=== PATIENT | female | born 1940 | race Native Hawaiian/Other Pacific Islander ===

== ENCOUNTER 2021-11-22 10:18 | Inpatient (IN) | payer MEDICARE, OTHER ==
[2021-11-22 10:28] LABS: Glucose,Whole Blood 109 mg/dL (70-110)
--- NOTE | 2021-11-22 11:04 | ED ---
General Adult HPI - General Chief complaint: Altered Mental Status Stated complaint: weakness Time Seen by Provider: 11/22/21 10:19 Source: patient, family Mode of arrival: EMS - History of Present Illness Initial comments: Dictation was produced using [employer] dictation software. please excuse any grammatical, word or spelling errors. Chief Complaint: Patient is a 81-year-old female with past mental history of dementia and agitation presents emergency department for lethargy History of Present Illness: Patient is a 81-year-old female. History of present illness obtained from daughter was at the bedside. Patient is unable to provide history present illness. Patient arrived to ER via EMS. From home. Patient was brought to the ER for several days of lethargy and difficulty to arouse. She also has a new onset left facial droop. Patient has history of dementia normally resides in [place] however staying with a daughter. Daughter states that her symptoms began over the last 2-3 days. At first she was little lethargic however now she is difficult to arouse. The ROS documented in this emergency department record has been reviewed and con firmed by me. Those systems with pertinent positive or negative responses have been documented in the HPI. All other systems are other negative and/or noncontributory. PHYSICAL EXAM: General Impression: Lethargic, pinpoint pupils HEENT: Normocephalic atraumatic, extra-ocular movements intact, pupils pinpoint, dry mucous membranes Cardiovascular: Heart regular rate and rhythm Chest: Able to complete full sentences, no retractions, no tachypnea Abdomen: abdomen soft, non-tender, non-distended, no organomegaly Musculoskeletal: Pulses present and equal in all extremities, no peripheral edema Motor: no focal deficits noted Neurological: Left-sided facial droop, moves all extremities with noxious stimuli Skin: Intact with no visualized rashes ED course: 81-year-old female with multiple comorbidities presents to the ER for lethargy and focal neurologic deficit. Onset of symptoms was within the last 48 hours. No clear last known normal coronary daughter. Patient outside the window for alteplase. Vital signs upon arrival are within acceptable limits. [id number] blood glucose is 109. Laboratory evaluation obtained CBC unremarkable. Coag panel is negative. Metabolic panel is negative. Magnesium 1.1. Rest of labs within acceptable limits. No UTI. Urine drug screen positive for benzodiazepines and TCAs. CT of the brain is unremarkable for an acute processes. Chest x-ray shows subsegmental changes likely atelectasis. CT angios of the head and neck shows diminished vessel density of the left MCA. Case was discussed with neurology who believes the patient is appropriate for admission to our facility. Patient reevaluated at bedside and found to be in similar condition to when she arrived. Patient will be admitted. There is agreeable with plan. EKG interpretation: Ventricular rate 87, sinus rhythm,. 135, appears 86, QTC 410. No W[place] prolongation, no QTC prolongation, no ST or T-wave changes noted. Overall, this EKG is unremarkable - Related Data Allergies Allergy/AdvReac Type Severity Reaction Status Date / Time NSAIDS (Non-Steroidal Allergy Anaphylaxis Verified 11/22/21 10:42 Anti-Inflamma Penicillins Allergy Anaphylaxis Verified 11/22/21 10:41 Review of Systems ROS Statement: Those systems with pertinent positive or pertinent negative responses have been documented in the HPI. ROS Other: All systems not noted in ROS Statement are negative. Past Medical History Past Medical History: Dementia, Diabetes Mellitus, Hypertension Additional Past Medical History / Comment(s): diverticulitis,cataracts, History of Any Multi-Drug Resistant Organisms: None Reported Past Surgical History: Bowel Resection, Hysterectomy Past Psychological History: No Psychological Hx Reported, Unable to Obtain Smoking Status: Never smoker Past Alcohol Use History: Rare Past Drug Use History: None Reported Course Vital Signs 11/22/21 11/22/21 11/22/21 10:23 10:32 11:06 Temperature 98.3 F Pulse Rate 84 87 88 Respiratory 20 16 16 Rate Blood Pressure 183/86 183/86 151/76 O2 Sat by Pulse 92 L 97 98 Oximetry 11/22/21 11:41 Temperature Pulse Rate 92 Respiratory 20 Rate Blood Pressure 159/60 O2 Sat by Pulse 95 Oximetry Medical Decision Making - Lab Data Result diagrams: 11/22/21 11:02 11/22/21 11:02 Lab Results 11/22/21 11/22/21 11/22/21 Range/Units 10:27 11:02 11:02 WBC 9.3 (3.8-10.6) k/uL RBC 4.02 (3.80-5.40) m/uL Hgb 11.8 (11.4-16.0) gm/dL Hct 36.9 (34.0-46.0) % MCV 91.9 (80.0-100.0) fL MCH 29.4 (25.0-35.0) pg MCHC 32.0 (31.0-37.0) g/dL RDW 14.2 (11.5-15.5) % Plt Count 234 (150-450) k/uL MPV 7.6 Neutrophils % 71 % Lymphocytes % 22 % Monocytes % 5 % Eosinophils % 1 % Basophils % 0 % Neutrophils # 6.6 (1.3-7.7) k/uL Lymphocytes # 2.1 (1.0-4.8) k/uL Monocytes # 0.4 (0-1.0) k/uL Eosinophils # 0.1 (0-0.7) k/uL Basophils # 0.0 (0-0.2) k/uL PT 10.9 (9.0-12.0) sec INR 1.0 (<1.2) APTT 19.6 L (22.0-30.0) sec Sodium (137-145) mmol/L Potassium (3.5-5.1) mmol/L Chloride (98-107) mmol/L Carbon Dioxide (22-30) mmol/L Anion Gap mmol/L BUN (7-17) mg/dL Creatinine (0.52-1.04) mg/dL Est GFR (CKD-EPI)AfAm (>60 ml/min/1.73 sqM) Est GFR (CKD-EPI)NonAf (>60 ml/min/1.73 sqM) Glucose (74-99) mg/dL POC Glucose (mg/dL) 109 (70-110) mg/dL POC Glu Coloring Checker ID Kishor Grover Plasma Lactic Acid [place] (0.7-2.0) mmol/L Calcium (8.4-10.2) mg/dL Magnesium (1.6-2.3) mg/dL Total Bilirubin (0.2-1.3) mg/dL AST (14-36) U/L ALT (4-34) U/L Alkaline Phosphatase (38-126) U/L Troponin I (0.000-0.034) ng/mL Total Protein (6.3-8.2) g/dL Albumin (3.5-5.0) g/dL Urine Color Urine Appearance (Clear) Urine pH (5.0-8.0) Ur Specific [place] (1.001-1.035) Urine Protein (Negative) Urine Glucose (UA) (Negative) Urine Ketones (Negative) Urine Blood (Negative) Urine Nitrite (Negative) Urine Bilirubin (Negative) Urine Urobilinogen (<2.0) mg/dL Ur Leukocyte Esterase (Negative) Urine Opiates Screen (NotDetected) Ur Oxycodone Screen (NotDetected) Urine Methadone Screen (NotDetected) Ur Propoxyphene Screen (NotDetected) Ur Barbiturates Screen (NotDetected) U Tricyclic Antidepress (NotDetected) Ur Phencyclidine Scrn (NotDetected) Ur Amphetamines Screen (NotDetected) U Methamphetamines Scrn (NotDetected) U Benzodiazepines Scrn (NotDetected) Urine Cocaine Screen (NotDetected) U Marijuana (THC) Screen (NotDetected) 11/22/21 11/22/21 11/22/21 Range/Units 11:02 11:02 11:02 WBC (3.8-10.6) k/uL RBC (3.80-5.40) m/uL Hgb (11.4-16.0) gm/dL Hct (34.0-46.0) % MCV (80.0-100.0) fL MCH (25.0-35.0) pg MCHC (31.0-37.0) g/dL RDW (11.5-15.5) % Plt Count (150-450) k/uL MPV Neutrophils % % Lymphocytes % % Monocytes % % Eosinophils % % Basophils % % Neutrophils # (1.3-7.7) k/uL Lymphocytes # (1.0-4.8) k/uL Monocytes # (0-1.0) k/uL Eosinophils # (0-0.7) k/uL Basophils # (0-0.2) k/uL PT (9.0-12.0) sec INR (<1.2) APTT (22.0-30.0) sec Sodium 139 (137-145) mmol/L Potassium 3.6 (3.5-5.1) mmol/L Chloride 106 (98-107) mmol/L Carbon Dioxide 24 (22-30) mmol/L Anion Gap 9 mmol/L BUN 11 (7-17) mg/dL Creatinine 0.64 (0.52-1.04) mg/dL Est GFR (CKD-EPI)AfAm >90 (>60 ml/min/1.73 sqM) Est GFR (CKD-EPI)NonAf 83 (>60 ml/min/1.73 sqM) Glucose 107 H (74-99) mg/dL POC Glucose (mg/dL) (70-110) mg/dL POC Glu Coloring Checker ID Plasma Lactic Acid [place] 1.1 (0.7-2.0) mmol/L Calcium 9.5 (8.4-10.2) mg/dL Magnesium 1.1 L (1.6-2.3) mg/dL Total Bilirubin 0.7 (0.2-1.3) mg/dL AST 19 (14-36) U/L ALT 10 (4-34) U/L Alkaline Phosphatase 50 (38-126) U/L Troponin I (0.000-0.034) ng/mL Total Protein 6.3 (6.3-8.2) g/dL Albumin 3.5 (3.5-5.0) g/dL Urine Color Yellow Urine Appearance Clear (Clear) Urine pH 5.0 (5.0-8.0) Ur Specific [place] 1.013 (1.001-1.035) Urine Protein Negative (Negative) Urine Glucose (UA) Negative (Negative) Urine Ketones Negative (Negative) Urine Blood Negative (Negative) Urine Nitrite Negative (Negative) Urine Bilirubin Negative (Negative) Urine Urobilinogen <2.0 (<2.0) mg/dL Ur Leukocyte Esterase Negative (Negative) Urine Opiates Screen Not Detected (NotDetected) Ur Oxycodone Screen Not Detected (NotDetected) Urine Methadone Screen Not Detected (NotDetected) Ur Propoxyphene Screen Not Detected (NotDetected) Ur Barbiturates Screen Not Detected (NotDetected) U Tricyclic Antidepress Detected H (NotDetected) Ur Phencyclidine Scrn Not Detected (NotDetected) Ur Amphetamines Screen Not Detected (NotDetected) U Methamphetamines Scrn Not Detected (NotDetected) U Benzodiazepines Scrn Detected H (NotDetected) Urine Cocaine Screen Not Detected (NotDetected) U Marijuana (THC) Screen Not Detected (NotDetected) 11/22/21 Range/Units 11:02 WBC (3.8-10.6) k/uL RBC (3.80-5.40) m/uL Hgb (11.4-16.0) gm/dL Hct (34.0-46.0) % MCV (80.0-100.0) fL MCH (25.0-35.0) pg MCHC (31.0-37.0) g/dL RDW (11.5-15.5) % Plt Count (150-450) k/uL MPV Neutrophils % % Lymphocytes % % Monocytes % % Eosinophils % % Basophils % % Neutrophils # (1.3-7.7) k/uL Lymphocytes # (1.0-4.8) k/uL Monocytes # (0-1.0) k/uL Eosinophils # (0-0.7) k/uL Basophils # (0-0.2) k/uL PT (9.0-12.0) sec INR (<1.2) APTT (22.0-30.0) sec Sodium (137-145) mmol/L Potassium (3.5-5.1) mmol/L Chloride (98-107) mmol/L Carbon Dioxide (22-30) mmol/L Anion Gap mmol/L BUN (7-17) mg/dL Creatinine (0.52-1.04) mg/dL Est GFR (CKD-EPI)AfAm (>60 ml/min/1.73 sqM) Est GFR (CKD-EPI)NonAf (>60 ml/min/1.73 sqM) Glucose (74-99) mg/dL POC Glucose (mg/dL) (70-110) mg/dL POC Glu Coloring Checker ID Plasma Lactic Acid [place] (0.7-2.0) mmol/L Calcium (8.4-10.2) mg/dL Magnesium (1.6-2.3) mg/dL Total Bilirubin (0.2-1.3) mg/dL AST (14-36) U/L ALT (4-34) U/L Alkaline Phosphatase (38-126) U/L Troponin I <0.012 (0.000-0.034) ng/mL Total Protein (6.3-8.2) g/dL Albumin (3.5-5.0) g/dL Urine Color Urine Appearance (Clear) Urine pH (5.0-8.0) Ur Specific [place] (1.001-1.035) Urine Protein (Negative) Urine Glucose (UA) (Negative) Urine Ketones (Negative) Urine Blood (Negative) Urine Nitrite (Negative) Urine Bilirubin (Negative) Urine Urobilinogen (<2.0) mg/dL Ur Leukocyte Esterase (Negative) Urine Opiates Screen (NotDetected) Ur Oxycodone Screen (NotDetected) Urine Methadone Screen (NotDetected) Ur Propoxyphene Screen (NotDetected) Ur Barbiturates Screen (NotDetected) U Tricyclic Antidepress (NotDetected) Ur Phencyclidine Scrn (NotDetected) Ur Amphetamines Screen (NotDetected) U Methamphetamines Scrn (NotDetected) U Benzodiazepines Scrn (NotDetected) Urine Cocaine Screen (NotDetected) U Marijuana (THC) Screen (NotDetected) Disposition Clinical Impression: Lethargy Disposition: ADMITTED IP TO THIS [facility] Condition: Fair Referrals: Nonstaff,Physician [Primary Care Provider] - 1-2 days Decision Time: 12:55
[2021-11-22 11:17] LABS: Basophils % (A) 0 %; Eosinophils # (A) 0.1 k/uL (0-0.7); Eosinophils % (A) 1 %; HCT 36.9 % (34.0-46.0); HGB 11.8 gm/dL (11.4-16.0); Lymphocytes # (A) 2.1 k/uL (1.0-4.8); Lymphocytes % (A) 22 %; MCH 29.4 pg (25.0-35.0); MCV 91.9 fL (80.0-100.0); Mean Platelet Volume 7.6; Monocytes # (A) 0.4 k/uL (0-1.0); Monocytes % (A) 5 %; Neutrophils # (A) 6.6 k/uL (1.3-7.7); Neutrophils % (A) 71 %; Platelet Count 234 k/uL (150-450); RBC 4.02 m/uL (3.80-5.40); RDW 14.2 % (11.5-15.5); WBC 9.3 k/uL (3.8-10.6)
[2021-11-22 11:19] LABS: Appearance,Urine Clear (Clear); Bilirubin,Urine Negative (Negative); Blood,Urine Negative (Negative); Color,Urine Yellow; Glucose,Urine (UA) Negative (Negative); Ketones,Urine Negative (Negative); Leukocyte Esterase,Urine Negative (Negative); Nitrite,Urine Negative (Negative); Protein,Urine Negative (Negative); Specific Gravity,Urine 1.013 (1.001-1.035); Urobilinogen,Urine <2.0 mg/dL (<2.0)
[2021-11-22 11:34] LABS: Prothrombin Time 10.9 sec (9.0-12.0)
--- NOTE | 2021-11-22 11:35 | XR ---
EXAMINATION TYPE: XR chest 1V portable DATE OF EXAM: 11/22/2021 COMPARISON: NONE HISTORY: Pain post fall TECHNIQUE: Single frontal view of the chest is obtained. FINDINGS: There is no focal air space opacity, pleural effusion, or pneumothorax seen. The cardiac silhouette size is within normal limits. The osseous structures are intact. Soft tissue calcificati ons left axilla. Atherosclerotic change aorta. Postsurgical change of the gastric region. Subsegmenta l changes at the lung bases. IMPRESSION: 1. Bilateral subsegmental changes at the lung bases likely in the bases reduced inspiration atelectas is or bronchiectasis.
[2021-11-22 11:37] LABS: Partial Thromboplastin Time 19.6 sec (22.0-30.0)
[2021-11-22 11:38] LABS: ALT 10 U/L (4-34); AST 19 U/L (14-36); African American GFR (CKD) >90 (>60 ml/min/1.73 sqM); Albumin 3.5 g/dL (3.5-5.0); Alkaline Phosphatase 50 U/L (38-126); Anion Gap 9 mmol/L; Blood Urea Nitrogen 11 mg/dL (7-17); Calcium 9.5 mg/dL (8.4-10.2); Carbon Dioxide 24 mmol/L (22-30); Chloride 106 mmol/L (98-107); Glucose 107 mg/dL (74-99); Magnesium 1.1 mg/dL (1.6-2.3); Non-African American GFR(CKD) 83 (>60 ml/min/1.73 sqM); Potassium 3.6 mmol/L (3.5-5.1); Sodium 139 mmol/L (137-145); Total Bilirubin 0.7 mg/dL (0.2-1.3); Total Protein 6.3 g/dL (6.3-8.2)
[2021-11-22 11:41] LABS: Cocaine Screen,Urine Not Detected (NotDetected); Opiate Screen,Urine Not Detected (NotDetected); Phencyclidine Screen,Urine Not Detected (NotDetected); Urn Cannabinoid Scrn Not Detected (NotDetected)
[2021-11-22 11:42] LABS: Amphetamine Screen,Urine Not Detected (NotDetected); Barbiturate Screen,Urine Not Detected (NotDetected); Benzodiazepines Screen,Urine Detected (NotDetected); Methadone Screen, Urine Not Detected (NotDetected); Oxycodone Screen, Urine Not Detected (NotDetected); Tricyclic Antidepressant,Urine Detected (NotDetected)
--- NOTE | 2021-11-22 12:01 | CT ---
EXAMINATION TYPE: CT angio head neck DATE OF EXAM: 11/22/2021 COMPARISON: None HISTORY: Fall. Facial droop CT DLP: 363.8 mGycm CONTRAST: Performed with IV Contrast, patient injected with 65 ML mL of Isovue 370. Combination Contrast CTA cervical carotids and [place] CTA cervical carotids with 3-D recons truction Contrast CTA of the cervical carotids was performed 3-D reconstruction imaging obtained at a separate workstation. Right carotid system: Mild plaque is seen of the right common carotid artery. There is mild plaque a lso noted at the carotid bulb and proximal ICA. No significant diameter reduction. ECA is patent. Right vertebral artery appears unremarkable. Left carotid system: Mild plaque is seen of the left common carotid artery. There is mild plaque als o noted at the carotid bulb and proximal ICA. No significant diameter reduction. ECA is patent. Lef t vertebral artery appears unremarkable. IMPRESSION: 1. No significant diameter reduction to account for the patient's symptoms. CTA [place] with 3-D reconstruction Contrast CTA of the [place] was performed 3-D reconstruction imaging obtained at a separate workstation. Vertebrobasilar system as well as intracranial portions of the internal carotid arteries and their ma urmila tributaries are patent. Diminished vessel density left MCA peripheral vessels compared to the rig ht. Correlate clinically. I do not see evidence for sizable aneurysm or vascular malformation. Plea se note MRI provides greater sensitivity and specificity. Visualized brain appears grossly unremarka ble. IMPRESSION: 1. Diminished vessel density left MCA peripheral vessels compared to the right. Correlate clinically. NASCET criteria was used in interpretation of this exam?
--- NOTE | 2021-11-22 12:04 | CT ---
EXAMINATION TYPE: CT brain cspine wo con DATE OF EXAM: 11/22/2021 COMPARISON: None HISTORY: Fall facial droop CT DLP: 1297 mGycm Automated exposure control for dose reduction was used. TECHNIQUE: CT scan of the head and cervical spine are performed without contrast. FINDINGS: There is no acute intracranial hemorrhage, mass effect, or midline shift identified. Mode rate generalized degenerative change with low attenuation in the white matter which is nonspecific bu t most typical of remote white matter ischemia. The globes are intact and the visualized sinuses are clear. Calcification in the basal ganglia noted. Low attenuation in the basal ganglia bilaterally no nspecific. Cervical spine is visualized in its entirety from C1 through upper thoracic levels and demonstrates s atisfactory alignment without evidence of acute fracture or dislocation. Prevertebral soft tissue ap pears within normal limits. Assessment spinal canal limited due to resolution and artifact. Hypertrop hic and degenerative changes throughout the cervical spine most marked at C5-C6 with a 3 mm retrolist hesis. Canal stenosis not excluded. Multilevel foraminal encroachment suspected with cervical spondyl osis and uncovertebral joint hypertrophy. I question a sagittal disc protrusion or herniation C3-C4. Follow-up MRI recommended. IMPRESSION: 1. There is no acute fracture or dislocation evident in the cervical spine. Multilevel degenerative c hange and facet arthropathy with suspected canal stenosis C5-C6 and bilateral foraminal encroachment. Question sagittal disc protrusion or herniation C3-C4. MRI recommended 2. No acute intracranial hemorrhage, mass effect, or midline shift is seen. Degenerative and nonspeci fic white matter change. If concern for acute ischemia correlate with MRI.
[2021-11-22] MEDS ORDERED: NALOXONE 0.4 MG/ML 1 ML VIAL IV PRN (12:47)
[2021-11-22] MEDS: SODIUM CHLORIDE 0.9% 1,000 ML IV SCH (13:43)
[2021-11-22] MEDS: MAGNESIUM SULFATE-D5W PMX 1 GM in DEXTROSE/WATER 1 100ML.BAG IVPB SCH ×2 (13:43→15:24)
[2021-11-22] MEDS ORDERED: CLOPIDOGREL 75 MG TAB PO SCH (15:30)
--- NOTE | 2021-11-22 15:43 | P.CNNES ---
History of Present Illness Consult date: 11/22/21 Requesting physician: Deon Weller Reason for Consult: altered mental status History of Present Illness: This is an 81-year-old woman with history of dementia, diabetes mellitus, hypertension who presented to the emergency department because of lethargy and difficulty to arouse for several days. The history is obtained from the ED physician. Unable to obtain history from the patient because of language barrier. The patient daughter was at bedside when she presented to the hospital and she notified that ED physician that the patient the was lethargic and difficult to arouse for several days and had new onset left facial droop. Patient resides in [place] however staying with her daughter. It seems that her symptoms began about 2-3 days ago. Patient is not on any antiplatelets or anticoagulation or statin use per the EMR. It seems that the patient is on Seroquel a total of 70 mg daily at bedtime. Patient is also on the amantadine for dementia. Some other workup during this ED visit consisted of: Patient initial vitals is a blood pressure of 183/86, heart rate of the 84, respiratory of 20, pulse ox of 92% in the initial temperature is 98.3 F orally. CBC differential is unremarkable Chemistry panel seems unremarkable except for the magnesium which is 1.1. TSH is 0.585. Urinalysis negative urinary tract infection. Urine drug screen is positive for tricyclic and benzo however the rest is nondetected. CT of the head is reported as no acute intracranial hemorrhage, mass effect or midline shift is seen. Degenerative nonspecific white matter changes. Of concern for acute ischemic orally with MRI. Personally reviewed the CT of the head and I agree report. I also feel the patient has generalized atrophy was is appropriate for age. CT of cervical spine was reported as there is no acute fracture or dislocation evident in the cervical spine. Multilevel degenerative changes and facet arthropathy with suspected canal stenosis C5-C6 and bilateral foraminal encroachment. Possible sagittal disc protrusion or herniation C3-C4. MRI recommended. Review of Systems Review of system is limited but that her pertinent positive and negative as per HPI Past Medical History Past Medical History: Dementia, Diabetes Mellitus, GERD/Reflux, Hypertension Additional Past Medical History / Comment(s): IDDM type II, neuropathy bilateral hand/feet, diverticular disease, past gastric ulcer with surgical repair, benign colon polyps, arthritis R arm/wrist. History of Any Multi-Drug Resistant Organisms: None Reported Past Surgical History: Hysterectomy Additional Past Surgical History / Comment(s): Laparotomy for stomach ulcer repair, colonoscopies, bilateral cataract removals/lens implants. Past Anesthesia/Blood Transfusion Reactions: No Reported Reaction Additional Past Anesthesia/Blood Transfusion Reaction / Comment(s): Pt has received blood in past without reaction. Past Psychological History: No Psychological Hx Reported Additional Psychological History / Comment(s): Pt resides in [place] with her son, Roger, who is her caregiver. She is her staying with her morgan and son in law for catrina over a week. Pt has dementia. She no longer is able to speak Malay d/t demenia but still understands spoken Malay. She now only speaks [place]ian. She ambulates with a wheeled walker. She is continent of urine and stool. She normally can feed herself. Family manages her medications. She can swallow pills but family call her pills her vitamins or she will get suspicious and not take them. Family wash and dress patient. Smoking Status: Never smoker Past Alcohol Use History: Rare Past Drug Use History: None Reported - Past Family History Father Family Medical History: No Reported History Additional Family Medical History / Comment(s): Father lived to be 81 yrs old. Mother Family Medical History: No Reported History Additional Family Medical History / Comment(s): Pt ls mother is 102 years old. Medications and Allergies Home Medications Medication Instructions Recorded Confirmed Type Insulin Glargine,Hum.rec.anlog 7 units SQ HS 11/22/21 11/22/21 History [Lantus Solostar Pen] Losartan Potassium [Cozaar] 100 mg PO DAILY 11/22/21 11/22/21 History Memantine HCl [Memantine HCl ER] 21 mg PO HS 11/22/21 11/22/21 History Metoprolol Tartrate [Lopressor] 25 mg PO BID 11/22/21 11/22/21 History Potassium Gluconate [Potassium 99 mg PO DAILY 11/22/21 11/22/21 History Gluconate ER] QUEtiapine FUMARATE [SEROquel] 25 mg PO HS 11/22/21 11/22/21 History QUEtiapine [SEROquel] 50 mg PO HS 11/22/21 11/22/21 History metFORMIN HCL [Glucophage] 1,000 mg PO BID 11/22/21 11/22/21 History sitaGLIPtin [Januvia] 100 mg PO HS 11/22/21 11/22/21 History Allergies Allergy/AdvReac Type Severity Reaction Status Date / Time NSAIDS (Non-Steroidal Allergy Anaphylaxis Verified 11/22/21 13:51 Anti-Inflamma Penicillins Allergy Anaphylaxis Verified 11/22/21 13:51 Physical Examination - Vital Signs Vital Signs: Vital Signs Temp Pulse Resp BP Pulse Ox 11/22/21 12:54 97 20 156/85 99 11/22/21 11:41 92 20 159/60 95 11/22/21 11:06 88 16 151/76 98 11/22/21 10:32 87 16 183/86 97 11/22/21 10:23 98.3 F 84 20 183/86 92 L Intake and Output 11/22/21 11/22/21 11/22/21 06:59 14:59 22:59 Other: Weight 53.7 kg GENERAL: The patient is lying in bed and is not in acute distress. CHEST: The heart rate is regular rate rhythm. No murmurs to auscultation. LUNG: Clear to auscultation bilaterally no wheezing noted throughout. Not labored breathing. ABDOMEN/GI: Bowel sounds present in all 4 quadrants. No tenderness to palpation throughout. NEUROLOGICAL: Limited because of language barrier. Higher mental function: The patient is drowsy but is awakeable to voice. She stated her name. Unable to tell me time or place. Patient is following simple commands by mimicking. She correctly stated watch. Unable to assess language in detailed. Cranial nerves: The pupils are round, equal and reactive to light. Has mild to moderate left facial droop. Rest is unable to assess. Motor: The strength is able to lift all extremities above gravity and no appreciable drift but unble to assess individual muscles because of cooperation. Normal tone and bulk. Cerebellum: Unable to assess. Sensation: Unable to assess. Reflexes (right/left): 1+ throughout. Plantars are mute bilaterally. Results - Laboratory Findings CBC and BMP: 11/22/21 11:02 11/22/21 11:02 Abnormal Lab Findings: Abnormal Labs 11/22/21 11/22/21 11/22/21 11:02 11:02 11:02 APTT 19.6 L Glucose 107 H Magnesium 1.1 L U Tricyclic Antidepress Detected H U Benzodiazepines Scrn Detected H Assessment and Plan Assessment: Left Facial droop with legargy and possible last normal was about 2-3 days ago. She was probable for subacute stroke. Dementia Diabetes Plan: I start the patient on Plavix and not aspirin because of ALLERGY to NSAIDs as well as Lipitor for secondary stroke prophylaxis Ordered MRI of the brain, 2-D echo, vitamin B12, folate I ordered a routine EEG. I'll not start the patient on antiepileptic drug unless there is epileptiform discharges or seizure on the EEG PT and OT are consulted Every 4 hours neuro checks On Cardiac monitoring We'll defer the rest of the medical management to primary team For DVT prophylaxis start the patient on 5000 units every 12 hours Thank you for the consultation. Jesús Woo M.D. Neuro-Hospitalist Time with Patient: Less than 30
[2021-11-22 20:23] LABS: Glucose,Whole Blood 139 mg/dL (70-110)
[2021-11-22] MEDS: INSULIN DETEMIR (LEVEMIR) 100 UNIT/ML SYR SQ SCH (20:38)
[2021-11-22] MEDS ORDERED: QUEtiapine 50 MG TAB PO SCH (21:00)
[2021-11-22] MEDS: HEPARIN SODIUM,PORCINE/PF 5,000 UNIT/0.5 ML SYRINGE SQ SCH (21:20)
[2021-11-22] MEDS: LINAGLIPTIN 5 MG TABLET PO SCH (21:24)
[2021-11-22] MEDS: QUEtiapine 25 MG TAB PO SCH (21:24)
[2021-11-22] MEDS: CLOPIDOGREL 75 MG TAB PO SCH (21:24)
[2021-11-22] MEDS: ATORVASTATIN 20 MG TAB PO SCH (21:24)
[2021-11-22] MEDS: METOPROLOL TARTRATE 25 MG TAB PO SCH (21:24)
[2021-11-22] MEDS ORDERED: HALOPERIDOL LACTATE 5 MG/ML 1 ML VIAL IM ONE (22:50)
--- NOTE | 2021-11-23 02:02 | EEG ---
ELECTROENCEPHALOGRAM REPORT CLINICAL HISTORY: This is an 81-year-old woman with altered mental status. The video EEG is obtained to evaluate for seizure epileptiform activity. RELEVANT MEDICATION: The patient is not on any antiepileptic drugs. EEG TYPE: A routine 21 channel EEG is performed with video using the 10/20 electrode placement system. DESCRIPTION: Wakefulness and drowsiness are obtained. During awake state, the background consists of low to moderate voltage of 6.5 to 7 hertz. During unstimulated state, the background consists of predominantly diffuse nonrhythmic delta activity. There is no physiological stage 2 sleep architecture. There is no focal slowing. INTERICTAL AND ICTAL: None. ACTIVATION PROCEDURE: Photic stimulation and hyperventilation is not performed. CLINICAL INTERPRETATION: This is an abnormal routine EEG. The background consists of moderate encephalopathy of unknown etiology. Otherwise, there is no focal slowing, epileptiform discharge, or seizure on the EEG. Clinical correlation is recommended JERARDO / OLEG: [id number] / MTDD
[2021-11-23] MEDS: SODIUM CHLORIDE 0.9% 1,000 ML IV SCH ×2 (06:21→14:48)
[2021-11-23 07:02] LABS: Glucose,Whole Blood 144 mg/dL (70-110)
--- NOTE | 2021-11-23 08:13 | XR ---
EXAMINATION TYPE: XR forearm RT DATE OF EXAM: 11/23/2021 8:07 AM INDICATION: Patient age:Female; 81 years old; Reason for study: fall, pain; COMPARISON: None TECHNIQUE: The right forearm was examined in AP and lateral projections. FINDINGS: No acute osseous pathology, soft tissue swelling or joint dislocations are seen. Chondroca lcinosis of the TFCC. IMPRESSION: No evidence of acute fracture.
--- NOTE | 2021-11-23 08:13 | XR ---
EXAMINATION TYPE: XR humerus RT, XR shoulder complete RT DATE OF EXAM: 11/23/2021 8:07 AM INDICATION: Patient age:Female; 81 years old; Reason for study: fall, pain; PHH. COMPARISON: None TECHNIQUE: The right humerus was examined in AP, internally rotated and axillary projections. TECHNIQUE: The right shoulder was examined in AP, internally rotated and scapular Y projections. . FINDINGS: Mild calcification at the insertion of the rotator cuff. No evidence of acute osseous patho logy, joint dislocation, or soft tissue swelling. The remaining portions of the visualized chest are unremarkable. IMPRESSION: 1. No acute osseous pathology. 2. Suspected underlying rotator cuff tendinopathy possibly calcific tendinopathy. Consider MRI of th e shoulder.
--- NOTE | 2021-11-23 08:33 | P.HPIM ---
History of Present Illness H&P Date: 11/22/21 Chief Complaint: Altered mental status/weakness 81-year-old female. History of present illness obtained from daughter was at the bedside. Patient is unable to provide history present illness. Patient arrived to ER via EMS. From home. Patient was brought to the ER for several days of lethargy and difficulty to arouse. She also has a new onset left facial droop. Patient has history of dementia normally resides in [place] however staying with a daughter. Daughter states that her symptoms began over the last 2-3 days. At first she was little lethargic however now she is difficult to arouse. Chemistry panel seems unremarkable except for the magnesium which is 1.1. TSH is 0.585. Urinalysis negative urinary tract infection. Urine drug screen is positive for tricyclic and benzo however the rest is nondetected. CT of the head is reported as no acute intracranial hemorrhage, mass effect or midline shift is seen. Degenerative nonspecific white matter changes. Of concern for acute ischemic orally with MRI. Personally reviewed the CT of the head and I agree report. I also feel the patient has generalized atrophy was is appropriate for age. CT of cervical spine was reported as there is no acute fracture or dislocation evident in the cervical spine. Multilevel degenerative changes and facet arthropathy with suspected canal stenosis C5-C6 and bilateral foraminal encroachment. Possible sagittal disc protrusion or herniation C3-C4. MRI recommended. Review of Systems ROS unobtainable: due to mental status Past Medical History Past Medical History: Dementia, Diabetes Mellitus, GERD/Reflux, Hypertension Additional Past Medical History / Comment(s): IDDM type II, neuropathy bilateral hand/feet, diverticular disease, past gastric ulcer with surgical repair, benign colon polyps, arthritis R arm/wrist. History of Any Multi-Drug Resistant Organisms: None Reported Past Surgical History: Hysterectomy Additional Past Surgical History / Comment(s): Laparotomy for stomach ulcer repair, colonoscopies, bilateral cataract removals/lens implants. Past Anesthesia/Blood Transfusion Reactions: No Reported Reaction Additional Past Anesthesia/Blood Transfusion Reaction / Comment(s): Pt has received blood in past without reaction. Past Psychological History: No Psychological Hx Reported Additional Psychological History / Comment(s): Pt resides in [place] with her son, Roger, who is her caregiver. She is her staying with her morgan and son in law for [employer] over a week. Pt has dementia. 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 She now only speaks Senegalese. She ambulates with a wheeled walker. She is continent of urine and stool. She normally can feed herself. Family manages her medications. She can swallow pills but family call her pills her vitamins or she will get suspicious and not take them. Family wash and dress patient. Smoking Status: Never smoker Past Alcohol Use History: Rare Past Drug Use History: None Reported - Past Family History Father Family Medical History: No Reported History Additional Family Medical History / Comment(s): Father lived to be 81 yrs old. Mother Family Medical History: No Reported History Additional Family Medical History / Comment(s): Pt ls mother is 102 years old. Medications and Allergies Home Medications Medication Instructions Recorded Confirmed Type Insulin Glargine,Hum.rec.anlog 7 units SQ 11/22/21 11/22/21 History [Lantus Solostar Pen] Losartan Potassium [Cozaar] 100 mg PO DAILY 11/22/21 11/22/21 History Memantine HCl [Memantine HCl ER] 21 mg PO HS 11/22/21 11/22/21 History Metoprolol Tartrate [Lopressor] 25 mg PO BID 11/22/21 11/22/21 History Potassium Gluconate [Potassium 99 mg PO DAILY 11/22/21 11/22/21 History Gluconate ER] QUEtiapine FUMARATE [SEROquel] 25 mg PO HS 11/22/21 11/22/21 History QUEtiapine [SEROquel] 50 mg PO HS 11/22/21 11/22/21 History metFORMIN HCL [Glucophage] 1,000 mg PO BID 11/22/21 11/22/21 History sitaGLIPtin [Januvia] 100 mg PO HS 11/22/21 11/22/21 History Allergies Allergy/AdvReac Type Severity Reaction Status Date / Time NSAIDS (Non-Steroidal Allergy Anaphylaxis Verified 11/22/21 13:51 Anti-Inflamma Penicillins Allergy Anaphylaxis Verified 11/22/21 13:51 Physical Exam Vitals: Vital Signs Temp Pulse Resp BP Pulse Ox 11/22/21 17:15 98.6 F 88 20 155/90 97 11/22/21 15:25 98 F 87 16 154/99 99 11/22/21 12:54 97 20 156/85 99 11/22/21 11:41 92 20 159/60 95 11/22/21 11:06 88 16 151/76 98 11/22/21 10:32 87 16 183/86 97 11/22/21 10:23 98.3 F 84 20 183/86 92 L Intake and Output 11/22/21 11/22/21 11/22/21 06:59 14:59 22:59 Other: Weight 53.7 kg General Impression: Lethargic, pinpoint pupils HEENT: Normocephalic atraumatic, extra-ocular movements intact, pupils pinpoint, dry mucous membranes Cardiovascular: Heart regular rate and rhythm Chest: Able to complete full sentences, no retractions, no tachypnea Abdomen: abdomen soft, non-tender, non-distended, no organomegaly Musculoskeletal: Pulses present and equal in all extremities, no peripheral edema Motor: no focal deficits noted Neurological: Left-sided facial droop, moves all extremities with noxious stimuli Skin: Intact with no visualized rashes Results CBC & Chem 7: 11/22/21 11:02 11/22/21 11:02 Labs: Abnormal Lab Results - Last 24 Hours (Table) 11/22/21 11/22/21 11/22/21 Range/Units 11:02 11:02 11:02 APTT 19.6 L (22.0-30.0) sec Glucose 107 H (74-99) mg/dL Magnesium 1.1 L (1.6-2.3) mg/dL U Tricyclic Antidepress Detected H (NotDetected) U Benzodiazepines Scrn Detected H (NotDetected) Thrombosis Risk Factor Assmnt - Choose All That Apply Any of the Below Risk Factors Present?: Yes Each Factor Represents 1 point: Obesity (BMI >25) Other Risk Factors: Yes Each Risk Factor Represents 3 Points: Age 75 years or older Other congenital or acquired thrombophilia - If yes, enter type in comment: No Thrombosis Risk Factor Assessment Total Risk Factor Score: 4 Thrombosis Risk Factor Assessment Level: Moderate Risk Assessment and Plan Assessment: 1. Altered mental status/left facial droop; possible acute versus subacute CVA - Patient has been evaluated by neurology and has been placed on Plavix due to ALLERGY to NSAIDs; Lipitor decided for secondary stroke prophylaxis; patient is cleared for DVT prophylaxis with subcu heparin 5000 units every 12 hours - MRI of the brain, 2-D echo, EEG and vitamin B12 and folic acid levels are ordered - Patient will be placed on telemetry; neurochecks every 4 hours - PT/OT consulted 2. Diabetes mellitus; controlled with insulin; we will resume home dose of Levemir 7 units subcu daily at bedtime; Tradjenta 5 mg by mouth daily at b edtime; we'll hold metformin; monitor Accu-Cheks every before meals and at bedtime with insulin sliding scale 3. Hypertension; metoprolol 25 mg twice a day 4. Dementia with behavior disturbance; we will continue with home dose of Namenda 7.5 mg twice a day along with home dose of Seroquel DVT prophylaxis; SCDs/subcu heparin
[2021-11-23] MEDS: MEMANTINE 5 MG TAB PO SCH ×2 (08:36→21:35)
[2021-11-23] MEDS: METOPROLOL TARTRATE 25 MG TAB PO SCH ×2 (08:36→21:35)
[2021-11-23] MEDS: HEPARIN SODIUM,PORCINE/PF 5,000 UNIT/0.5 ML SYRINGE SQ SCH ×2 (08:36→21:43)
[2021-11-23] MEDS: LOSARTAN 50 MG TAB PO SCH (08:36)
[2021-11-23] MEDS ORDERED: NON FORMULARY DRUG (Potassium Gluconate [Potassium Gluconate Er] 99 MG Tablet) PO SCH (09:00)
[2021-11-23 09:49] LABS: Basophils % (A) 1 %; Eosinophils # (A) 0.1 k/uL (0-0.7); Eosinophils % (A) 1 %; HGB 12.1 gm/dL (11.4-16.0); Lymphocytes # (A) 1.2 k/uL (1.0-4.8); Lymphocytes % (A) 18 %; MCH 29.7 pg (25.0-35.0); MCHC 32.8 g/dL (31.0-37.0); MCV 90.5 fL (80.0-100.0); Mean Platelet Volume 7.1; Monocytes # (A) 0.3 k/uL (0-1.0); Monocytes % (A) 4 %; Neutrophils # (A) 5.3 k/uL (1.3-7.7); Neutrophils % (A) 76 %; Platelet Count 225 k/uL (150-450); RBC 4.08 m/uL (3.80-5.40); RDW 14.3 % (11.5-15.5); WBC 6.9 k/uL (3.8-10.6)
[2021-11-23 09:57] LABS: African American GFR (CKD) >90 (>60 ml/min/1.73 sqM); Anion Gap 10 mmol/L; Blood Urea Nitrogen 6 mg/dL (7-17); Carbon Dioxide 25 mmol/L (22-30); Chloride 103 mmol/L (98-107); Glucose 127 mg/dL (74-99); Magnesium 1.3 mg/dL (1.6-2.3); Non-African American GFR(CKD) 88 (>60 ml/min/1.73 sqM); Potassium 3.4 mmol/L (3.5-5.1); Sodium 138 mmol/L (137-145)
[2021-11-23] MEDS ORDERED: Potassium Replacement Protocol 1 EACH MISC MISCELLANE PRN (10:02)
[2021-11-23] MEDS ORDERED: Magnesium Replacement Protocol 1 EACH MISC MISCELLANE PRN (10:02)
[2021-11-23] MEDS: MAGNESIUM SULFATE-D5W PMX 1 GM in DEXTROSE/WATER 1 100ML.BAG IVPB SCH ×3 (10:14→14:45)
[2021-11-23] MEDS: CYANOCOBALAMIN 1,000 MCG/ML 1 ML VIAL IM SCH (10:14)
[2021-11-23 11:37] LABS: Glucose,Whole Blood 186 mg/dL (70-110)
--- NOTE | 2021-11-23 11:49 | P.PN ---
Subjective Progress Note Date: 11/23/21 Per the nurse, patient seems about the same but hard to assess because of language barrier. Objective - Vital Signs Vital signs: Vital Signs Temp 98.2 F 11/23/21 08:00 Pulse 95 11/23/21 08:00 Resp 16 11/23/21 08:00 BP 129/65 11/23/21 08:00 Pulse Ox 96 11/23/21 08:00 FiO2 Intake & Output 11/22/21 11/23/21 11/23/21 18:59 06:59 18:59 Output Total 400 Balance -400 Weight 53.7 kg Output: Urine 400 Other: Voiding Method Diaper Diaper Incontinent Incontinent External Catheter External Catheter # Voids 1 - Exam GENERAL: The patient is lying in bed and is not in acute distress. NEUROLOGICAL: Limited because of language barrier. Higher mental function: The patient is slightly drowsy but is awakeable to voice. She stated her name. Patient is following simple commands by mimicking. Unable to assess language in detailed. Cranial nerves: The pupils are round, equal and reactive to light. Visual field appears normal throughout to confrontation. EOM intact and no nystagmus. I felt she has mild right nasolabial flattening. No dysarthria. Rest is unable to assess. Motor: The strength is able to lift all extremities above gravity and no appreciable drift but unble to assess individual muscles because of cooperation. Normal tone and bulk. Cerebellum: Unable to assess. Sensation: Unable to assess. Reflexes (right/left): 1+ throughout. Plantars are mute bilaterally. SOME OF THE WORK-UP DURING THIS HOSPITAL VISIT CONSISTED OF: TSH is 0.585. Vitamin B12 is 221 in the normal supposed to be between 200-944 Serum folate is 13.70 Urinalysis negative urinary tract infection. Urine drug screen is positive for tricyclic and benzo however the rest is nondetected. CT of the head is reported as no acute intracranial hemorrhage, mass effect or midline shift is seen. Degenerative nonspecific white matter changes. Of concern for acute ischemic orally with MRI. Personally reviewed the CT of the head and I agree report. I also feel the patient has generalized atrophy was is appropriate for age. CT of cervical spine was reported as there is no acute fracture or dislocation evident in the cervical spine. Multilevel degenerative changes and facet arthropathy with suspected canal stenosis C5-C6 and bilateral foraminal encroachment. Possible sagittal disc protrusion or herniation C3-C4. MRI recommended. CT and EEG is abnormal. The background the consisted of moderate encephalopathy of unknown etiology. Otherwise there is no focal slowing, epileptiform discharges or seizure on the EEG. - Labs CBC & Chem 7: 11/23/21 09:23 11/23/21 09:23 Labs: Abnormal Lab Results - Last 24 Hours (Table) 11/22/21 11/22/21 11/23/21 Range/Units 11:02 20:21 06:39 Potassium (3.5-5.1) mmol/L BUN (7-17) mg/dL Glucose (74-99) mg/dL POC Glucose (mg/dL) 139 H 144 H (70-110) mg/dL Magnesium (1.6-2.3) mg/dL U Tricyclic Antidepress Detected H (NotDetected) U Benzodiazepines Scrn Detected H (NotDetected) 11/23/21 11/23/21 Range/Units 09:23 11:35 Potassium 3.4 L (3.5-5.1) mmol/L BUN 6 L (7-17) mg/dL Glucose 127 H (74-99) mg/dL POC Glucose (mg/dL) 186 H (70-110) mg/dL Magnesium 1.3 L (1.6-2.3) mg/dL U Tricyclic Antidepress (NotDetected) U Benzodiazepines Scrn (NotDetected) Assessment and Plan Assessment: This is an 81-year-old woman who presented because of lethargy and initially possible left facial weakness going on for 2-3 days Right facial weakness and seems mild (reported in ED because left facial weakness). She was probable for subacute stroke. possible last normal was about 2-3 days ago prior to hospital. Encephalopathy of unknown etiology. Unknown if patient is at baseline. Patient has underlying dementia Low normal vitamin B12 (221) Dementia Diabetes Plan: Continue Plavix 75mg daily (not aspirin because of ALLERGY to NSAIDs) as well as Lipitor 20mg daily for secondary stroke prophylaxis Pending MRI of the brain, 2-D echo, lipid panel Because of low normal vitamin B12 I started the patient on vitamin B12 1000mcg IM for 3 days then after that PO daily. PT and OT are consulted Every 4 hours neuro checks On Cardiac monitoring We'll defer the rest of the medical management to primary team For DVT prophylaxis: On subq heparin 5000 units every 12 hours Plan was discussed with the patient's nurse. We'll try to get more information from the family. Jesús Woo M.D. Neuro-Hospitalist Time with Patient: Less than 30
--- NOTE | 2021-11-23 11:57 | P.CNOR ---
History of Present Illness - [facility] Consult date: 11/23/21 Requesting physician: Jesús Woo Consult reason: other (canal stenosis per cervical CT reported but I feel not significant) History of present illness: Patient is an 81-year-old female with a history of dementia, diabetes, hypertension who presented the emergency department and [facility] yesterday with lethargy. Patient was brought in by daughter. Patient normally resides in [place] but has been visiting her daughter here in [place]. Patient's daughter says over the past 2-3 days her mother has been becoming more lethargic and difficult to arouse. Patient's daughter then decided to bring patient in the hospital. Per the ED note, the patient did have new onset of left facial droop. Patient was seen at bedside this morning lying in the semirecumbent position. Orthopedics has been counseled for findings on cervical spine CT. Patient does not complain of any neck pain. Patient does point to her right hip when asked if she has pain. Patient does not speak [place] Zealander. History was difficult to obtain. Patient denies any previous orthopedic surgical history. CT of brain did not show any acute intracranial hemorrhage. There is some degenerative changes. Patient denies chest pain, fever, shortness breath, nausea, vomiting, change in vision, loss of bowel/bladder control. Past Medical History Past Medical History: Dementia, Diabetes Mellitus, GERD/Reflux, Hypertension Additional Past Medical History / Comment(s): IDDM type II, neuropathy bilateral hand/feet, diverticular disease, past gastric ulcer with surgical repair, benign colon polyps, arthritis R arm/wrist. History of Any Multi-Drug Resistant Organisms: None Reported Past Surgical History: Hysterectomy Additional Past Surgical History / Comment(s): Laparotomy for stomach ulcer repair, colonoscopies, bilateral cataract removals/lens implants. Past Anesthesia/Blood Transfusion Reactions: No Reported Reaction Additional Past Anesthesia/Blood Transfusion Reaction / Comm: Pt has received blood in past without reaction. Past Psychological History: No Psychological Hx Reported Additional Psychological History / Comment(s): Pt resides in [place] with her son, Roger, who is her caregiver. She is her staying with her morgan and son in law for alittle over a week. Pt has dementia. She no longer is able to speak [place]alander d/t demenia but still understands spoken [place]ander. She now only speaks Estonian. She ambulates with a wheeled walker. She is continent of urine and stool. She normally can feed herself. Family manages her medications. She can swallow pills but family call her pills her vitamins or she will get suspicious and not take them. Family wash and dress patient. Smoking Status: Never smoker Past Alcohol Use History: Rare Past Drug Use History: None Reported - Past Family History Father Family Medical History: No Reported History Additional Family Medical History / Comment(s): Father lived to be 81 yrs old. Mother Family Medical History: No Reported History Additional Family Medical History / Comment(s): Pt ls mother is 102 years old. Medications and Allergies Home Medications Medication Instructions Recorded Confirmed Type Insulin Glargine,Hum.rec.anlog 7 units SQ HS 11/22/21 11/22/21 History [Lantus Solostar Pen] Losartan Potassium [Cozaar] 100 mg PO DAILY 11/22/21 11/22/21 History Memantine HCl [Memantine HCl ER] 21 mg PO HS 11/22/21 11/22/21 History Metoprolol Tartrate [Lopressor] 25 mg PO BID 11/22/21 11/22/21 History Potassium Gluconate [Potassium 99 mg PO DAILY 11/22/21 11/22/21 History Gluconate ER] QUEtiapine FUMARATE [SEROquel] 25 mg PO HS 11/22/21 11/22/21 History QUEtiapine [SEROquel] 50 mg PO HS 11/22/21 11/22/21 History metFORMIN HCL [Glucophage] 1,000 mg PO BID 11/22/21 11/22/21 History sitaGLIPtin [Januvia] 100 mg PO HS 11/22/21 11/22/21 History Allergies Allergy/AdvReac Type Severity Reaction Status Date / Time NSAIDS (Non-Steroidal Allergy Anaphylaxis Verified 11/22/21 13:51 Anti-Inflamma Penicillins Allergy Anaphylaxis Verified 11/22/21 13:51 Physical Examination Negative for any open wounds/ulcers/erythema/ecchymosis. Negative for any open fractures. Sensation is equal, symmetric, bilaterally intact throughout exam. Patient is able to flex and extend both knees. Patient does have pain during range of motion of the right hip on flexion extension. Patient does have full range of motion of bilateral upper extremities. Neurovascular status is intact bilaterally. Radial pulses and dorsalis pedis pulses present bilaterally. Cap refill under 3 seconds in digits of upper extremities. 3+/5 in resisted right hip flexion/extension. 4/5 in all other major motor exam in bilateral upper and lower extremities. Patient does have some pain during rotation of right hip and during log roll maneuver onto right hip. Negative Homans bilaterally. Negative Daniel's bilaterally. Negative Babinski. Results - Labs Labs: Abnormal Lab Results - Last 24 Hours (Table) 11/22/21 11/22/21 11/22/21 Range/Units 11:02 11: 11:02 APTT 19.6 L (22.0-30.0) sec Potassium (3.5-5.1) mmol/L BUN (7-17) mg/dL Glucose 107 H (74-99) mg/dL POC Glucose (mg/dL) (70-110) mg/dL Magnesium 1.1 L (1.6-2.3) mg/dL U Tricyclic Antidepress Detected H (NotDetected) U Benzodiazepines Scrn Detected H (NotDetected) 11/22/21 11/23/21 11/23/21 Range/Units 20:21 06:39 09:23 APTT (22.0-30.0) sec Potassium 3.4 L (3.5-5.1) mmol/L BUN 6 L (7-17) mg/dL Glucose 127 H (74-99) mg/dL POC Glucose (mg/dL) 139 H 144 H (70-110) mg/dL Magnesium 1.3 L (1.6-2.3) mg/dL U Tricyclic Antidepress (NotDetected) U Benzodiazepines Scrn (NotDetected) H & H 11/22/21 11/23/21 Range/Units 11:02 09:23 Hgb 11.8 12.1 (11.4-16.0) gm/dL Hct 36.9 37.0 (34.0-46.0) % Coagulation 11/22/21 Range/Units 11: INR 1.0 (<1.2) Result Diagrams: 11/23/21 09:23 11/23/21 09:23 Assessment and Plan Assessment: 1. Cervical stenosis C5 to C6 Plan: 1. Cervical stenosis C5 to C6; right lower extremity pain - patient was seen at bedside this morning. CT of cervical spine does demonstrates some cervical canal stenosis at C5-C6. CT negative for any acute fractures or dislocations. There is evident multilevel degenerative disc disease on physical exam. Patient does not present with any significant weakness to upper extremities on exam. Patient does not complain or present with any tenderness to palpation during cervical spine exam. At this time we are not recommending any emergent/urgent orthopedic surgical intervention. X-ray right hip is to be obtained. We'll continue to follow patient while in hospital. 2. Appreciate medical management; appreciate neuro management 3. Pain management - Tylenol 4. DVT prophylaxis - Plavix; heparin 5. PT/OT - WBAT w/walker and assistance 6. Appreicate consult Time with Patient: Less than 30
--- NOTE | 2021-11-23 13:04 | XR ---
EXAMINATION TYPE: XR Hip Complete RT DATE OF EXAM: 11/23/2021 12:55 PM INDICATION: Patient age:Female; 81 years old; Reason for study: pain, fall; COMPARISON: None. TECHNIQUE: The right hip was examined in the frontal and lateral projections and a AP pelvis. FINDINGS: No evidence for acute process, joint dislocation or significant soft tissue swelling. Mild osteophyte formation of the acetabulum. IMPRESSION: No acute process.
[2021-11-23] MEDS: POTASSIUM BICARBONATE/CIT AC 20 MEQ TABLET.EFF NG-TUBE SCH ×2 (13:17→14:47)
--- NOTE | 2021-11-23 13:24 | MR ---
EXAMINATION TYPE: MR brain wo con DATE OF EXAM: 11/23/2021 12:52 PM COMPARISON: CT brain 11/22/2021. CLINICAL INDICATION:Female, 81 years old with history of left facial droop. stroke; TECHNIQUE: Multi planar, multi sequence imaging was performed through the brain including: T1, T2, In version recovery, Diffusion weighted imaging, and gradient echo imaging. No gadolinium was given. FINDINGS: The flores-white junctions, ventricular system, and cisterns appear unremarkable. Scattered foci of hi gh T2 signal intensity are seen within the periventricular white matter. Midline structures show no a bnormality. Diffusion-weighted imaging shows no evidence of restricted diffusion. The bone marrow signal is within normal limits. The paranasal sinuses demonstrate mild mucosal thicke stephanie. Bilateral aphakia. IMPRESSION: 1. No evidence of intracranial mass or acute/subacute infarct. 2. Nonspecific white matter changes, likely secondary to small vessel ischemic disease.
--- NOTE | 2021-11-23 13:50 | P.CN ---
Psychiatric Consult - . Consult date: 11/23/21 Consult:: 11/23/21 13:41 This is a psychiatric evaluation on Donna Moreno who is 81-year-old female with a recent diagnosis of subacute CVA and chronic dementia Patient has been hospitalized for altered mental status changes/left facial droop with the possibility of acute versus subacute CVA Would defer the medical details to the neurologist and the insurance account specialist A psychiatric consultation was requested regarding her Seroquel usage? The nursing reported that the patient was on Haldol as per the daughter and that this was changed to Seroquel in the last few days According to the chart the patient also noted to be more sedated The patient is unable to participate in any fruitful conversation Responses are gibberish and mostly in Senegalese Responses were unrelated to the questions asked Her formal and operational judgment and insight remains markedly impaired On other collateral information is available at this time Past Medical History Past Medical History: Dementia, Diabetes Mellitus, GERD/Reflux, Hypertension Additional Past Medical History / Comment(s): IDDM type II, neuropathy bilateral hand/feet, diverticular disease, past gastric ulcer with surgical repair, benign colon polyps, arthritis R arm/wrist. History of Any Multi-Drug Resistant Organisms: None Reported Past Surgical History: Hysterectomy Additional Past Surgical History / Comment(s): Laparotomy for stomach ulcer repair, colonoscopies, bilateral cataract removals/lens implants. Past Anesthesia/Blood Transfusion Reactions: No Reported Reaction Additional Past Anesthesia/Blood Transfusion Reaction / Comment(s): Pt has received blood in past without reaction. Past Psychological History: No Psychological Hx Reported Additional Psychological History / Comment(s): Pt resides in [place] with her son, Roger, who is her caregiver. She is her staying with her morgan and son in law for [facility] over a week. Pt has dementia. She no longer is able to speak Tunisian d/t demenia but still understands spoken Tunisian. She now only speaks Senegalese. She ambulates with a wheeled walker. She is continent of urine and stool. She normally can feed herself. Family manages her medications. She can swallow pills but family call her pills her vitamins or she will get suspicious and not take them. Family wash and dress patient. Smoking Status: Never smoker Past Alcohol Use History: Rare Past Drug Use History: None Reported Assessment and Plan Assessment: 1. Altered mental status/left facial droop; possible acute versus subacute CVA - Patient has been evaluated by neurology 2. Diabetes mellitus; controlled with insulin; 3. Hypertension; metoprolol 25 mg twice a day 4. Dementia with behavior disturbance; patient has been continued with home dose of Namenda 7.5 mg twice a day along with home dose of Seroquel DVT prophylaxis; SCDs/subcu heparin 5 it is unclear as to what type of intervention has been requested regarding Seroquel use I can make few suggestions as far as proper psychotropic drug usage in view of the patient's history of CVA and dementia 1 the patient will be quite sensitive to first-generation antipsychotics like haloperidol or Prolixin and would avoid it 2 cervical can be quite sedating and if the patient is found to be too lethargic that the dosage may be reduced The dosage may be anywhere between 12.5 mg 200 mg at nighttime depending on the tolerance Should also be monitored for exacerbation of EPS tremors hypotension and QTc prolongation 3 in the patient continues to show sedation would recommend dropping the Seroquel to 25-50 mg at bedtime 4 other alternators for agitation can also be gabapentin 100 mg up to 3 times a day Thank you her trip, referral please refer to contact me for the questions Ismael Vidal M.D. 11/23/2021
[2021-11-23 16:27] VITALS: BMI 32.0
[2021-11-23 16:28] LABS: Glucose,Whole Blood 217 mg/dL (70-110)
[2021-11-23 16:38] LABS: Chol/HDL Ratio 4.17 Ratio; LDL Cholesterol,Calculated 67.8 mg/dL (0.0-131.0)
[2021-11-23] MEDS: INSULIN ASPART (NovoLOG) 100 UNIT/ML VIAL SQ SCH ×2 (17:19→21:43)
--- NOTE | 2021-11-23 19:18 | P.PN ---
Subjective Progress Note Date: 11/23/21 81-year-old female. History of present illness obtained from daughter was at the bedside. Patient is unable to provide history present illness. Patient arrived to ER via EMS. From home. Patient was brought to the ER for several days of lethargy and difficulty to arouse. She also has a new onset left facial droop. Patient has history of dementia normally resides in [place] however staying with a daughter. Daughter states that her symptoms began over the last 2-3 days. At first she was little lethargic however now she is difficult to arouse. Chemistry panel seems unremarkable except for the magnesium which is 1.1. TSH is 0.585. Urinalysis negative urinary tract infection. Urine drug screen is positive for tricyclic and benzo however the rest is nondetected. CT of the head is reported as no acute intracranial hemorrhage, mass effect or midline shift is seen. Degenerative nonspecific white matter changes. Of concern for acute ischemic orally with MRI. Personally reviewed the CT of the head and I agree report. I also feel the patient has generalized atrophy was is appropriate for age. CT of cervical spine was reported as there is no acute fracture or dislocation evident in the cervical spine. Multilevel degenerative changes and facet arthropathy with suspected canal stenosis C5-C6 and bilateral foraminal encroachment. Possible sagittal disc protrusion or herniation C3-C4. MRI recommended Objective - Vital Signs Vital signs: Vital Signs Temp 98.2 F 11/23/21 08:00 Pulse 95 11/23/21 08:00 Resp 16 11/23/21 08:00 BP 129/65 11/23/21 08:00 Pulse Ox 96 11/23/21 08:00 FiO2 Intake & Output 11/22/21 11/23/21 11/23/21 18:59 06:59 18:59 Output Total 400 Balance -400 Weight 53.7 kg Output: Urine 400 Other: Voiding Method Diaper Diaper Incontinent Incontinent External Catheter External Catheter # Voids 1 - Exam General Impression: Lethargic, pinpoint pupils HEENT: Normocephalic atraumatic, extra-ocular movements intact, pupils pinpoint, dry mucous membranes Cardiovascular: Heart regular rate and rhythm Chest: Able to complete full sentences, no retractions, no tachypnea Abdomen: abdomen soft, non-tender, non-distended, no organomegaly Musculoskeletal: Pulses present and equal in all extremities, no peripheral edema Motor: no focal deficits noted Neurological: Left-sided facial droop, moves all extremities with noxious stimuli Skin: Intact with no visualized rashes - Labs CBC & Chem 7: 11/23/21 09:23 11/23/21 09:23 Labs: Abnormal Lab Results - Last 24 Hours (Table) 11/22/21 11/23/21 11/23/21 Range/Units 20:21 06:39 09:23 Potassium 3.4 L (3.5-5.1) mmol/L BUN 6 L (7-17) mg/dL Glucose 127 H (74-99) mg/dL POC Glucose (mg/dL) 139 H 144 H (70-110) mg/dL Magnesium 1.3 L (1.6-2.3) mg/dL 11/23/21 Range/Units 11:35 Potassium (3.5-5.1) mmol/L BUN (7-17) mg/dL Glucose (74-99) mg/dL POC Glucose (mg/dL) 186 H (70-110) mg/dL Magnesium (1.6-2.3) mg/dL Assessment and Plan Assessment: 1. Altered mental status/left facial droop; possible acute versus subacute CVA - Patient has been evaluated by neurology and has been placed on Plavix due to ALLERGY to NSAIDs; Lipitor decided for secondary stroke prophylaxis; patient is cleared for DVT prophylaxis with subcu heparin 5000 units every 12 hours - MRI of the brain, 2-D echo, EEG and vitamin B12 and folic acid levels are ordered - Patient will be placed on telemetry; neurochecks every 4 hours - PT/OT consulted 2. Diabetes mellitus; controlled with insulin; we will resume home dose of Levemir 7 units subcu daily at bedtime; Tradjenta 5 mg by mouth daily at bedtime; we'll hold metformin; monitor Accu-Cheks every before meals and at bedtime with insulin sliding scale 3. Hypertension; metoprolol 25 mg twice a day 4. Dementia with behavior disturbance; we will continue with home dose of Namenda 7.5 mg twice a day along with home dose of Seroquel DVT prophylaxis; SCDs/subcu heparin
[2021-11-23 19:51] LABS: Glucose,Whole Blood 175 mg/dL (70-110)
[2021-11-23] MEDS: ATORVASTATIN 20 MG TAB PO SCH (21:35)
[2021-11-23] MEDS: CLOPIDOGREL 75 MG TAB PO SCH (21:35)
[2021-11-23] MEDS: LINAGLIPTIN 5 MG TABLET PO SCH (21:35)
[2021-11-23] MEDS: INSULIN DETEMIR (LEVEMIR) 100 UNIT/ML SYR SQ SCH (21:47)
[2021-11-24] MEDS: SODIUM CHLORIDE 0.9% 1,000 ML IV SCH ×2 (02:00→17:20)
[2021-11-24] MEDS: CIPROFLOXACIN 0.3% OPHTH SOLN 5 ML BTL BOTH EYES SCH ×8 (03:08→23:29)
[2021-11-24] MEDS: QUEtiapine 25 MG TAB PO SCH ×2 (03:08→20:03)
[2021-11-24 06:09] LABS: Glucose,Whole Blood 107 mg/dL (70-110)
[2021-11-24] MEDS: INSULIN ASPART (NovoLOG) 100 UNIT/ML VIAL SQ SCH ×4 (06:09→20:02)
[2021-11-24 08:31] LABS: Basophils % (A) 0 %; Eosinophils # (A) 0.1 k/uL (0-0.7); Eosinophils % (A) 1 %; Lymphocytes # (A) 1.8 k/uL (1.0-4.8); Lymphocytes % (A) 29 %; MCH 29.4 pg (25.0-35.0); MCHC 32.4 g/dL (31.0-37.0); MCV 90.8 fL (80.0-100.0); Mean Platelet Volume 7.3; Monocytes # (A) 0.3 k/uL (0-1.0); Monocytes % (A) 5 %; Neutrophils # (A) 4.1 k/uL (1.3-7.7); Neutrophils % (A) 64 %; Platelet Count 204 k/uL (150-450); RBC 3.74 m/uL (3.80-5.40); RDW 14.1 % (11.5-15.5); WBC 6.4 k/uL (3.8-10.6)
[2021-11-24 08:42] LABS: African American GFR (CKD) >90 (>60 ml/min/1.73 sqM); Anion Gap 6 mmol/L; Blood Urea Nitrogen 4 mg/dL (7-17); Calcium 8.7 mg/dL (8.4-10.2); Carbon Dioxide 27 mmol/L (22-30); Chloride 105 mmol/L (98-107); Glucose 85 mg/dL (74-99); Magnesium 1.6 mg/dL (1.6-2.3); Non-African American GFR(CKD) 89 (>60 ml/min/1.73 sqM); Potassium 3.2 mmol/L (3.5-5.1); Sodium 138 mmol/L (137-145)
[2021-11-24] MEDS: MEMANTINE 5 MG TAB PO SCH ×2 (08:56→20:02)
[2021-11-24] MEDS: HEPARIN SODIUM,PORCINE/PF 5,000 UNIT/0.5 ML SYRINGE SQ SCH ×2 (08:56→20:03)
[2021-11-24] MEDS: CYANOCOBALAMIN 1,000 MCG/ML 1 ML VIAL IM SCH (08:57)
[2021-11-24] MEDS: LOSARTAN 50 MG TAB PO SCH (08:57)
[2021-11-24] MEDS: METOPROLOL TARTRATE 25 MG TAB PO SCH ×2 (08:57→20:03)
[2021-11-24] MEDS: POTASSIUM CHLORIDE 10 MEQ in WATER FOR INJECTION 1 100ML.BAG IVPB SCH ×3 (11:01→17:27)
--- NOTE | 2021-11-24 11:20 | P.PN ---
Subjective Progress Note Date: 11/24/21 The patient is seen at bedside and per nurse looks better. No new neurological deficits that is reported. I spoke with the patient's daughter (Francheska) and she stated patient is visiting her from [place] for the past 1.5 week. They noticed she was more sleepy this past and unawakeable Thursday and that was resulted to come to hospital. She has severe dementia and was weaned off Haldol and her neurologist was increasing Seroquel from 50mg to 75mg. she denied that the patient has any seizures. She denies any seizure-like activity at home while the patient was visiting her. She feels the patient is back to baseline currently. Objective - Vital Signs Vital signs: Vital Signs Temp 98.3 F 11/24/21 08:00 Pulse 77 11/24/21 08:00 Resp 16 11/24/21 08:00 BP 145/78 11/24/21 08:00 Pulse Ox 99 11/24/21 08:00 FiO2 Intake & Output 11/23/21 11/24/21 11/24/21 18:59 06:59 18:59 Output Total 150 250 Balance -150 -250 Weight 53.7 kg Output: Urine 150 250 Other: Voiding Method Diaper Diaper Diaper Incontinent Incontinent Incontinent External Catheter External Catheter External Catheter # Voids 1 - Exam GENERAL: The patient is lying in bed and is not in acute distress. NEUROLOGICAL: Limited because of language barrier. Higher mental function: The patient is awake, alert, oriented to self. Marika ent is following simple commands by mimicking. Unable to assess language in detailed. Cranial nerves: The pupils are round, equal and reactive to light. Visual field appears normal throughout to confrontation. EOM intact and no nystagmus. I felt she has mild right nasolabial flattening (unsure if this is old). No dysarthria. Rest is unable to assess. Motor: The strength is able to lift all extremities above gravity and no appreciable drift but unable to assess individual muscles because of cooperation. Has pain over the right shouder/arm region. Normal tone and bulk. Cerebellum: Unable to assess. Sensation: Unable to assess. Reflexes (right/left): 1+ throughout. Plantars are mute bilaterally. SOME OF THE WORK-UP DURING THIS HOSPITAL VISIT CONSISTED OF: Lipid panel is triglyceride 140, cholesterol 126, LDL 67 HDL is 30 TSH is 0.585. Vitamin B12 is 221 in the normal supposed to be between 200-944 Serum folate is 13.70 Urinalysis negative urinary tract infection. Urine drug screen is positive for tricyclic and benzo however the rest is nondetected. CT of the head is reported as no acute intracranial hemorrhage, mass effect or midline shift is seen. Degenerative nonspecific white matter changes. Of concern for acute ischemic orally with MRI. Personally reviewed the CT of the head and I agree report. I also feel the patient has generalized atrophy was is appropriate for age. CT of cervical spine was reported as there is no acute fracture or dislocation evident in the cervical spine. Multilevel degenerative changes and facet arthropathy with suspected canal stenosis C5-C6 and bilateral foraminal encroachment. Possible sagittal disc protrusion or herniation C3-C4. MRI recommended. CT and EEG is abnormal. The background the consisted of moderate encephalopathy of unknown etiology. Otherwise there is no focal slowing, epileptiform discharges or seizure on the EEG. MR the brain is reported as no evidence of intracranial mass or acute/subacute infarct. Nonspecific white matter changes, likely secondary due to small vessel ischemic disease. I personally reviewed the MRI and I agree with the report. - Labs CBC & Chem 7: 11/24/21 07:48 11/24/21 07:48 Labs: Abnormal Lab Results - Last 24 Hours (Table) 11/23/21 11/23/21 11/23/21 Range/Units 09:23 11:35 16:26 RBC (3.80-5.40) m/uL Hgb (11.4-16.0) gm/dL Potassium (3.5-5.1) mmol/L BUN (7-17) mg/dL POC Glucose (mg/dL) 186 H 217 H (70-110) mg/dL HDL Cholesterol 30.20 L (40.00-60.00) mg/dL 11/23/21 11/24/21 11/24/21 Range/Units 19:50 07:48 07:48 RBC 3.74 L (3.80-5.40) m/uL Hgb 11.0 L (11.4-16.0) gm/dL Potassium 3.2 L (3.5-5.1) mmol/L BUN 4 L (7-17) mg/dL POC Glucose (mg/dL) 175 H (70-110) mg/dL HDL Cholesterol (40.00-60.00) mg/dL Assessment and Plan Assessment: This is an 81-year-old woman who presented because of lethargy and initially possible left facial weakness going on for 2-3 days and has moved with the daughter from [place] for past week. She was on Haldol and Trazodone while in [place]. Right facial weakness and seems minimal (reported in ED because left facial weakness) and her symptoms could be old and not new. MRI Brain is negative for stroke (acute or subacute)---per daughter currently face is baseline Encephalopathy of unknown etiology. Patient has underlying severe dementia. Possibly due to medication use (antipsychotic: Haldol was discontinued but was on elevated seroquel and Trazodone while at [place])---per daughter back to baseline Severe Dementia Possible right rotator cuff Low normal vitamin B12 (221) Diabetes Hypertension Plan: Continue Plavix 75mg daily (not aspirin because of ALLERGY to NSAIDs) as well as Lipitor 20mg daily for secondary stroke prophylaxis. Will speak with patient's family about her ?facial droop and if no new recommend discontuing Plavix and Lipitor from neurological perspective. Because of low normal vitamin B12 I started the patient on vitamin B12 1000mcg IM for an additional 2 days then after that PO daily. PT and OT are consulted Every 4 hours neuro checks On Cardiac monitoring Psychiatry team is on board. Patient had an x-ray of the right humerus and is reported as suspect underlying rotator cuff tendon opacity possibly a calcific at the neuropathic. Consider MRI of the shoulder. Patient also has cervical canal stenosis and I consulted orthopedic team. She also has possible rotator cuff over the right We'll defer the rest of the medical management to primary team For DVT prophylaxis: On subq heparin 5000 units every 12 hours Plan was also discussed with the patient's daughter (Francheska) via phone and her nurse. No further neurological workup. We'll sign off. Please reconsult if needed. Dr. Major will start neurology service tomorrow AM if needed. Jesús Woo M.D. Neuro-Hospitalist Time with Patient: Less than 30
[2021-11-24 11:43] LABS: Glucose,Whole Blood 121 mg/dL (70-110)
[2021-11-24 16:33] LABS: Glucose,Whole Blood 122 mg/dL (70-110)
--- NOTE | 2021-11-24 16:59 | P.PN ---
Subjective Progress Note Date: 11/24/21 Principal diagnosis: Right-sided facial weakness/encephalopathy; likely related to medication use; Seroquel Severe dementia Low-normal vitamin B12 81-year-old female. History of present illness obtained from daughter was at the bedside. Patient is unable to provide history present illness. Patient arrived to ER via EMS. From home. Patient was brought to the ER for several days of lethargy and difficulty to arouse. She also has a new onset left facial droop. Patient has history of dementia normally resides in [place] however staying with a daughter. Daughter states that her symptoms began over the last 2-3 days. At first she was little lethargic however now she is difficult to arouse. Chemistry panel seems unremarkable except for the magnesium which is 1.1. TSH is 0.585. Urinalysis negative urinary tract infection. Urine drug screen is positive for tricyclic and benzo however the rest is nondetected. CT of the head is reported as no acute intracranial hemorrhage, mass effect or midline shift is seen. Degenerative nonspecific white matter changes. Of concern for acute ischemic orally with MRI. Personally reviewed the CT of the head and I agree report. I also feel the patient has generalized atrophy was is appropriate for age. CT of cervical spine was reported as there is no acute fracture or dislocation evident in the cervical spine. Multilevel degenerative changes and facet arthropathy with suspected canal stenosis C5-C6 and bilateral foraminal encroachment. Possible sagittal disc protrusion or herniation C3-C4. MRI recommended 11/24/2021 Patient is seen and evaluated with daughter at bedside; patient is more awake and alert and is sitting up in bed Signs are reviewed and remained stable; lab review reveals a low sodium of 3.2 which is supplemented MRI of the brain is completed and is negative for any acute or subacute stroke; patient's presentation is deemed likely due to medication use including Haldol and higher doses of Seroquel which have been discontinued Vitamin B12 levels are low normal; patient has been placed on vitamin B-12 supplement, thousand MCG IM daily for 3 days followed by by mouth Patient condition discussed with daughter at bedside and she is requesting PT evaluation for possible placement in skilled rehab Objective - Vital Signs Vital signs: Vital Signs Temp 98.3 F 11/24/21 08:00 Pulse 77 11/24/21 08:00 Resp 16 11/24/21 08:00 BP 145/78 11/24/21 08:00 Pulse Ox 99 11/24/21 08:00 FiO2 Intake & Output 11/23/21 11/24/21 11/24/21 18:59 06:59 18:59 Output Total 150 250 Balance -150 -250 Weight 53.7 kg Output: Urine 150 250 Other: Voiding Method Diaper Diaper Diaper Incontinent Incontinent Incontinent External Catheter External Catheter External Catheter # Voids 1 - Exam General Impression: Lethargic, pinpoint pupils HEENT: Normocephalic atraumatic, extra-ocular movements intact, pupils pinpoint, dry mucous membranes Cardiovascular: Heart regular rate and rhythm Chest: Able to complete full sentences, no retractions, no tachypnea Abdomen: abdomen soft, non-tender, non-distended, no organomegaly Musculoskeletal: Pulses present and equal in all extremities, no peripheral edema Motor: no focal deficits noted Neurological: Left-sided facial droop, moves all extremities with noxious stimuli Skin: Intact with no visualized rashes - Labs CBC & Chem 7: 11/24/21 07:48 11/24/21 07:48 Labs: Abnormal Lab Results - Last 24 Hours (Table) 11/23/21 11/23/21 11/23/21 Range/Units 09:23 11:35 16:26 RBC (3.80-5.40) m/uL Hgb (11.4-16.0) gm/dL Potassium (3.5-5.1) mmol/L BUN (7-17) mg/dL POC Glucose (mg/dL) 186 H 217 H (70-110) mg/dL HDL Cholesterol 30.20 L (40.00-60.00) mg/dL 11/23/21 11/24/21 11/24/21 Range/Units 19:50 07:48 07:48 RBC 3.74 L (3.80-5.40) m/uL Hgb 11.0 L (11.4-16.0) gm/dL Potassium 3.2 L (3.5-5.1) mmol/L BUN 4 L (7-17) mg/dL POC Glucose (mg/dL) 175 H (70-110) mg/dL HDL Cholesterol (40.00-60.00) mg/dL Assessment and Plan Assessment: 1. Altered mental status/left facial droop; possible acute versus subacute CVA - Patient has been evaluated by neurology and has been placed on Plavix due to ALLERGY to NSAIDs; Lipitor decided for secondary stroke prophylaxis; patient is cleared for DVT prophylaxis with subcu heparin 5000 units every 12 hours - MRI of the brain, 2-D echo, EEG and vitamin B12 and folic acid levels are ordered - Patient will be placed on telemetry; neurochecks every 4 hours - PT/OT consulted 2. Diabetes mellitus; controlled with insulin; we will resume home dose of Levemir 7 units subcu daily at bedtime; Tradjenta 5 mg by mouth daily at bedtime; we'll hold metformin; monitor Accu-Cheks every before meals and at bedtime with insulin sliding scale 3. Hypertension; metoprolol 25 mg twice a day 4. Dementia with behavior disturbance; we will continue with home dose of Namenda 7.5 mg twice a day along with home dose of Seroquel DVT prophylaxis; SCDs/subcu heparin
[2021-11-24 20:02] LABS: Glucose,Whole Blood 123 mg/dL (70-110)
[2021-11-24] MEDS: CLOPIDOGREL 75 MG TAB PO SCH (20:02)
[2021-11-24] MEDS: LINAGLIPTIN 5 MG TABLET PO SCH (20:02)
[2021-11-24] MEDS: ATORVASTATIN 20 MG TAB PO SCH (20:02)
[2021-11-24] MEDS: INSULIN DETEMIR (LEVEMIR) 100 UNIT/ML SYR SQ SCH (20:50)
[2021-11-25] MEDS: SODIUM CHLORIDE 0.9% 1,000 ML IV SCH (03:15)
[2021-11-25] MEDS: CIPROFLOXACIN 0.3% OPHTH SOLN 5 ML BTL BOTH EYES SCH ×5 (03:16→21:43)
[2021-11-25 06:23] LABS: Glucose,Whole Blood 46 mg/dL (70-110)
[2021-11-25] MEDS ORDERED: DEXTROSE 50% SYRINGE 50 ML IVP STA (06:24)
[2021-11-25 06:25] LABS: Glucose,Whole Blood 51 mg/dL (70-110)
[2021-11-25] MEDS: INSULIN ASPART (NovoLOG) 100 UNIT/ML VIAL SQ SCH ×4 (06:32→21:43)
[2021-11-25 06:44] LABS: Glucose,Whole Blood 167 mg/dL (70-110)
[2021-11-25] MEDS: CYANOCOBALAMIN 1,000 MCG/ML 1 ML VIAL IM SCH (07:58)
[2021-11-25] MEDS: METOPROLOL TARTRATE 25 MG TAB PO SCH ×2 (07:59→18:12)
[2021-11-25] MEDS: LOSARTAN 50 MG TAB PO SCH (07:59)
[2021-11-25] MEDS: MEMANTINE 5 MG TAB PO SCH ×2 (07:59→21:44)
[2021-11-25] MEDS: HEPARIN SODIUM,PORCINE/PF 5,000 UNIT/0.5 ML SYRINGE SQ SCH ×2 (07:59→21:44)
[2021-11-25 08:12] LABS: Basophils % (A) 0 %; Eosinophils % (A) 0 %; HCT 35.5 % (34.0-46.0); HGB 11.3 gm/dL (11.4-16.0); Lymphocytes # (A) 1.1 k/uL (1.0-4.8); Lymphocytes % (A) 14 %; MCH 29.4 pg (25.0-35.0); MCHC 31.7 g/dL (31.0-37.0); MCV 92.6 fL (80.0-100.0); Mean Platelet Volume 7.3; Monocytes # (A) 0.4 k/uL (0-1.0); Monocytes % (A) 5 %; Neutrophils # (A) 6.3 k/uL (1.3-7.7); Neutrophils % (A) 79 %; Platelet Count 235 k/uL (150-450); RBC 3.83 m/uL (3.80-5.40)
[2021-11-25 08:41] LABS: ALT 10 U/L (4-34); AST 16 U/L (14-36); African American GFR (CKD) >90 (>60 ml/min/1.73 sqM); Alkaline Phosphatase 50 U/L (38-126); Anion Gap 9 mmol/L; Bilirubin,Unconjugated 1.1 mg/dL (0.0-1.1); Blood Urea Nitrogen 4 mg/dL (7-17); Carbon Dioxide 24 mmol/L (22-30); Chloride 107 mmol/L (98-107); Glucose 132 mg/dL (74-99); Magnesium 1.3 mg/dL (1.6-2.3); Non-African American GFR(CKD) >90 (>60 ml/min/1.73 sqM); Potassium 3.1 mmol/L (3.5-5.1); Sodium 140 mmol/L (137-145); Total Bilirubin 1.1 mg/dL (0.2-1.3); Total Protein 5.6 g/dL (6.3-8.2)
[2021-11-25 11:20] LABS: Glucose,Whole Blood 165 mg/dL (70-110)
--- NOTE | 2021-11-25 11:59 | P.PN ---
Subjective Progress Note Date: 11/25/21 Principal diagnosis: -Cervical stenosis C5 to C6 -right hip pain Patient was seen at bedside this morning lying in semirecumbent position. Patient says she is not having any hip pain today. Patient says she is not having any neck pain either. Patient denies chest pain, fever, shortness of breath, nausea, vomiting, change in vision, loss/bladder control. Objective - Vital Signs Vital signs: Vital Signs Temp 97.9 F 11/25/21 08:07 Pulse 81 11/25/21 08:07 Resp 16 11/25/21 08:07 BP 151/86 11/25/21 08:07 Pulse Ox 95 11/25/21 08:07 FiO2 Intake & Output 11/24/21 11/25/21 11/25/21 18:59 06:59 18:59 Intake Total 360 Output Total 500 350 650 Balance -140 -350 -650 Intake: Oral 360 Output: Urine 500 350 650 Other: Voiding Method Diaper Diaper Diaper Incontinent Incontinent Incontinent External Catheter External Catheter External Catheter - Exam Negative for any open wounds/ulcers/erythema/ecchymosis. Negative for any open fractures. Sensation is equal, symmetric, bilaterally intact throughout exam. Patient is able to flex and extend both knees. Patient does have pain during range of motion of the right hip on flexion extension. Patient does have full range of motion of bilateral upper extremities. Neurovascular status is intact bilaterally. Radial pulses and dorsalis pedis pulses present bilaterally. Cap refill under 3 seconds in digits of upper extremities. 3+/5 in resisted right hip flexion/extension. 4/5 in all other major motor groups in bilateral upper and lower extremities. Negative Homans bilaterally. Negative Daniel's bilaterally. Negative Babinski. - Labs CBC & Chem 7: 11/25/21 07:34 11/25/21 07:34 Labs: Abnormal Lab Results - Last 24 Hours (Table) 11/24/21 11/24/21 11/24/21 Range/Units 11:41 16:32 20:01 Hgb (11.4-16.0) gm/dL Potassium (3.5-5.1) mmol/L BUN (7-17) mg/dL Creatinine (0.52-1.04) mg/dL Glucose (74-99) mg/dL POC Glucose (mg/dL) 121 H 122 H 123 H (70-110) mg/dL Magnesium (1.6-2.3) mg/dL Total Protein (6.3-8.2) g/dL Albumin (3.5-5.0) g/dL 11/25/21 11/25/21 11/25/21 Range/Units 06:21 06:23 06:43 Hgb (11.4-16.0) gm/dL Potassium (3.5-5.1) mmol/L BUN (7-17) mg/dL Creatinine (0.52-1.04) mg/dL Glucose (74-99) mg/dL POC Glucose (mg/dL) 46 L 51 L 167 H (70-110) mg/dL Magnesium (1.6-2.3) mg/dL Total Protein (6.3-8.2) g/dL Albumin (3.5-5.0) g/dL 11/25/21 11/25/21 Range/Units 07:34 07:34 Hgb 11.3 L (11.4-16.0) gm/dL Potassium 3.1 L (3.5-5.1) mmol/L BUN 4 L (7-17) mg/dL Creatinine 0.48 L (0.52-1.04) mg/dL Glucose 132 H (74-99) mg/dL POC Glucose (mg/dL) (70-110) mg/dL Magnesium 1.3 L (1.6-2.3) mg/dL Total Protein 5.6 L (6.3-8.2) g/dL Albumin 3.0 L (3.5-5.0) g/dL Assessment and Plan Assessment: 1. Cervical stenosis C5 to C6 Plan: 1. Cervical stenosis C5 to C6; right lower extremity pain - patient was seen at bedside this morning. CT of cervical spine does demonstrates some cervical ca nal stenosis at C5-C6. CT negative for any acute fractures or dislocations. There is evident multilevel degenerative disc disease on physical exam. Patient does not present with any significant weakness to upper extremities on exam. Patient does not complain or present with any tenderness to palpation during cervical spine exam. At this time we are not recommending any emergent/urgent orthopedic surgical intervention. X-ray right hip negative for dislocation/fractures. Patient is stable from an orthopedic standpoint for discharge. At this time orthopedics is signing off. Please do not hesitate to contact us for any further questions. Patient may follow-up in office with Dr. Levin. 2. Appreciate medical management; appreciate neuro management 3. Pain management - Tylenol 4. DVT prophylaxis - Plavix; heparin 5. PT/OT - WBAT w/walker and assistance 6. Appreicate consult Time with Patient: Less than 30
[2021-11-25] MEDS: MAGNESIUM SULFATE-D5W PMX 1 GM in DEXTROSE/WATER 1 100ML.BAG IVPB SCH ×3 (12:08→14:46)
[2021-11-25] MEDS ORDERED: POTASSIUM CHLORIDE ER 20 MEQ TAB.ER PO ONE (13:00)
[2021-11-25] MEDS ORDERED: POTASSIUM CHLORIDE ER 20 MEQ TAB.ER PO SCH (13:00)
[2021-11-25] MEDS: ACETAMINOPHEN TAB 325 MG TAB PO PRN (13:21)
[2021-11-25] MEDS ORDERED: QUEtiapine 25 MG TAB PO STA (14:08)
[2021-11-25 16:34] LABS: Glucose,Whole Blood 232 mg/dL (70-110)
--- NOTE | 2021-11-25 19:50 | P.PN ---
Subjective 81-year-old female. History of present illness obtained from daughter was at the bedside. Patient is unable to provide history present illness. Patient arrived to ER via EMS. From home. Patient was brought to the ER for several days of lethargy and difficulty to arouse. She also has a new onset left facial droop. Patient has history of dementia normally resides in [place] however staying with a daughter. Daughter states that her symptoms began over the last 2-3 days. At first she was little lethargic however now she is difficult to arouse. Chemistry panel seems unremarkable except for the magnesium which is 1.1. TSH is 0.585. Urinalysis negative urinary tract infection. Urine drug screen is positive for tricyclic and benzo however the rest is nondetected. CT of the head is reported as no acute intracranial hemorrhage, mass effect or midline shift is seen. Degenerative nonspecific white matter changes. Of concern for acute ischemic orally with MRI. Personally reviewed the CT of the head and I agree report. I also feel the patient has generalized atrophy was is appropriate for age. CT of cervical spine was reported as there is no acute fracture or dislocation evident in the cervical spine. Multilevel degenerative changes and facet arthropathy with suspected canal stenosis C5-C6 and bilateral foraminal encroachment. Possible sagittal disc protrusion or herniation C3-C4. MRI recommended 11/24/2021 Patient is seen and evaluated with daughter at bedside; patient is more awake and alert and is sitting up in bed Signs are reviewed and remained stable; lab review reveals a low sodium of 3.2 which is supplemented MRI of the brain is completed and is negative for any acute or subacute stroke; patient's presentation is deemed likely due to medication use including Haldol and higher doses of Seroquel which have been discontinued Vitamin B12 levels are low normal; patient has been placed on vitamin B-12 supplement, thousand MCG IM daily for 3 days followed by by mouth Patient condition discussed with daughter at bedside and she is requesting PT evaluation for possible placement in skilled rehab Resume the care of the patient 11/25/2021 Patient was admitted with altered mental status suspected metabolic/toxic encephalopathy secondary to medication effect with history of advanced dementia, been evaluated by neurology and orthopedic service. As per documents patient is back to baseline. Today patient is awake and calm, in the morning she follow my commands she was not agitated. She tolerates diet. She did not complain from significant pain or right shoulder pain. Patient became agitated at times in the evening, she is already on Seroquel 25 mg, she received another dose of Seroquel 25 mg, as per psychiatrist patient can take Seroquel 25-50 mg. Discontinue IV fluids Bladder scan last night 50-75 mm Objective - Vital Signs Vital signs: Vital Signs Temp 97.9 F 11/25/21 08:07 Pulse 81 11/25/21 08:07 Resp 16 11/25/21 08:07 BP 151/86 11/25/21 08:07 Pulse Ox 95 11/25/21 08:07 FiO2 Intake & Output 11/24/21 11/25/21 11/25/21 18:59 06:59 18:59 Intake Total 360 118 Output Total 500 350 650 Balance -140 -350 -532 Intake: Oral 360 118 Output: Urine 500 350 650 Other: Voiding Method Diaper Diaper Diaper Incontinent Incontinent Incontinent External Catheter External Catheter External Catheter - Exam -GENERAL: The patient is awake, confused, follows commands, got agitation at times HEENT: Pupils are round and equally reacting to light. EOMI. No scleral icterus. No conjunctival pallor. Normocephalic, atraumatic. No pharyngeal erythema. No thyromegaly. CARDIOVASCULAR: S1 and S2 present. No murmurs, rubs, or gallops. PULMONARY: Chest is clear to auscultation, no wheezing or crackles. ABDOMEN: Soft, nontender, nondistended, normoactive bowel sounds. No palpable organomegaly. MUSCULOSKELETAL: No joint swelling or deformity. EXTREMITIES: No cyanosis, clubbing, or pedal edema. NEUROLOGICAL: Gross neurological examination did not reveal any focal deficits. SKIN: No rashes. no petechiae. - Labs CBC & Chem 7: 11/25/21 07:34 11/25/21 07:34 Labs: Abnormal Lab Results - Last 24 Hours (Table) 11/24/21 11/24/21 11/24/21 Range/Units 11:41 16:32 20:01 Hgb (11.4-16.0) gm/dL Potassium (3.5-5.1) mmol/L BUN (7-17) mg/dL Creatinine (0.52-1.04) mg/dL Glucose (74-99) mg/dL POC Glucose (mg/dL) 121 H 122 H 123 H (70-110) mg/dL Hemoglobin A1c (0.0-6.0) % Magnesium (1.6-2.3) mg/dL Total Protein (6.3-8.2) g/dL Albumin (3.5-5.0) g/dL 11/25/21 11/25/21 11/25/21 Range/Units 06:21 06:23 06:43 Hgb (11.4-16.0) gm/dL Potassium (3.5-5.1) mmol/L BUN (7-17) mg/dL Creatinine (0.52-1.04) mg/dL Glucose (74-99) mg/dL POC Glucose (mg/dL) 46 L 51 L 167 H (70-110) mg/dL Hemoglobin A1c (0.0-6.0) % Magnesium (1.6-2.3) mg/dL Total Protein (6.3-8.2) g/dL Albumin (3.5-5.0) g/dL 11/25/21 11/25/21 11/25/21 Range/Units 07:34 07:34 07:34 Hgb 11.3 L (11.4-16.0) gm/dL Potassium 3.1 L (3.5-5.1) mmol/L BUN 4 L (7-17) mg/dL Creatinine 0.48 L (0.52-1.04) mg/dL Glucose 132 H (74-99) mg/dL POC Glucose (mg/dL) (70-110) mg/dL Hemoglobin A1c 6.1 H (0.0-6.0) % Magnesium 1.3 L (1.6-2.3) mg/dL Total Protein 5.6 L (6.3-8.2) g/dL Albumin 3.0 L (3.5-5.0) g/dL 11/25/21 Range/Units 11:17 Hgb (11.4-16.0) gm/dL Potassium (3.5-5.1) mmol/L BUN (7-17) mg/dL Creatinine (0.52-1.04) mg/dL Glucose (74-99) mg/dL POC Glucose (mg/dL) 165 H (70-110) mg/dL Hemoglobin A1c (0.0-6.0) % Magnesium (1.6-2.3) mg/dL Total Protein (6.3-8.2) g/dL Albumin (3.5-5.0) g/dL Assessment and Plan Assessment: Altered mental status with metabolic/toxic encephalopathy secondary to medication effect Alzheimer dementia with behavioral problems. Diabetes mellitus Low vitamin B12 C5-C6 spinal stenosis with right upper extremity/shoulder pain and no weakness Generalized weakness Plan: this is a pleasant 81 years old female with metabolic encephalopathy secondary to medication Try to limit narcotics. Continue with Seroquel 25 mg at bedtime as well as 25 mg daily as needed. Continue with Plavix Continue with vitamin B12 replacement Monitor glucose Neurology service on the case Orthopedic and psych service is already signed off Labs and medication were reviewed.. Continue same treatment. Continue with symptomatic treatment. Resume home medication. Monitor lytes and vitals. DVT and GI prophylaxis. Further recommendations as per clinical course of the patient DVT prophylaxis: Subcutaneous heparin GI Prophylaxis: Pepcid PT/OT: Pending Prognosis is guarded
[2021-11-25 20:04] LABS: Glucose,Whole Blood 220 mg/dL (70-110)
[2021-11-25] MEDS: QUEtiapine 25 MG TAB PO SCH (21:44)
[2021-11-25] MEDS: CLOPIDOGREL 75 MG TAB PO SCH (21:44)
[2021-11-25] MEDS: ATORVASTATIN 20 MG TAB PO SCH (21:44)
[2021-11-25] MEDS: LINAGLIPTIN 5 MG TABLET PO SCH (21:44)
[2021-11-25] MEDS: FAMOTIDINE 20 MG/2 ML VIAL IV SCH (21:44)
[2021-11-25] MEDS: INSULIN DETEMIR (LEVEMIR) 100 UNIT/ML SYR SQ SCH (21:45)
[2021-11-26] MEDS: CIPROFLOXACIN 0.3% OPHTH SOLN 5 ML BTL BOTH EYES SCH ×6 (00:41→20:11)
[2021-11-26 02:13] LABS: Glucose,Whole Blood 89 mg/dL (70-110)
[2021-11-26 06:06] LABS: Glucose,Whole Blood 91 mg/dL (70-110)
[2021-11-26] MEDS: INSULIN ASPART (NovoLOG) 100 UNIT/ML VIAL SQ SCH ×4 (06:19→21:44)
--- NOTE | 2021-11-26 06:40 | P.PN ---
Progress Note - Text Progress Note Date: 11/26/21 Patient seen and examined, I reviewed the note, discussed the case with the PA first hand and agree with the assessment and plan of GILA Saldana. Please see my notes below for any additional recommendations. I personally reviewed the images at this time I do not recommend any urgent spinal surgery. Continue with conservative management. If desired the patient will follow up in office with us outpatient.
[2021-11-26] MEDS: HEPARIN SODIUM,PORCINE/PF 5,000 UNIT/0.5 ML SYRINGE SQ SCH ×2 (09:39→21:42)
[2021-11-26] MEDS: CYANOCOBALAMIN 500 MCG TAB PO SCH (09:39)
[2021-11-26] MEDS: LOSARTAN 50 MG TAB PO SCH (09:40)
[2021-11-26] MEDS: MEMANTINE 5 MG TAB PO SCH ×2 (09:40→21:44)
[2021-11-26] MEDS: FAMOTIDINE 20 MG/2 ML VIAL IV SCH ×2 (09:41→21:42)
[2021-11-26] MEDS: METOPROLOL TARTRATE 25 MG TAB PO SCH ×2 (09:41→21:43)
[2021-11-26 11:49] LABS: Glucose,Whole Blood 82 mg/dL (70-110)
[2021-11-26 14:21] LABS: Appearance,Urine Turbid (Clear); Bacteria,Urine Moderate /hpf; Bilirubin,Urine Negative (Negative); Blood,Urine Large (Negative); Color,Urine Light Red; Glucose,Urine (UA) Negative (Negative); Ketones,Urine Negative (Negative); Leukocyte Esterase,Urine Large (Negative); Mucus,Urine Rare /hpf; Nitrite,Urine Positive (Negative); PH, Urine 6.5 (5.0-8.0); Protein,Urine 2+ (Negative); RBC,Urine >182 /hpf (0-5); Specific Gravity,Urine 1.016 (1.001-1.035); Urobilinogen,Urine <2.0 mg/dL (<2.0); WBC,Urine >182 /hpf (0-5)
[2021-11-26] MEDS: ACETAMINOPHEN TAB 325 MG TAB PO PRN (14:30)
[2021-11-26 15:04] LABS: Magnesium 1.5 mg/dL (1.6-2.3); Potassium 3.6 mmol/L (3.5-5.1)
[2021-11-26] MEDS ORDERED: Magnesium Replacement Protocol 1 EACH MISC MISCELLANE PRN (15:08)
[2021-11-26] MEDS ORDERED: Potassium Replacement Protocol 1 EACH MISC MISCELLANE PRN (15:09)
[2021-11-26] MEDS: MAGNESIUM SULFATE-D5W PMX 1 GM in DEXTROSE/WATER 1 100ML.BAG IVPB SCH ×2 (15:17→16:41)
[2021-11-26] MEDS ORDERED: POTASSIUM BICARBONATE/CIT AC 20 MEQ TABLET.EFF NG-TUBE SCH (16:00)
[2021-11-26 16:29] LABS: Glucose,Whole Blood 168 mg/dL (70-110)
[2021-11-26 17:27] LABS: Appearance,Urine Turbid (Clear); Bilirubin,Urine Negative (Negative); Blood,Urine Large (Negative); Color,Urine Red; Glucose,Urine (UA) Negative (Negative); Ketones,Urine Negative (Negative); Leukocyte Esterase,Urine Large (Negative); Mucus,Urine Occasional /hpf; Nitrite,Urine Positive (Negative); Protein,Urine 2+ (Negative); RBC,Urine >182 /hpf (0-5); Specific Gravity,Urine 1.019 (1.001-1.035); WBC,Urine >182 /hpf (0-5)
--- NOTE | 2021-11-26 19:35 | P.PN ---
Subjective 81-year-old female. History of present illness obtained from daughter was at the bedside. Patient is unable to provide history present illness. Patient arrived to ER via EMS. From home. Patient was brought to the ER for several days of lethargy and difficulty to arouse. She also has a new onset left facial droop. Patient has history of dementia normally resides in [place] however staying with a daughter. Daughter states that her symptoms began over the last 2-3 days. At first she was little lethargic however now she is difficult to arouse. Chemistry panel seems unremarkable except for the magnesium which is 1.1. TSH is 0.585. Urinalysis negative urinary tract infection. Urine drug screen is positive for tricyclic and benzo however the rest is nondetected. CT of the head is reported as no acute intracranial hemorrhage, mass effect or midline shift is seen. Degenerative nonspecific white matter changes. Of concern for acute ischemic orally with MRI. Personally reviewed the CT of the head and I agree report. I also feel the patient has generalized atrophy was is appropriate for age. CT of cervical spine was reported as there is no acute fracture or dislocation evident in the cervical spine. Multilevel degenerative changes and facet arthropathy with suspected canal stenosis C5-C6 and bilateral foraminal encroachment. Possible sagittal disc protrusion or herniation C3-C4. MRI recommended 11/24/2021 Patient is seen and evaluated with daughter at bedside; patient is more awake and alert and is sitting up in bed Signs are reviewed and remained stable; lab review reveals a low sodium of 3.2 which is supplemented MRI of the brain is completed and is negative for any acute or subacute stroke; patient's presentation is deemed likely due to medication use including Haldol and higher doses of Seroquel which have been discontinued Vitamin B12 levels are low normal; patient has been placed on vitamin B-12 supplement, thousand MCG IM daily for 3 days followed by by mouth Patient condition discussed with daughter at bedside and she is requesting PT evaluation for possible placement in skilled rehab Resume the care of the patient 11/25/2021 Patient was admitted with altered mental status suspected metabolic/toxic encephalopathy secondary to medication effect with history of advanced dementia, been evaluated by neurology and orthopedic service. As per documents patient is back to baseline. Today patient is awake and calm, in the morning she follow my commands she was not agitated. She tolerates diet. She did not complain from significant pain or right shoulder pain. Patient became agitated at times in the evening, she is already on Seroquel 25 mg, she received another dose of Seroquel 25 mg, as per psychiatrist patient can take Seroquel 25-50 mg. Discontinue IV fluids Bladder scan last night 50-75 mm 11/26/2021 Patient today remains confused, awake but does not follow command as appropriately as expected. She looks confused also, she is not eating much. Her urine looks dark, 2 samples of urine analysis are sent and they look infection of the urinary bladder. Patient has multiple ALLERGIES including penicillin, also she is on Seroquel which affected her QT interval, this limited the chances of antibiotic. Patient was started on aztreonam with infectious disease consult Start D5 half-normal saline at 50. Heart Levemir and continue with the nicotine for now with close monitoring of her glucose Check renal ultrasound Objective - Vital Signs Vital signs: Vital Signs Temp 98.1 F 11/26/21 16:00 Pulse 95 11/26/21 16:00 Resp 18 11/26/21 16:00 BP 129/81 11/26/21 16:00 Pulse Ox 95 11/26/21 16:00 FiO2 Intake & Output 11/26/21 11/26/21 11/27/21 06:59 18:59 06:59 Intake Total 10 480 Output Total 250 Balance -240 480 Weight 53.7 kg Intake: IV 10 Invasive Line 3 10 Oral 480 Output: Urine 250 Other: Voiding Method Diaper Diaper Incontinent Incontinent External Catheter External Catheter # Voids 3 3 # Bowel Movements 0 - Exam -GENERAL: The patient is awake, confused, follows commands, got agitation at times HEENT: Pupils are round and equally reacting to light. EOMI. No scleral icterus. No conjunctival pallor. Normocephalic, atraumatic. No pharyngeal erythema. No thyromegaly. CARDIOVASCULAR: S1 and S2 present. No murmurs, rubs, or gallops. PULMONARY: Chest is clear to auscultation, no wheezing or crackles. ABDOMEN: Soft, nontender, nondistended, normoactive bowel sounds. No palpable organomegaly. MUSCULOSKELETAL: No joint swelling or deformity. EXTREMITIES: No cyanosis, clubbing, or pedal edema. NEUROLOGICAL: Gross neurological examination did not reveal any focal deficits. SKIN: No rashes. no petechiae. - Labs CBC & Chem 7: 11/25/21 07:34 11/26/21 14:28 Labs: Abnormal Lab Results - Last 24 Hours (Table) 11/25/21 11/26/21 11/26/21 Range/Units 20:02 13:41 14:28 POC Glucose (mg/dL) 220 H (70-110) mg/dL Magnesium 1.5 L (1.6-2.3) mg/dL Urine Appearance Turbid H (Clear) Urine Protein 2+ H (Negative) Urine Blood Large H (Negative) Urine Nitrite Positive H (Negative) Ur Leukocyte Esterase Large H (Negative) Urine RBC >182 H (0-5) /hpf Urine WBC >182 H (0-5) /hpf Urine WBC Clumps Many H (None) /hpf Urine Bacteria Moderate H (None) /hpf Urine Mucus Rare H (None) /hpf 11/26/21 11/26/21 Range/Units 16:27 17:04 POC Glucose (mg/dL) 168 H (70-110) mg/dL Magnesium (1.6-2.3) mg/dL Urine Appearance Turbid H (Clear) Urine Protein 2+ H (Negative) Urine Blood Large H (Negative) Urine Nitrite Positive H (Negative) Ur Leukocyte Esterase Large H (Negative) Urine RBC >182 H (0-5) /hpf Urine WBC >182 H (0-5) /hpf Urine WBC Clumps Many H (None) /hpf Urine Bacteria (None) /hpf Urine Mucus Occasional H (None) /hpf Assessment and Plan Assessment: Acute urinary tract infection Altered mental status with metabolic/toxic encephalopathy secondary to medication effect Alzheimer dementia with behavioral problems. Diabetes mellitus Low vitamin B12 C5-C6 spinal stenosis with right upper extremity/shoulder pain and no weakness Generalized weakness Plan: this is a pleasant 81 years old female with metabolic encephalopathy secondary to medication Start aztreonam and consult ID team Try to limit narcotics. Continue with Seroquel 25 mg at bedtime as well as 25 mg daily as needed. Continue with Plavix Continue with vitamin B12 replacement Monitor glucose Neurology service on the case Orthopedic and psych service is already signed off Labs and medication were reviewed.. Continue same treatment. Continue with symptomatic treatment. Resume home medication. Monitor lytes and vitals. DVT and GI prophylaxis. Further recommendations as per clinical course of the patient DVT prophylaxis: Subcutaneous heparin GI Prophylaxis: Pepcid PT/OT: Pending Prognosis is guarded
[2021-11-26] MEDS: DEXTROSE 5%-0.45% NACL 1,000 ML IV SCH (20:11)
[2021-11-26 20:48] LABS: Glucose,Whole Blood 163 mg/dL (70-110)
--- NOTE | 2021-11-26 21:37 | US ---
EXAMINATION TYPE: US renals and bladder DATE OF EXAM: 11/26/2021 COMPARISON: NONE CLINICAL HISTORY: uti. Limited due to patient being uncooperative and not letting me scan left side. EXAM MEASUREMENTS: Right Kidney: 9.8 x 4.0 x 5.4 cm Left Kidney: Not vis Right Kidney: Mild hydro seen Left Kidney: Not vis Bladder: WNL Bilateral Jets seen: Yes Left ovarian cyst measuring 3.1 x 3.0 x 1.9 cm IMPRESSION: 1. Mild right hydronephrosis. 2. Nonvisualization left kidney.
[2021-11-26] MEDS: CLOPIDOGREL 75 MG TAB PO SCH (21:43)
[2021-11-26] MEDS: QUEtiapine 25 MG TAB PO SCH (21:43)
[2021-11-26] MEDS: LINAGLIPTIN 5 MG TABLET PO SCH (21:44)
[2021-11-26] MEDS: ATORVASTATIN 20 MG TAB PO SCH (21:44)
[2021-11-26] MEDS: AZTREONAM 1 GM in SODIUM CHLORIDE 0.9% 50 ML IVPB SCH (21:45)
[2021-11-27] MEDS: CIPROFLOXACIN 0.3% OPHTH SOLN 5 ML BTL BOTH EYES SCH ×6 (00:25→21:41)
[2021-11-27] MEDS: AZTREONAM 1 GM in SODIUM CHLORIDE 0.9% 50 ML IVPB SCH ×3 (04:08→21:41)
[2021-11-27 06:18] LABS: Glucose,Whole Blood 122 mg/dL (70-110)
[2021-11-27] MEDS: INSULIN ASPART (NovoLOG) 100 UNIT/ML VIAL SQ SCH ×4 (08:03→21:41)
[2021-11-27 09:34] LABS: Basophils % (A) 1 %; Eosinophils # (A) 0.1 k/uL (0-0.7); Eosinophils % (A) 2 %; HCT 36.4 % (34.0-46.0); HGB 11.3 gm/dL (11.4-16.0); Lymphocytes # (A) 1.5 k/uL (1.0-4.8); Lymphocytes % (A) 20 %; MCH 28.9 pg (25.0-35.0); MCHC 31.1 g/dL (31.0-37.0); MCV 92.9 fL (80.0-100.0); Mean Platelet Volume 7.4; Monocytes # (A) 0.3 k/uL (0-1.0); Monocytes % (A) 4 %; Neutrophils # (A) 5.1 k/uL (1.3-7.7); Neutrophils % (A) 72 %; Platelet Count 280 k/uL (150-450); RBC 3.91 m/uL (3.80-5.40); RDW 13.9 % (11.5-15.5); WBC 7.2 k/uL (3.8-10.6)
[2021-11-27 09:52] LABS: ALT 18 U/L (4-34); AST 21 U/L (14-36); African American GFR (CKD) >90 (>60 ml/min/1.73 sqM); Alkaline Phosphatase 74 U/L (38-126); Anion Gap 10 mmol/L; Bilirubin,Unconjugated 0.8 mg/dL (0.0-1.1); Blood Urea Nitrogen 8 mg/dL (7-17); Calcium 8.8 mg/dL (8.4-10.2); Carbon Dioxide 25 mmol/L (22-30); Chloride 104 mmol/L (98-107); Glucose 191 mg/dL (74-99); Magnesium 1.6 mg/dL (1.6-2.3); Non-African American GFR(CKD) 85 (>60 ml/min/1.73 sqM); Potassium 3.6 mmol/L (3.5-5.1); Sodium 139 mmol/L (137-145); Total Bilirubin 0.8 mg/dL (0.2-1.3); Total Protein 5.6 g/dL (6.3-8.2)
[2021-11-27] MEDS: MEMANTINE 5 MG TAB PO SCH ×2 (10:04→21:40)
[2021-11-27] MEDS: CYANOCOBALAMIN 500 MCG TAB PO SCH (10:04)
[2021-11-27] MEDS: METOPROLOL TARTRATE 25 MG TAB PO SCH ×2 (10:05→21:43)
[2021-11-27] MEDS: FAMOTIDINE 20 MG/2 ML VIAL IV SCH ×2 (10:05→21:42)
[2021-11-27] MEDS: LOSARTAN 50 MG TAB PO SCH (10:05)
[2021-11-27] MEDS: HEPARIN SODIUM,PORCINE/PF 5,000 UNIT/0.5 ML SYRINGE SQ SCH ×2 (10:05→21:42)
[2021-11-27 11:32] LABS: Glucose,Whole Blood 189 mg/dL (70-110)
[2021-11-27 16:47] LABS: Glucose,Whole Blood 204 mg/dL (70-110)
[2021-11-27] MEDS: DEXTROSE 5%-0.45% NACL 1,000 ML IV SCH (17:29)
--- NOTE | 2021-11-27 19:29 | P.PN ---
Subjective 81-year-old female. History of present illness obtained from daughter was at the bedside. Patient is unable to provide history present illness. Patient arrived to ER via EMS. From home. Patient was brought to the ER for several days of lethargy and difficulty to arouse. She also has a new onset left facial droop. Patient has history of dementia normally resides in [place] however staying with a daughter. Daughter states that her symptoms began over the last 2-3 days. At first she was little lethargic however now she is difficult to arouse. Chemistry panel seems unremarkable except for the magnesium which is 1.1. TSH is 0.585. Urinalysis negative urinary tract infection. Urine drug screen is positive for tricyclic and benzo however the rest is nondetected. CT of the head is reported as no acute intracranial hemorrhage, mass effect or midline shift is seen. Degenerative nonspecific white matter changes. Of concern for acute ischemic orally with MRI. Personally reviewed the CT of the head and I agree report. I also feel the patient has generalized atrophy was is appropriate for age. CT of cervical spine was reported as there is no acute fracture or dislocation evident in the cervical spine. Multilevel degenerative changes and facet arthropathy with suspected canal stenosis C5-C6 and bilateral foraminal encroachment. Possible sagittal disc protrusion or herniation C3-C4. MRI recommended 11/24/2021 Patient is seen and evaluated with daughter at bedside; patient is more awake and alert and is sitting up in bed Signs are reviewed and remained stable; lab review reveals a low sodium of 3.2 which is supplemented MRI of the brain is completed and is negative for any acute or subacute stroke; patient's presentation is deemed likely due to medication use including Haldol and higher doses of Seroquel which have been discontinued Vitamin B12 levels are low normal; patient has been placed on vitamin B-12 supplement, thousand MCG IM daily for 3 days followed by by mouth Patient condition discussed with daughter at bedside and she is requesting PT evaluation for possible placement in skilled rehab Resume the care of the patient 11/25/2021 Patient was admitted with altered mental status suspected metabolic/toxic encephalopathy secondary to medication effect with history of advanced dementia, been evaluated by neurology and orthopedic service. As per documents patient is back to baseline. Today patient is awake and calm, in the morning she follow my commands she was not agitated. She tolerates diet. She did not complain from significant pain or right shoulder pain. Patient became agitated at times in the evening, she is already on Seroquel 25 mg, she received another dose of Seroquel 25 mg, as per psychiatrist patient can take Seroquel 25-50 mg. Discontinue IV fluids Bladder scan last night 50-75 mm 11/26/2021 Patient today remains confused, awake but does not follow command as appropriately as expected. She looks confused also, she is not eating much. Her urine looks dark, 2 samples of urine analysis are sent and they look infection of the urinary bladder. Patient has multiple ALLERGIES including penicillin, also she is on Seroquel which affected her QT interval, this limited the chances of antibiotic. Patient was started on aztreonam with infectious disease consult Start D5 half-normal saline at 50. Heart Levemir and continue with the nicotine for now with close monitoring of her glucose Check renal ultrasound 11/27/2021 Patient mentation improved and looks like patient is back to baseline, patient space and a Sinhala but when she is reminded to talk Moldovan she can answer questions appropriately most of the time. Also she follows commands. She still has some mild basal confusion or cognitive problem most likely related to her dementia. She has memory problem as well. But significantly improved after we stopped her Lantus, most likely patient had metabolic encephalopathy secondary to hypoglycemia Glucose was a drop in the 60s on 11/25, and the 90s and 80s yesterday but thus improved now, the minimal glucose reading is 122. Does not look patient has UTI, she doesn't have significant urinary symptoms, no fever or leukocytosis. proCalcitonin is negative. She skipped on his aztreonam and urine culture is negative. Renal ultrasound showing mild right hydronephrosis and nonvisualization of the left kidney. Patient had checked bladder scan and she has more than 300 and straight cath, and then rechecked again it was 500 but after void it went down to 75 mL, it looks like she has intermittent retention and because of her memory problem there is delay in emptying her bladder. Therefore we will start Flomax tonight. Also patient might benefit from urology evaluation as an outpatient Objective - Vital Signs Vital signs: Vital Signs Temp 97.4 F L 11/27/21 08:00 Pulse 89 11/27/21 08:00 Resp 18 11/27/21 08:00 BP 144/82 11/27/21 08:00 Pulse Ox 99 11/27/21 08:00 FiO2 Intake & Output 11/26/21 11/27/21 11/27/21 18:59 06:59 18:59 Intake Total 480 Output Total 250 Balance 480 -250 Weight 53.7 kg Intake: Oral 480 Output: Urine 250 Other: Voiding Method Diaper Diaper Diaper Incontinent Incontinent Incontinent External Catheter External Catheter External Catheter # Voids 3 1 - Exam -GENERAL: The patient is awake, confused, follows commands, got agitation at times HEENT: Pupils are round and equally reacting to light. EOMI. No scleral icterus. No conjunctival pallor. Normocephalic, atraumatic. No pharyngeal erythema. No thyromegaly. CARDIOVASCULAR: S1 and S2 present. No murmurs, rubs, or gallops. PULMONARY: Chest is clear to auscultation, no wheezing or crackles. ABDOMEN: Soft, nontender, nondistended, normoactive bowel sounds. No palpable organomegaly. MUSCULOSKELETAL: No joint swelling or deformity. EXTREMITIES: No cyanosis, clubbing, or pedal edema. NEUROLOGICAL: Gross neurological examination did not reveal any focal deficits. SKIN: No rashes. no petechiae. - Labs CBC & Chem 7: 11/27/21 08:50 11/27/21 08:50 Labs: Abnormal Lab Results - Last 24 Hours (Table) 11/26/21 11/26/21 11/26/21 Range/Units 14:28 16:27 17:04 Hgb (11.4-16.0) gm/dL Glucose (74-99) mg/dL POC Glucose (mg/dL) 168 H (70-110) mg/dL Magnesium 1.5 L (1.6-2.3) mg/dL Total Protein (6.3-8.2) g/dL Albumin (3.5-5.0) g/dL Urine Appearance Turbid H (Clear) Urine Protein 2+ H (Negative) Urine Blood Large H (Negative) Urine Nitrite Positive H (Negative) Ur Leukocyte Esterase Large H (Negative) Urine RBC >182 H (0-5) /hpf Urine WBC >182 H (0-5) /hpf Urine WBC Clumps Many H (None) /hpf Urine Mucus Occasional H (None) /hpf 11/26/21 11/27/21 11/27/21 Range/Units 20:46 06:16 08:50 Hgb (11.4-16.0) gm/dL Glucose 191 H (74-99) mg/dL POC Glucose (mg/dL) 163 H 122 H (70-110) mg/dL Magnesium (1.6-2.3) mg/dL Total Protein 5.6 L (6.3-8.2) g/dL Albumin 3.0 L (3.5-5.0) g/dL Urine Appearance (Clear) Urine Protein (Negative) Urine Blood (Negative) Urine Nitrite (Negative) Ur Leukocyte Esterase (Negative) Urine RBC (0-5) /hpf Urine WBC (0-5) /hpf Urine WBC Clumps (None) /hpf Urine Mucus (None) /hpf 11/27/21 11/27/21 Range/Units 08:50 11:30 Hgb 11.3 L (11.4-16.0) gm/dL Glucose (74-99) mg/dL POC Glucose (mg/dL) 189 H (70-110) mg/dL Magnesium (1.6-2.3) mg/dL Total Protein (6.3-8.2) g/dL Albumin (3.5-5.0) g/dL Urine Appearance (Clear) Urine Protein (Negative) Urine Blood (Negative) Urine Nitrite (Negative) Ur Leukocyte Esterase (Negative) Urine RBC (0-5) /hpf Urine WBC (0-5) /hpf Urine WBC Clumps (None) /hpf Urine Mucus (None) /hpf Microbiology - Last 24 Hours (Table) 11/26/21 17:04 Urine Culture - Preliminary Urine,Voided Assessment and Plan Assessment: Metabolic and toxic encephalopathy, multifactorial for example due to medication effect, low vitamin B12, hyperglycemia, improved Hypoglycemia, improved related to her diabetes mellitus Mild urinary retention with right hydronephrosis, with normal kidney function. Possible Acute urinary tract infection, felt less likely. Pending urine culture Altered mental status with metabolic/toxic encephalopathy secondary to medication effect Alzheimer dementia with behavioral problems. Diabetes mellitus with hyperglycemia Low vitamin B12 C5-C6 spinal stenosis with right upper extremity/shoulder pain and no weakness Generalized weakness Plan: this is a pleasant 81 years old female with metabolic encephalopathy secondary to medication Start aztreonam and consult ID team . Follow-up urine culture Start Flomax and refer patient to urology as an outpatient Continue with linagliptin and diabetic diet. Continue with insulin sliding scale. Hemoglobin A1c is 611% Try to limit narcotics. Continue with Seroquel 25 mg at bedtime as well as 25 mg daily as needed. Continue with Plavix Continue with vitamin B12 replacement Monitor glucose Neurology service on the case Orthopedic and psych service is already signed off Labs and medication were reviewed.. Continue same treatment. Continue with symptomatic treatment. Resume home medication. Monitor lytes and vitals. DVT and GI prophylaxis. Further recommendations as per clinical course of the patient DVT prophylaxis: Subcutaneous heparin GI Prophylaxis: Pepcid PT/OT: Patient may benefit from DARCY Long-term prognosis still guarded Possible discharge in 24-48 hour
[2021-11-27 20:27] LABS: Glucose,Whole Blood 175 mg/dL (70-110)
[2021-11-27] MEDS: CLOPIDOGREL 75 MG TAB PO SCH (21:40)
[2021-11-27] MEDS: QUEtiapine 25 MG TAB PO SCH (21:40)
[2021-11-27] MEDS: ATORVASTATIN 20 MG TAB PO SCH (21:40)
[2021-11-27] MEDS: TAMSULOSIN 0.4 MG CAP.ER.24H PO SCH ×2 (21:43→22:02)
--- NOTE | 2021-11-27 22:03 | P.CONS ---
History of Present Illness - Reason for Consult Consult date: 11/27/21 UTI Requesting physician: Robert E Sheet - Chief Complaint Weakness few days - History of Present Illness Patient is a 81-year-old female of [place] descent presenting to the hospital 5 days ago on 11/22/2021 for evaluation of lethargy according to the daughter who provided most of the history to the ER physician patient was noticed to be lethargic for several days and difficult to arouse and apparently was noted to have new onset left-sided facial droop with the symptom the patient has been evaluated on arrival to the ER patient did have a CT of the head and cervical spine that was negative for any bleed or acute stroke subsequently patient did have an MRI of the brain completed no evidence of intracranial mass nonspecific white matter changes patient has been afebrile throughout her hospital stay patient did have a normal white count low enzymes has been normal kidney function was normal patient did have a positive UA with a large leukocyte esterase moderate bacteria patient did have a normal urine admission apparently she did have a catheter urine culture has been obtained patient did have a penicillin allergy start a clear type of reaction she has and is very hard to get information because of language barrier patient was started on aztreonam and infectious disease was consulted for further management of antibiotic therapy most information has been obtained from review the chart talking nursing staff as the patient has not evaluated good historian Review of Systems Positive point has been mentioned in the HPI rest of the systems are negative Past Medical History Past Medical History: Dementia, Diabetes Mellitus, GERD/Reflux, Hypertension Additional Past Medical History / Comment(s): IDDM type II, neuropathy bilateral hand/feet, diverticular disease, past gastric ulcer with surgical repair, benign colon polyps, arthritis R arm/wrist. History of Any Multi-Drug Resistant Organisms: None Reported Past Surgical History: Hysterectomy Additional Past Surgical History / Comment(s): Laparotomy for stomach ulcer repair, colonoscopies, bilateral cataract removals/lens implants. Past Anesthesia/Blood Transfusion Reactions: No Reported Reaction Additional Past Anesthesia/Blood Transfusion Reaction / Comm: Pt has received blood in past without reaction. Past Psychological History: No Psychological Hx Reported Additional Psychological History / Comment(s): Pt resides in [place] with her son, Roger, who is her caregiver. She is her staying with her morgan and son i n law for [employer] over a week. Pt has dementia. 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 She now only speaks Korean. She ambulates with a wheeled walker. She is continent of urine and stool. She normally can feed herself. Family manages her medications. She can swallow pills but family call her pills her vitamins or she will get suspicious and not take them. Family wash and dress patient. Smoking Status: Never smoker Past Alcohol Use History: Rare Past Drug Use History: None Reported - Past Family History Father Family Medical History: No Reported History Additional Family Medical History / Comment(s): Father lived to be 81 yrs old. Mother Family Medical History: No Reported History Additional Family Medical History / Comment(s): Pt ls mother is 102 years old. Medications and Allergies Home Medications Medication Instructions Recorded Confirmed Type Insulin Glargine,Hum.rec.anlog 7 units SQ HS 11/22/21 11/22/21 History [Lantus Solostar Pen] Losartan Potassium [Cozaar] 100 mg PO DAILY 11/22/21 11/22/21 History Memantine HCl [Memantine HCl ER] 21 mg PO HS 11/22/21 11/22/21 History Metoprolol Tartrate [Lopressor] 25 mg PO BID 11/22/21 11/22/21 History Potassium Gluconate [Potassium 99 mg PO DAILY 11/22/21 11/22/21 History Gluconate ER] sitaGLIPtin [Januvia] 100 mg PO HS 11/22/21 11/22/21 History Acetaminophen Tab [Tylenol] 650 mg PO Q6HR PRN tab 11/26/21 Rx Atorvastatin [Lipitor] 20 mg PO HS tab 11/26/21 Rx Ciprofloxacin Ophth Soln [Ciloxan 2 drops BOTH EYES Q4HR ml 11/26/21 Rx 0.3% Ophth Soln] Clopidogrel [Plavix] 75 mg PO HS tab 11/26/21 Rx Cyanocobalamin [Vitamin B-12] 1,000 mcg PO DAILY tab 11/26/21 Rx QUEtiapine FUMARATE [SEROquel] 25 mg PO DAILY PRN #10 tablet 11/26/21 Rx QUEtiapine FUMARATE [SEROquel] 25 mg PO HS #30 tab 11/26/21 Rx Allergies Allergy/AdvReac Type Severity Reaction Status Date / Time codeine Allergy Itching Verified 11/25/21 17:24 NSAIDS (Non-Steroidal Allergy Anaphylaxis Verified 11/25/21 17:24 Anti-Inflamma Penicillins Allergy Anaphylaxis Verified 11/22/21 13:51 Physical Exam Vitals: Vital Signs Temp Pulse Resp BP BP Pulse Ox 11/27/21 04:36 76 16 142/75 94 L 11/27/21 00:09 98.0 F 73 16 148/78 97 11/26/21 20:40 99.0 F 94 16 158/89 97 11/26/21 16:00 98.1 F 95 18 129/81 95 11/26/21 11:35 98.8 F 85 18 129/82 99 Intake and Output 11/26/21 11/27/21 11/27/21 22:59 06:59 14:59 Intake Total 360 Balance 360 Intake: Oral 360 Other: Voiding Method Diaper Diaper Incontinent Incontinent External Catheter External Catheter # Voids 1 1 GENERAL DESCRIPTION: Elderly female lying in bed, no distress. No tachypnea or accessory muscle of respiration use. HEENT: Shows Pallor , no scleral icterus. Oral mucous membrane is dry. No pharyngeal erythema or thrush NECK: Trachea central, no thyromegaly. LUNGS: Unlabored breathing. Decreased present at the base. No wheeze or crackle. HEART: S1, S2, regular rate and rhythm. No loud murmur ABDOMEN: Soft, no tenderness , guarding or rigidity, no organomegaly EXTREMITIES: No edema of feet. SKIN: No rash, no masses palpable. NEUROLOGICAL: The patient is awake, alert, oriented x3, mood and affect normal. Results CBC & Chem 7: 11/29/21 10:41 11/29/21 10:41 Labs: Abnormal Lab Results - Last 24 Hours (Table) 11/26/21 11/26/21 11/26/21 Range/Units 13:41 14:28 16:27 POC Glucose (mg/dL) 168 H (70-110) mg/dL Magnesium 1.5 L (1.6-2.3) mg/dL Urine Appearance Turbid H (Clear) Urine Protein 2+ H (Negative) Urine Blood Large H (Negative) Urine Nitrite Positive H (Negative) Ur Leukocyte Esterase Large H (Negative) Urine RBC >182 H (0-5) /hpf Urine WBC >182 H (0-5) /hpf Urine WBC Clumps Many H (None) /hpf Urine Bacteria Moderate H (None) /hpf Urine Mucus Rare H (None) /hpf 11/26/21 11/26/21 11/27/21 Range/Units 17:04 20:46 06:16 POC Glucose (mg/dL) 163 H 122 H (70-110) mg/dL Magnesium (1.6-2.3) mg/dL Urine Appearance Turbid H (Clear) Urine Protein 2+ H (Negative) Urine Blood Large H (Negative) Urine Nitrite Positive H (Negative) Ur Leukocyte Esterase Large H (Negative) Urine RBC >182 H (0-5) /hpf Urine WBC >182 H (0-5) /hpf Urine WBC Clumps Many H (None) /hpf Urine Bacteria (None) /hpf Urine Mucus Occasional H (None) /hpf Microbiology - Last 24 Hours (Table) 11/26/21 17:04 Urine Culture - Preliminary Urine,Voided Assessment and Plan (1) Urinary tract infection Current Visit: Yes Status: Acute Code(s): N39.0 - URINARY TRACT INFECTION, SITE NOT SPECIFIED SNOMED Code(s): 89788199 Plan: 1patient with significantly positive UA in this patient initial presentation to the hospital with mental status changes and initial concern for CVA however the patient did have work-up including CT and MRI that has been negative patient did have a normal UA on admission and subsequently was significantly positive UA with concern for possible catheter associated UTI. 2penicillin allergy that would limit the number of antibiotics safe to use. 3continue Azactam to 1 g every 8 hours evaluated for the urine culture to finalize. We will follow on clinical condition and cultures to further adjust medication if needed Thank you for this consultation will follow this patient along with you Time with Patient: Greater than 30
[2021-11-28] MEDS: CIPROFLOXACIN 0.3% OPHTH SOLN 5 ML BTL BOTH EYES SCH ×6 (01:13→21:27)
[2021-11-28] MEDS: POTASSIUM CHLORIDE 10 MEQ in WATER FOR INJECTION 1 100ML.BAG IVPB SCH ×2 (01:18→01:19)
[2021-11-28] MEDS: POTASSIUM BICARBONATE/CIT AC 20 MEQ TABLET.EFF NG-TUBE SCH (01:18)
[2021-11-28] MEDS: AZTREONAM 1 GM in SODIUM CHLORIDE 0.9% 50 ML IVPB SCH ×3 (04:13→21:20)
[2021-11-28 06:06] LABS: Glucose,Whole Blood 124 mg/dL (70-110)
[2021-11-28] MEDS: INSULIN ASPART (NovoLOG) 100 UNIT/ML VIAL SQ SCH ×4 (06:09→21:32)
[2021-11-28] MEDS: MEMANTINE 5 MG TAB PO SCH ×2 (10:03→21:36)
[2021-11-28] MEDS: LOSARTAN 50 MG TAB PO SCH (10:03)
[2021-11-28] MEDS: HEPARIN SODIUM,PORCINE/PF 5,000 UNIT/0.5 ML SYRINGE SQ SCH ×2 (10:03→21:34)
[2021-11-28] MEDS: CYANOCOBALAMIN 500 MCG TAB PO SCH (10:03)
[2021-11-28] MEDS: METOPROLOL TARTRATE 25 MG TAB PO SCH ×2 (10:03→21:20)
[2021-11-28] MEDS: FAMOTIDINE 20 MG/2 ML VIAL IV SCH ×2 (10:04→21:36)
--- NOTE | 2021-11-28 11:37 | P.PN ---
Subjective 81-year-old female. History of present illness obtained from daughter was at the bedside. Patient is unable to provide history present illness. Patient arrived to ER via EMS. From home. Patient was brought to the ER for several days of lethargy and difficulty to arouse. She also has a new onset left facial droop. Patient has history of dementia normally resides in [place] however staying with a daughter. Daughter states that her symptoms began over the last 2-3 days. At first she was little lethargic however now she is difficult to arouse. Chemistry panel seems unremarkable except for the magnesium which is 1.1. TSH is 0.585. Urinalysis negative urinary tract infection. Urine drug screen is positive for tricyclic and benzo however the rest is nondetected. CT of the head is reported as no acute intracranial hemorrhage, mass effect or midline shift is seen. Degenerative nonspecific white matter changes. Of concern for acute ischemic orally with MRI. Personally reviewed the CT of the head and I agree report. I also feel the patient has generalized atrophy was is appropriate for age. CT of cervical spine was reported as there is no acute fracture or dislocation evident in the cervical spine. Multilevel degenerative changes and facet arthropathy with suspected canal stenosis C5-C6 and bilateral foraminal encroachment. Possible sagittal disc protrusion or herniation C3-C4. MRI recommended 11/24/2021 Patient is seen and evaluated with daughter at bedside; patient is more awake and alert and is sitting up in bed Signs are reviewed and remained stable; lab review reveals a low sodium of 3.2 which is supplemented MRI of the brain is completed and is negative for any acute or subacute stroke; patient's presentation is deemed likely due to medication use including Haldol and higher doses of Seroquel which have been discontinued Vitamin B12 levels are low normal; patient has been placed on vitamin B-12 supplement, thousand MCG IM daily for 3 days followed by by mouth Patient condition discussed with daughter at bedside and she is requesting PT evaluation for possible placement in skilled rehab Resume the care of the patient 11/25/2021 Patient was admitted with altered mental status suspected metabolic/toxic encephalopathy secondary to medication effect with history of advanced dementia, been evaluated by neurology and orthopedic service. As per documents patient is back to baseline. Today patient is awake and calm, in the morning she follow my commands she was not agitated. She tolerates diet. She did not complain from significant pain or right shoulder pain. Patient became agitated at times in the evening, she is already on Seroquel 25 mg, she received another dose of Seroquel 25 mg, as per psychiatrist patient can take Seroquel 25-50 mg. Discontinue IV fluids Bladder scan last night 50-75 mm 11/26/2021 Patient today remains confused, awake but does not follow command as appropriately as expected. She looks confused also, she is not eating much. Her urine looks dark, 2 samples of urine analysis are sent and they look infection of the urinary bladder. Patient has multiple ALLERGIES including penicillin, also she is on Seroquel which affected her QT interval, this limited the chances of antibiotic. Patient was started on aztreonam with infectious disease consult Start D5 half-normal saline at 50. Heart Levemir and continue with the nicotine for now with close monitoring of her glucose Check renal ultrasound 11/27/2021 Patient mentation improved and looks like patient is back to baseline, patient space and a Macedonian but when she is reminded to talk [place]ican she can answer questions appropriately most of the time. Also she follows commands. She still has some mild basal confusion or cognitive problem most likely related to her dementia. She has memory problem as well. But significantly improved after we stopped her Lantus, most likely patient had metabolic encephalopathy secondary to hypoglycemia Glucose was a drop in the 60s on 11/25, and the 90s and 80s yesterday but thus improved now, the minimal glucose reading is 122. Does not look patient has UTI, she doesn't have significant urinary symptoms, no fever or leukocytosis. proCalcitonin is negative. She skipped on his aztreonam and urine culture is negative. Renal ultrasound showing mild right hydronephrosis and nonvisualization of the left kidney. Patient had checked bladder scan and she has more than 300 and straight cath, and then rechecked again it was 500 but after void it went down to 75 mL, it looks like she has intermittent retention and because of her memory problem there is delay in emptying her bladder. Therefore we will start Flomax tonight. Also patient might benefit from urology evaluation as an outpatient 11/28/2021 patient mentation improving slowly and gradually, as per staff patient may be at her basic mentation, we going to check with the family. Other than that she is doing well able to tolerate diet 50-75%. Ultrasound is today showing evidence of mild right hydronephrosis and looks like patient have some degree of retention so we will keep urine catheter in upon discharge. She remains on aztreonam and urine culture final results are still pending. Possible discharge in 24-48 hours if she keeps improvement. Patient will need some ECF for rehab upon discharge recommended for her No IV fluids today. Objective - Vital Signs Vital signs: Vital Signs Temp 98.3 F 11/28/21 08:00 Pulse 90 11/28/21 08:00 Resp 16 11/28/21 08:00 BP 164/94 11/28/21 08:00 Pulse Ox 97 11/28/21 08:00 FiO2 Intake & Output 11/27/21 11/28/21 11/28/21 18:59 06:59 18:59 Output Total 250 1425 Balance -250 -1425 Output: Urine 250 1375 Straight 550 Post Void Residual 50 Other: Voiding Method Diaper External Catheter Incontinent External Catheter - Exam -GENERAL: The patient is awake, confused, follows commands, got agitation at times HEENT: Pupils are round and equally reacting to light. EOMI. No scleral icterus. No conjunctival pallor. Normocephalic, atraumatic. No pharyngeal erythema. No thyromegaly. CARDIOVASCULAR: S1 and S2 present. No murmurs, rubs, or gallops. PULMONARY: Chest is clear to auscultation, no wheezing or crackles. ABDOMEN: Soft, nontender, nondistended, normoactive bowel sounds. No palpable organomegaly. MUSCULOSKELETAL: No joint swelling or deformity. EXTREMITIES: No cyanosis, clubbing, or pedal edema. NEUROLOGICAL: Gross neurological examination did not reveal any focal deficits. SKIN: No rashes. no petechiae. - Labs CBC & Chem 7: 11/27/21 08:50 11/27/21 08:50 Labs: Abnormal Lab Results - Last 24 Hours (Table) 11/27/21 11/27/21 11/28/21 Range/Units 16:45 20:26 06:05 POC Glucose (mg/dL) 204 H 175 H 124 H (70-110) mg/dL Assessment and Plan Assessment: Metabolic and toxic encephalopathy, multifactorial for example due to medication effect, low vitamin B12, hyperglycemia, improved Hypoglycemia, improved related to her diabetes mellitus Mild urinary retention with right hydronephrosis, with normal kidney function. Possible Acute urinary tract infection, felt less likely. Pending urine culture Altered mental status with metabolic/toxic encephalopathy secondary to medication effect Alzheimer dementia with behavioral problems. Diabetes mellitus with hyperglycemia Low vitamin B12 C5-C6 spinal stenosis with right upper extremity/shoulder pain and no weakness Generalized weakness Plan: this is a pleasant 81 years old female with metabolic encephalopathy secondary to medication Start aztreonam and consult ID team . Follow-up urine culture Start Flomax and refer patient to urology as an outpatient Continue with linagliptin and diabetic diet. Continue with insulin sliding scale. Hemoglobin A1c is 611% Try to limit narcotics. Continue with Seroquel 25 mg at bedtime as well as 25 mg daily as needed. Continue with Plavix Continue with vitamin B12 replacement Monitor glucose Neurology service on the case Orthopedic and psych service is already signed off Labs and medication were reviewed.. Continue same treatment. Continue with symptomatic treatment. Resume home medication. Monitor lytes and vitals. DVT and GI prophylaxis. Further recommendations as per clinical course of the patient DVT prophylaxis: Subcutaneous heparin GI Prophylaxis: Pepcid PT/OT: Patient may benefit from DARCY Long-term prognosis still guarded Possible discharge in 24-48 hour
[2021-11-28 11:54] LABS: Glucose,Whole Blood 150 mg/dL (70-110)
[2021-11-28] MEDS: ACETAMINOPHEN TAB 325 MG TAB PO PRN (15:01)
[2021-11-28 16:56] LABS: Glucose,Whole Blood 193 mg/dL (70-110)
[2021-11-28] MEDS: TAMSULOSIN 0.4 MG CAP.ER.24H PO SCH (17:37)
[2021-11-28 20:27] LABS: Glucose,Whole Blood 170 mg/dL (70-110)
[2021-11-28] MEDS: CLOPIDOGREL 75 MG TAB PO SCH (21:20)
[2021-11-28] MEDS: QUEtiapine 25 MG TAB PO SCH (21:20)
[2021-11-28] MEDS: ATORVASTATIN 20 MG TAB PO SCH (21:35)
[2021-11-29] MEDS: CIPROFLOXACIN 0.3% OPHTH SOLN 5 ML BTL BOTH EYES SCH ×7 (00:04→23:43)
[2021-11-29] MEDS: AZTREONAM 1 GM in SODIUM CHLORIDE 0.9% 50 ML IVPB SCH ×3 (03:55→22:18)
[2021-11-29 06:07] LABS: Glucose,Whole Blood 124 mg/dL (70-110)
[2021-11-29] MEDS: INSULIN ASPART (NovoLOG) 100 UNIT/ML VIAL SQ SCH ×5 (06:16→22:20)
--- NOTE | 2021-11-29 10:02 | P.PN ---
Subjective 81-year-old female. History of present illness obtained from daughter was at the bedside. Patient is unable to provide history present illness. Patient arrived to ER via EMS. From home. Patient was brought to the ER for several days of lethargy and difficulty to arouse. She also has a new onset left facial droop. Patient has history of dementia normally resides in [place] however staying with a daughter. Daughter states that her symptoms began over the last 2-3 days. At first she was little lethargic however now she is difficult to arouse. Chemistry panel seems unremarkable except for the magnesium which is 1.1. TSH is 0.585. Urinalysis negative urinary tract infection. Urine drug screen is positive for tricyclic and benzo however the rest is nondetected. CT of the head is reported as no acute intracranial hemorrhage, mass effect or midline shift is seen. Degenerative nonspecific white matter changes. Of concern for acute ischemic orally with MRI. Personally reviewed the CT of the head and I agree report. I also feel the patient has generalized atrophy was is appropriate for age. CT of cervical spine was reported as there is no acute fracture or dislocation evident in the cervical spine. Multilevel degenerative changes and facet arthropathy with suspected canal stenosis C5-C6 and bilateral foraminal encroachment. Possible sagittal disc protrusion or herniation C3-C4. MRI recommended 11/24/2021 Patient is seen and evaluated with daughter at bedside; patient is more awake and alert and is sitting up in bed Signs are reviewed and remained stable; lab review reveals a low sodium of 3.2 which is supplemented MRI of the brain is completed and is negative for any acute or subacute stroke; patient's presentation is deemed likely due to medication use including Haldol and higher doses of Seroquel which have been discontinued Vitamin B12 levels are low normal; patient has been placed on vitamin B-12 supplement, thousand MCG IM daily for 3 days followed by by mouth Patient condition discussed with daughter at bedside and she is requesting PT evaluation for possible placement in skilled rehab Resume the care of the patient 11/25/2021 Patient was admitted with altered mental status suspected metabolic/toxic encephalopathy secondary to medication effect with history of advanced dementia, been evaluated by neurology and orthopedic service. As per documents patient is back to baseline. Today patient is awake and calm, in the morning she follow my commands she was not agitated. She tolerates diet. She did not complain from significant pain or right shoulder pain. Patient became agitated at times in the evening, she is already on Seroquel 25 mg, she received another dose of Seroquel 25 mg, as per psychiatrist patient can take Seroquel 25-50 mg. Discontinue IV fluids Bladder scan last night 50-75 mm 11/26/2021 Patient today remains confused, awake but does not follow command as appropriately as expected. She looks confused also, she is not eating much. Her urine looks dark, 2 samples of urine analysis are sent and they look infection of the urinary bladder. Patient has multiple ALLERGIES including penicillin, also she is on Seroquel which affected her QT interval, this limited the chances of antibiotic. Patient was started on aztreonam with infectious disease consult Start D5 half-normal saline at 50. Heart Levemir and continue with the nicotine for now with close monitoring of her glucose Check renal ultrasound 11/27/2021 Patient mentation improved and looks like patient is back to baseline, patient space and a Upper Sorbian but when she is reminded to talk [place] she can answer questions appropriately most of the time. Also she follows commands. She still has some mild basal confusion or cognitive problem most likely related to her dementia. She has memory problem as well. But significantly improved after we stopped her Lantus, most likely patient had metabolic encephalopathy secondary to hypoglycemia Glucose was a drop in the 60s on 11/25, and the 90s and 80s yesterday but thus improved now, the minimal glucose reading is 122. Does not look patient has UTI, she doesn't have significant urinary symptoms, no fever or leukocytosis. proCalcitonin is negative. She skipped on his aztreonam and urine culture is negative. Renal ultrasound showing mild right hydronephrosis and nonvisualization of the left kidney. Patient had checked bladder scan and she has more than 300 and straight cath, and then rechecked again it was 500 but after void it went down to 75 mL, it looks like she has intermittent retention and because of her memory problem there is delay in emptying her bladder. Therefore we will start Flomax tonight. Also patient might benefit from urology evaluation as an outpatient 11/28/2021 patient mentation improving slowly and gradually, as per staff patient may be at her basic mentation, we going to check with the family. Other than that she is doing well able to tolerate diet 50-75%. Ultrasound is today showing evidence of mild right hydronephrosis and looks like patient have some degree of retention so we will keep urine catheter in upon discharge. She remains on aztreonam and urine culture final results are still pending. Possible discharge in 24-48 hours if she keeps improvement. Patient will need some ECF for rehab upon discharge recommended for her No IV fluids today. 11/29/2021 Patient remains confused and drowsy, she is interactive and go back to sleep easily. She is still on aztreonam for suspected UTI, urine culture is pending. We will lower her Seroquel further 25 down to 12.5 mg. Vitals and labs are stable. Sugar is controlled on lingaliptin. Levemir 70 units held. See discharge instructions Patient still has a Moore catheter for evidence of regurgitation and mild right hydronephrosis. Patient was referred upon discharge the neurologist Dr. Ortiz and she agrees. Currently patient is off IV fluids Objective - Vital Signs Vital signs: Vital Signs Temp 98.9 F 11/29/21 08:11 Pulse 93 11/29/21 08:11 Resp 16 11/29/21 08:11 BP 143/82 11/29/21 08:11 Pulse Ox 95 11/29/21 08:11 FiO2 Intake & Output 11/28/21 11/29/21 11/29/21 18:59 06:59 18:59 Intake Total 150 240 Output Total 350 725 Balance -350 -575 240 Intake: Oral 150 240 Output: Urine 350 725 Other: Voiding Method Indwelling Catheter Indwelling Catheter Indwelling Catheter - Exam -GENERAL: The patient is awake, confused, follows commands, got agitation at times HEENT: Pupils are round and equally reacting to light. EOMI. No scleral icterus. No conjunctival pallor. Normocephalic, atraumatic. No pharyngeal erythema. No thyromegaly. CARDIOVASCULAR: S1 and S2 present. No murmurs, rubs, or gallops. PULMONARY: Chest is clear to auscultation, no wheezing or crackles. ABDOMEN: Soft, nontender, nondistended, normoactive bowel sounds. No palpable organomegaly. MUSCULOSKELETAL: No joint swelling or deformity. EXTREMITIES: No cyanosis, clubbing, or pedal edema. NEUROLOGICAL: Gross neurological examination did not reveal any focal deficits. SKIN: No rashes. no petechiae. - Labs CBC & Chem 7: 11/27/21 08:50 11/27/21 08:50 Labs: Abnormal Lab Results - Last 24 Hours (Table) 11/28/21 11/28/21 11/28/21 Range/Units 11:52 16:54 20:25 POC Glucose (mg/dL) 150 H 193 H 170 H (70-110) mg/dL 11/29/21 Range/Units 06:05 POC Glucose (mg/dL) 124 H (70-110) mg/dL Assessment and Plan Assessment: Metabolic and toxic encephalopathy, multifactorial for example due to medication effect, low vitamin B12, hyperglycemia, improved Hypoglycemia, improved related to her diabetes mellitus Mild urinary retention with right hydronephrosis, with normal kidney function. Possible Acute urinary tract infection, felt less likely. Pending urine culture Altered mental status with metabolic/toxic encephalopathy secondary to medication effect Alzheimer dementia with behavioral problems. Diabetes mellitus with hyperglycemia Low vitamin B12 C5-C6 spinal stenosis with right upper extremity/shoulder pain and no weakness Generalized weakness Plan: this is a pleasant 81 years old female with metabolic encephalopathy secondary to medication Start aztreonam and consult ID team . Follow-up urine culture Start Flomax and refer patient to urology as an outpatient. Keep Moore catheter upon discharge Continue with linagliptin and diabetic diet. Continue with insulin sliding scale. Hemoglobin A1c is 6.1% Try to limit narcotics. Continue with Seroquel 25 mg at bedtime but thought the dose to 12.5 mg. Continue with another Seroquel 25 mg daily as needed. Continue with Plavix Continue with vitamin B12 replacement Monitor glucose Neurology service signed off the case Orthopedic and psych service is already signed off Labs and medication were reviewed.. Continue same treatment. Continue with symptomatic treatment. Resume home medication. Monitor lytes and vitals. DVT and GI prophylaxis. Further recommendations as per clinical course of the patient DVT prophylaxis: Subcutaneous heparin GI Prophylaxis: Pepcid PT/OT: Patient may benefit from DARCY Long-term prognosis still guarded
[2021-11-29] MEDS: MEMANTINE 5 MG TAB PO SCH ×2 (10:43→23:10)
[2021-11-29] MEDS: METOPROLOL TARTRATE 25 MG TAB PO SCH ×2 (10:43→22:19)
[2021-11-29] MEDS: CYANOCOBALAMIN 500 MCG TAB PO SCH (10:44)
[2021-11-29] MEDS: FAMOTIDINE 20 MG/2 ML VIAL IV SCH ×2 (10:45→22:20)
[2021-11-29] MEDS: LOSARTAN 50 MG TAB PO SCH (10:47)
[2021-11-29] MEDS: HEPARIN SODIUM,PORCINE/PF 5,000 UNIT/0.5 ML SYRINGE SQ SCH ×2 (10:47→22:18)
[2021-11-29 10:55] LABS: Basophils % (A) 1 %; Eosinophils # (A) 0.1 k/uL (0-0.7); Eosinophils % (A) 1 %; HCT 31.6 % (34.0-46.0); HGB 10.5 gm/dL (11.4-16.0); Lymphocytes # (A) 1.6 k/uL (1.0-4.8); Lymphocytes % (A) 30 %; MCH 30.5 pg (25.0-35.0); MCHC 33.2 g/dL (31.0-37.0); MCV 91.8 fL (80.0-100.0); Monocytes # (A) 0.3 k/uL (0-1.0); Monocytes % (A) 6 %; Neutrophils # (A) 3.3 k/uL (1.3-7.7); Neutrophils % (A) 61 %; Platelet Count 314 k/uL (150-450); RBC 3.44 m/uL (3.80-5.40); RDW 14.1 % (11.5-15.5); WBC 5.4 k/uL (3.8-10.6)
[2021-11-29 11:23] LABS: African American GFR (CKD) >90 (>60 ml/min/1.73 sqM); Anion Gap 7 mmol/L; Blood Urea Nitrogen 12 mg/dL (7-17); Calcium 8.9 mg/dL (8.4-10.2); Carbon Dioxide 29 mmol/L (22-30); Chloride 102 mmol/L (98-107); Glucose 126 mg/dL (74-99); Magnesium 1.3 mg/dL (1.6-2.3); Non-African American GFR(CKD) 82 (>60 ml/min/1.73 sqM); Potassium 3.4 mmol/L (3.5-5.1); Sodium 138 mmol/L (137-145)
[2021-11-29 12:04] LABS: Glucose,Whole Blood 127 mg/dL (70-110)
[2021-11-29] MEDS ORDERED: SENNOSIDES 8.6 MG TAB PO PRN (14:58)
[2021-11-29] MEDS ORDERED: bisacodyL 10 MG SUPP RECTAL PRN (14:59)
--- NOTE | 2021-11-29 15:44 | P.PN ---
Subjective Progress Note Date: 11/28/21 Principal diagnosis: Urinary tract infection Patient is a 81-year-old female presenting to the hospital with weakness and lethargy with initial workup for possible CVA and she did have a negative UA on admission subsequently positive UA concerning for a cath associated UTI in this patient with a penicillin ALLERGY. On today's evaluation that is 11/28/2021, the patient denies having any fever or any chills, the patient is currently breathing comfortable on room air, the ewelina ent denies any chest pain or shortness of breath or cough no abdominal pain no diarrhea Objective - Vital Signs Vital signs: Vital Signs Temp 98.3 F 11/28/21 08:00 Pulse 78 11/28/21 12:00 Resp 16 11/28/21 12:00 BP 146/82 11/28/21 12:00 Pulse Ox 97 11/28/21 12:00 FiO2 Intake & Output 11/27/21 11/28/21 11/28/21 18:59 06:59 18:59 Output Total 250 1425 Balance -250 -1425 Output: Urine 250 1375 Straight 550 Post Void Residual 50 Other: Voiding Method Diaper External Catheter Indwelling Catheter Incontinent External Catheter - Exam GENERAL DESCRIPTION: An elderly female lying in bed in no distress RESPIRATORY SYSTEM: Unlabored breathing , decreased breath sounds at bases HEART: S1 S2 regular rate and rhythm , ABDOMEN: Soft , no tenderness EXTREMITIES: No edema feet - Labs CBC & Chem 7: 11/29/21 10:41 11/29/21 10:41 Labs: Abnormal Lab Results - Last 24 Hours (Table) 11/27/21 11/27/21 11/28/21 Range/Units 16:45 20:26 06:05 POC Glucose (mg/dL) 204 H 175 H 124 H (70-110) mg/dL 11/28/21 Range/Units 11:52 POC Glucose (mg/dL) 150 H (70-110) mg/dL Assessment and Plan (1) Urinary tract infection Current Visit: Yes Status: Acute Code(s): N39.0 - URINARY TRACT INFECTION, SITE NOT SPECIFIED SNOMED Code(s): 13299795 Plan: 1patient with significantly positive UA in this patient initial presentation to the hospital with mental status changes and initial concern for CVA however the patient did have work-up including CT and MRI that has been negative patient did have a normal UA on admission and subsequently was significantly positive UA with concern for possible catheter associated UTI. 2penicillin allergy that would limit the number of antibiotics safe to use. 3patient to continue Azactam to 1 g every 8 hours while waiting for the urine culture to finalize. Time with Patient: Less than 30
--- NOTE | 2021-11-29 15:45 | P.PN ---
Subjective Progress Note Date: 11/29/21 Principal diagnosis: Urinary tract infection Patient is a 81-year-old female presenting to the hospital with weakness and lethargy with initial workup for possible CVA and she did have a negative UA on admission subsequently positive UA concerning for a cath associated UTI in this patient with a penicillin ALLERGY. On today's evaluation that is 11/29/2021, the patient remains to be afebrile, the patient is breathing comfortable on room air, the patient denies any chest pain or shortness of breath or cough, the patient denies abdominal pain no diarrhea Objective - Vital Signs Vital signs: Vital Signs Temp 98.2 F 11/29/21 12:23 Pulse 76 11/29/21 12:23 Resp 16 11/29/21 12:23 BP 161/99 11/29/21 12:23 Pulse Ox 93 L 11/29/21 12:23 FiO2 Intake & Output 11/28/21 11/29/21 11/29/21 18:59 06:59 18:59 Intake Total 150 240 Output Total 350 725 Balance -350 -575 240 Intake: Oral 150 240 Output: Urine 350 725 Other: Voiding Method Indwelling Catheter Indwelling Catheter Indwelling Catheter - Exam GENERAL DESCRIPTION: An elderly female lying in bed in no distress RESPIRATORY SYSTEM: Unlabored breathing , decreased breath sounds at bases HEART: S1 S2 regular rate and rhythm , ABDOMEN: Soft , no tenderness EXTREMITIES: No edema feet - Labs CBC & Chem 7: 11/29/21 10:41 11/29/21 10:41 Labs: Abnormal Lab Results - Last 24 Hours (Table) 11/28/21 11/28/21 11/29/21 Range/Units 16:54 20:25 06:05 RBC (3.80-5.40) m/uL Hgb (11.4-16.0) gm/dL Hct (34.0-46.0) % Potassium (3.5-5.1) mmol/L Glucose (74-99) mg/dL POC Glucose (mg/dL) 193 H 170 H 124 H (70-110) mg/dL Magnesium (1.6-2.3) mg/dL 11/29/21 11/29/21 11/29/21 Range/Units 10:41 10:41 11:57 RBC 3.44 L (3.80-5.40) m/uL Hgb 10.5 L (11.4-16.0) gm/dL Hct 31.6 L (34.0-46.0) % Potassium 3.4 L (3.5-5.1) mmol/L Glucose 126 H (74-99) mg/dL POC Glucose (mg/dL) 127 H (70-110) mg/dL Magnesium 1.3 L (1.6-2.3) mg/dL Assessment and Plan (1) Urinary tract infection Current Visit: Yes Status: Acute Code(s): N39.0 - URINARY TRACT INFECTION, SITE NOT SPECIFIED SNOMED Code(s): 35038693 Plan: 1patient with significantly positive UA in this patient initial presentation to the hospital with mental status changes and initial concern for CVA however the patient did have work-up including CT and MRI that has been negative patient did have a normal UA on admission and subsequently was significantly positive UA with concern for possible catheter associated UTI. 2penicillin allergy that would limit the number of antibiotics safe to use. 3patient seemed to have shown Improvement and will continue Azactam to 1 g every 8 hours while waiting for the urine culture to finalize. Time with Patient: Less than 30
[2021-11-29 16:57] LABS: Glucose,Whole Blood 166 mg/dL (70-110)
[2021-11-29] MEDS: TAMSULOSIN 0.4 MG CAP.ER.24H PO SCH ×2 (18:39→18:44)
[2021-11-29 19:47] LABS: Glucose,Whole Blood 143 mg/dL (70-110)
[2021-11-29] MEDS: CLOPIDOGREL 75 MG TAB PO SCH (22:19)
[2021-11-29] MEDS: ATORVASTATIN 20 MG TAB PO SCH (23:10)
[2021-11-29] MEDS: QUEtiapine 25 MG TAB PO SCH (23:10)
[2021-11-30] MEDS: CIPROFLOXACIN 0.3% OPHTH SOLN 5 ML BTL BOTH EYES SCH ×6 (04:20→20:02)
[2021-11-30] MEDS: AZTREONAM 1 GM in SODIUM CHLORIDE 0.9% 50 ML IVPB SCH ×2 (04:21→13:10)
[2021-11-30 07:30] LABS: Glucose,Whole Blood 106 mg/dL (70-110)
[2021-11-30] MEDS: INSULIN ASPART (NovoLOG) 100 UNIT/ML VIAL SQ SCH ×4 (07:30→20:01)
[2021-11-30] MEDS: METOPROLOL TARTRATE 25 MG TAB PO SCH ×2 (10:22→20:01)
[2021-11-30] MEDS: LOSARTAN 50 MG TAB PO SCH (10:22)
[2021-11-30] MEDS: CYANOCOBALAMIN 500 MCG TAB PO SCH (10:22)
[2021-11-30] MEDS: MEMANTINE 5 MG TAB PO SCH ×2 (10:23→20:00)
[2021-11-30] MEDS: FAMOTIDINE 20 MG/2 ML VIAL IV SCH ×2 (10:23→20:02)
[2021-11-30] MEDS: HEPARIN SODIUM,PORCINE/PF 5,000 UNIT/0.5 ML SYRINGE SQ SCH ×2 (10:24→20:01)
[2021-11-30 11:48] LABS: Glucose,Whole Blood 118 mg/dL (70-110)
[2021-11-30 11:55] LABS: African American GFR (CKD) >90 (>60 ml/min/1.73 sqM); Anion Gap 14 mmol/L; Blood Urea Nitrogen 11 mg/dL (7-17); Calcium 9.4 mg/dL (8.4-10.2); Carbon Dioxide 24 mmol/L (22-30); Chloride 99 mmol/L (98-107); Glucose 120 mg/dL (74-99); Non-African American GFR(CKD) 83 (>60 ml/min/1.73 sqM); Sodium 137 mmol/L (137-145)
[2021-11-30 11:56] LABS: Magnesium 1.4 mg/dL (1.6-2.3); Potassium 3.7 mmol/L (3.5-5.1)
[2021-11-30] MEDS ORDERED: Magnesium Replacement Protocol 1 EACH MISC MISCELLANE PRN (14:23)
[2021-11-30 16:47] LABS: Glucose,Whole Blood 215 mg/dL (70-110)
--- NOTE | 2021-11-30 17:00 | P.PN ---
Subjective Progress Note Date: 11/30/21 This is an 81-year-old female presenting with lethargy undergoing neurological evaluation. Patient was found to have questionable urinalysis with positive nitrates 2, urine culture was positive for staphylococcus epidermidis. Infectious disease is following the patient and patient has been started on oral cefdinir today. Mentation continues to wax and wane, she does have history of dementia, hospital stay is most likely exacerbating this at times. She is being followed by neurology however MRI/CT brain has come back negative. Labs today showing sodium 137, potassium 3.7, magnesium 1.4 which patient will receive 3 bags of IV magnesium today. Remains afebrile, heart rate 80s, blood pressure 146/92, 98% room air. Review of Systems Constitutional: Denied any fatigue denied any fever. Cardio vascular: denied any chest pain, palpitations Gastrointestinal: denied any nausea, vomiting, diarrhea Pulmonary: Denied any shortness of breath cough Neurologic denied any new focal deficits All inpatient medications were reviewed and appropriate changes in these medications as dictated in the interval history and assessment and plan. PHYSICAL EXAMINATION: GENERAL: The patient is alert and oriented x1, confused, not in any acute distress. Well developed, well nourished. HEENT: Pupils are round and equally reacting to light. EOMI. No scleral icterus. No conjunctival pallor. Normocephalic, atraumatic. No pharyngeal erythema. No thyromegaly. CARDIOVASCULAR: S1 and S2 present. No murmurs, rubs, or gallops. PULMONARY: Chest is clear to auscultation, no wheezing or crackles. ABDOMEN: Soft, nontender, nondistended, normoactive bowel sounds. No palpable organomegaly. MUSCULOSKELETAL: No joint swelling or deformity. EXTREMITIES: No cyanosis, clubbing, or pedal edema. NEUROLOGICAL: Gross neurological examination did not reveal any focal deficits. SKIN: No rashes. Assessment and plan Assessment Altered mental status with metabolic/toxic encephalopathy secondary to medication effect Hypoglycemia, improved related to her diabetes mellitus Mild urinary retention with right hydronephrosis, with normal kidney function. Possible Acute urinary tract infection, culture showing staphylococcus epidermidis Alzheimer dementia with behavioral problems. Diabetes mellitus with hyperglycemia Low vitamin B12 C5-C6 spinal stenosis with right upper extremity/shoulder pain and no weakness Generalized weakness GI Prophylaxis DVT Prophylaxis Full Code Plan Infectious disease consultation, patient transitioned to oral antibiotics today Continue to monitor glucose Seroquel decreased to 12.5 mg Continue on flomax, indwelling catheter in place and patient will follow up with urology outpatient Neurology service has signed off Replace Magnesium Repeat labs in AM [facility]charge to [facility] most [facility] Thursday The impression and plan of care has been dictated by Dyan Parrish, Nurse Practitioner as directed. Dr. Suyapa MD I have performed a history and physical examination and medical decision making of this patient, discussed the same with the dictator, and agree with the dictators assessment and plan as written, documented as a scribe. Based on total visit time, I have performed more than 50% of this visit. Objective - Vital Signs Vital signs: Vital Signs Temp 98.1 F 11/30/21 12:48 Pulse 82 11/30/21 12:48 Resp 16 11/30/21 12:48 BP 146/92 11/30/21 12:48 Pulse Ox 98 11/30/21 12:48 FiO2 Intake & Output 11/29/21 11/30/21 11/30/21 18:59 06:59 18:59 Intake Total 240 70 Output Total 575 575 Balance 240 -505 -575 Weight 53.7 kg Intake: IV 20 0.9 20 Oral 240 Lipid 50 Aztreonam 1 gm In Sodium 50 Chloride 0.9% 50 ml @ 16. 67 mls/hr IVPB Q8H [id number] Rx #:[id number] Output: Urine 575 575 Other: Voiding Method Indwelling Catheter Indwelling Catheter Indwelling Catheter # Bowel Movements 0 - Labs CBC & Chem 7: 11/29/21 10:41 11/30/21 11:02 Labs: Abnormal Lab Results - Last 24 Hours (Table) 11/29/21 11/29/21 11/30/21 Range/Units 16:55 19:46 11:02 Glucose 120 H (74-99) mg/dL POC Glucose (mg/dL) 166 H 143 H (70-110) mg/dL Magnesium 1.4 L (1.6-2.3) mg/dL 11/30/21 Range/Units 11:46 Glucose (74-99) mg/dL POC Glucose (mg/dL) 118 H (70-110) mg/dL Magnesium (1.6-2.3) mg/dL Microbiology - Last 24 Hours (Table) 08/23/22 17:04 Urine Culture - Final Urine,Voided Staphylococcus epidermidis Assessment and Plan Time with Patient: Less than 30
[2021-11-30] MEDS: CEFDINIR 300 MG CAP PO SCH ×2 (17:12→20:03)
[2021-11-30] MEDS: TAMSULOSIN 0.4 MG CAP.ER.24H PO SCH (17:13)
[2021-11-30] MEDS: MAGNESIUM SULFATE-D5W PMX 1 GM in DEXTROSE/WATER 1 100ML.BAG IVPB SCH ×3 (17:14→20:02)
[2021-11-30 19:49] LABS: Glucose,Whole Blood 247 mg/dL (70-110)
[2021-11-30] MEDS: QUEtiapine 25 MG TAB PO SCH (20:01)
[2021-11-30] MEDS: CLOPIDOGREL 75 MG TAB PO SCH (20:01)
[2021-11-30] MEDS: ATORVASTATIN 20 MG TAB PO SCH (20:01)
--- NOTE | 2021-11-30 23:11 | P.PN ---
Subjective Progress Note Date: 11/30/21 Principal diagnosis: Urinary tract infection Patient is a 81-year-old female presenting to the hospital with weakness and lethargy with initial workup for possible CVA and she did have a negative UA on admission subsequently positive UA concerning for a cath associated UTI in this patient with a penicillin ALLERGY. On today's evaluation that is 11/30/2021, the patient continues to be afebrile, the patient is breathing comfortable on room air, the patient denies any chest pain or shortness of breath or cough, the patient denies abdominal pain no diarrhea has been reported by the nursing staff, patient apparently has been refusing most of her medication Objective - Vital Signs Vital signs: Vital Signs Temp 98.1 F 11/30/21 12:48 Pulse 82 11/30/21 12:48 Resp 16 11/30/21 12:48 BP 146/92 11/30/21 12:48 Pulse Ox 98 11/30/21 12:48 FiO2 Intake & Output 11/29/21 11/30/21 11/30/21 18:59 06:59 18:59 Intake Total 240 70 Output Total 575 575 Balance 240 -505 -575 Weight 53.7 kg Intake: IV 20 0.9 20 Oral 240 Lipid 50 Aztreonam 1 gm In Sodium 50 Chloride 0.9% 50 ml @ 16. 67 mls/hr IVPB Q8H [facility] Rx #:[id number] Output: Urine 575 575 Other: Voiding Method Indwelling Catheter Indwelling Catheter Indwelling Catheter # Bowel Movements 0 - Exam GENERAL DESCRIPTION: An elderly female lying in bed in no distress RESPIRATORY SYSTEM: Unlabored breathing , decreased breath sounds at bases HEART: S1 S2 regular rate and rhythm , ABDOMEN: Soft , no tenderness EXTREMITIES: No edema feet - Labs CBC & Chem 7: 11/29/21 10:41 11/30/21 11:02 Labs: Abnormal Lab Results - Last 24 Hours (Table) 11/29/21 11/29/21 11/30/21 Range/Units 16:55 19:46 11:02 Glucose 120 H (74-99) mg/dL POC Glucose (mg/dL) 166 H 143 H (70-110) mg/dL Magnesium 1.4 L (1.6-2.3) mg/dL 11/30/21 Range/Units 11:46 Glucose (74-99) mg/dL POC Glucose (mg/dL) 118 H (70-110) mg/dL Magnesium (1.6-2.3) mg/dL Microbiology - Last 24 Hours (Table) 11/26/21 17:04 Urine Culture - Final Urine,Voided Staphylococcus epidermidis Assessment and Plan (1) Urinary tract infection Current Visit: Yes Status: Acute Code(s): N39.0 - URINARY TRACT INFECTION, SITE NOT SPECIFIED SNOMED Code(s): 76839104 Plan: 1patient with significantly positive UA in this patient initial presentation to the hospital with mental status changes and initial concern for CVA however the patient did have work-up including CT and MRI that has been negative patient did have a normal UA on admission and subsequently was significantly positive UA with concern for possible catheter associated UTI. 2penicillin allergy that would limit the number of antibiotics safe to use. 3patient urine cultures have been finalized with oxacillin sensitive staph epi Levaquin could not be used because of interaction with other medications will give a short course of oral Omnicef Time with Patient: Less than 30
[2021-12-01] MEDS: CIPROFLOXACIN 0.3% OPHTH SOLN 5 ML BTL BOTH EYES SCH ×7 (00:07→23:26)
[2021-12-01 06:26] LABS: Glucose,Whole Blood 182 mg/dL (70-110)
[2021-12-01] MEDS: INSULIN ASPART (NovoLOG) 100 UNIT/ML VIAL SQ SCH ×5 (06:56→20:37)
[2021-12-01] MEDS: FAMOTIDINE 20 MG/2 ML VIAL IV SCH ×2 (09:27→20:36)
[2021-12-01] MEDS: CYANOCOBALAMIN 500 MCG TAB PO SCH (09:27)
[2021-12-01] MEDS: MEMANTINE 5 MG TAB PO SCH ×2 (09:28→20:36)
[2021-12-01] MEDS: METOPROLOL TARTRATE 25 MG TAB PO SCH ×2 (09:28→20:36)
[2021-12-01] MEDS: LOSARTAN 50 MG TAB PO SCH (09:28)
[2021-12-01] MEDS: HEPARIN SODIUM,PORCINE/PF 5,000 UNIT/0.5 ML SYRINGE SQ SCH ×2 (09:29→20:35)
[2021-12-01] MEDS: CEFDINIR 300 MG CAP PO SCH (09:29)
[2021-12-01 11:49] LABS: Glucose,Whole Blood 295 mg/dL (70-110)
--- NOTE | 2021-12-01 11:57 | XR ---
EXAMINATION TYPE: XR abdomen 1V DATE OF EXAM: 12/01/2021 11:45 AM INDICATION: Patient age:Female; 81 years old; Reason for study: constipation; COMPARISON: None. TECHNIQUE: One radiographic view of the abdomen was obtained. FINDINGS: Large stool burden throughout the colon. The bowel gas pattern is nonspecific without dilat ed loops of small or large bowel. There is no evidence for organomegaly or pneumoperitoneum. The oss eous structures are intact. Calcifications project over the right iliac bone and left lateral thigh. . Fecal material and gas are demonstrated throughout the colon and rectum. IMPRESSION: Large stool burden without evidence of obstruction.
--- NOTE | 2021-12-01 14:16 | P.PN ---
Subjective Progress Note Date: 12/01/21 This is an 81-year-old female presenting with lethargy undergoing neurological evaluation. Patient was found to have questionable urinalysis with positive nitrates 2, urine culture was positive for staphylococcus epidermidis. Infectious disease is following the patient and patient has been started on oral cefdinir today. Mentation continues to wax and wane, she does have history of dementia, hospital stay is most likely exacerbating this at times. She is being followed by neurology however MRI/CT brain has come back negative. Labs today showing sodium 137, potassium 3.7, magnesium 1.4 which patient will receive 3 bags of IV magnesium today. Remains afebrile, heart rate 80s, blood pressure 146/92, 98% room air. 12/01/2021 Patient evaluated today resting in bed. Per nurse her appetite has increased, she is eating about 50% of hospital meals and family is bringing in food that she is eating. Patient has not had a BM since the . Bowel sounds are more hypoactive today, no abdominal tenderness or distention noted. Abdominal xray was performed which shows large stool burden throughout the colon. Suppository will be given. Patient has been receiving senna daily as well. Magnesium today i s now 2.1. Blood glucose in the 200s today, insulin adjusted. Patient does use long acting at home. Plan for discharge to rehab tomorrow. Review of Systems Constitutional: Denied any fatigue denied any fever. Cardio vascular: denied any chest pain, palpitations Gastrointestinal: denied any nausea, vomiting, diarrhea, no BM reported. Pulmonary: Denied any shortness of breath cough Neurologic denied any new focal deficits All inpatient medications were reviewed and appropriate changes in these medications as dictated in the interval history and assessment and plan. PHYSICAL EXAMINATION: GENERAL: The patient is alert and oriented x1, confused, not in any acute distress. Well developed, well nourished. HEENT: Pupils are round and equally reacting to light. EOMI. No scleral icterus. No conjunctival pallor. Normocephalic, atraumatic. No pharyngeal erythema. No thyromegaly. CARDIOVASCULAR: S1 and S2 present. No murmurs, rubs, or gallops. PULMONARY: Chest is clear to auscultation, no wheezing or crackles. ABDOMEN: Soft, nontender, nondistended, hypoactive bowel sounds. No palpable organomegaly. Indwelling catheter in place MUSCULOSKELETAL: No joint swelling or deformity. EXTREMITIES: No cyanosis, clubbing, or pedal edema. NEUROLOGICAL: Gross neurological examination did not reveal any focal deficits. SKIN: No rashes. Assessment and plan Assessment Altered mental status with metabolic/toxic encephalopathy secondary to medication effect Hypoglycemia, improved related to her diabetes mellitus with poor oral intake Mild urinary retention with right hydronephrosis, with normal kidney function. Possible Acute urinary tract infection, culture showing staphylococcus epidermidis Alzheimer dementia with behavioral problems. Diabetes mellitus with hyperglycemia Low vitamin B12 C5-C6 spinal stenosis with right upper extremity/shoulder pain and no weakness Generalized weakness GI Prophylaxis DVT Prophylaxis Full Code Plan Infectious disease consultation, patient transitioned to oral antibiotics today Continue to monitor glucose Seroquel decreased to 12.5 mg Continue on flomax, indwelling catheter in place and patient will follow up with urology outpatient Neurology service has signed off Suppository for constipation PT/OT Discharge to rehab thursday The impression and plan of care has been dictated by Dyan Parrish, Nurse Practitioner as directed. Dr. Suyapa MD I have performed a history and physical examination and medical decision making of this patient, discussed the same with the dictator, and agree with the dictators assessment and plan as written, documented as a scribe. Based on total visit time, I have performed more than 50% of this visit. Objective - Vital Signs Vital signs: Vital Signs Temp 97.4 F L 12/01/21 09:17 Pulse 79 12/01/21 12:31 Resp 16 12/01/21 12:31 BP 101/65 12/01/21 12:31 Pulse Ox 96 12/01/21 12:31 FiO2 Intake & Output 11/30/21 12/01/21 12/01/21 18:59 06:59 18:59 Intake Total 25 400 476 Output Total 775 300 Balance -750 100 476 Intake: Intake, IV Titration 100 Amount Magnesium Sulfate-D5w Pmx 100 1 gm In Dextrose/Water 1 100ml.bag @ 100 mls/hr IVPB Q1H [facility] Rx#: [id number] Oral 25 300 476 Output: Urine 775 300 Other: Voiding Method Indwelling Catheter Indwelling Catheter Indwelling Catheter # Bowel Movements 0 - Labs CBC & Chem 7: 11/29/21 10:41 11/30/21 11:02 Labs: Abnormal Lab Results - Last 24 Hours (Table) 11/30/21 11/30/21 12/01/21 Range/Units 16:46 19:46 06:25 POC Glucose (mg/dL) 215 H 247 H 182 H (70-110) mg/dL 12/01/21 Range/Units 11:44 POC Glucose (mg/dL) 295 H (70-110) mg/dL Assessment and Plan Time with Patient: Less than 30
[2021-12-01] MEDS ORDERED: bisacodyL 10 MG SUPP RECTAL STA (15:00)
--- NOTE | 2021-12-01 15:49 | P.PN ---
Subjective Progress Note Date: 12/01/21 Principal diagnosis: Urinary tract infection Patient is a 81-year-old female presenting to the hospital with weakness and lethargy with initial workup for possible CVA and she did have a negative UA on admission subsequently positive UA concerning for a cath associated UTI in this patient with a penicillin ALLERGY. On today's evaluation that is 12/01/2021, the patient remains to be afebrile, the patient is breathing comfortable on room air, the patient denies any chest pain or shortness of breath or cough, the patient denies abdominal pain no diarrhea, apparently the patient had been refusing her oral antibiotics and the family is requesting to switch her to IV Objective - Vital Signs Vital signs: Vital Signs Temp 97.4 F L 12/01/21 09:17 Pulse 79 12/01/21 12:31 Resp 16 12/01/21 12:31 BP 101/65 12/01/21 12:31 Pulse Ox 96 12/01/21 12:31 FiO2 Intake & Output 11/30/21 12/01/21 12/01/21 18:59 06:59 18:59 Intake Total 25 400 476 Output Total 775 300 Balance -750 100 476 Intake: Intake, IV Titration 100 Amount Magnesium Sulfate-D5w Pmx 100 1 gm In Dextrose/Water 1 100ml.bag @ 100 mls/hr IVPB Q1H [facility] Rx#: [id number] Oral 25 300 476 Output: Urine 775 300 Other: Voiding Method Indwelling Catheter Indwelling Catheter Indwelling Catheter # Bowel Movements 0 - Exam GENERAL DESCRIPTION: An elderly female lying in bed in no distress RESPIRATORY SYSTEM: Unlabored breathing , decreased breath sounds at bases HEART: S1 S2 regular rate and rhythm , ABDOMEN: Soft , no tenderness EXTREMITIES: No edema feet - Labs CBC & Chem 7: 11/29/21 10:41 11/30/21 11:02 Labs: Abnormal Lab Results - Last 24 Hours (Table) 11/30/21 11/30/21 12/01/21 Range/Units 16:46 19:46 06:25 POC Glucose (mg/dL) 215 H 247 H 182 H (70-110) mg/dL 12/01/21 Range/Units 11:44 POC Glucose (mg/dL) 295 H (70-110) mg/dL Assessment and Plan (1) Urinary tract infection Current Visit: Yes Status: Acute Code(s): N39.0 - URINARY TRACT INFECTION, SITE NOT SPECIFIED SNOMED Code(s): 27929154 Plan: 1patient with significantly positive UA in this patient initial presentation to the hospital with mental status changes and initial concern for CVA however the patient did have work-up including CT and MRI that has been negative patient did have a normal UA on admission and subsequently was significantly positive UA with concern for possible catheter associated UTI. 2penicillin allergy that would limit the number of antibiotics safe to use. However the patient has tolerated Omnicef without any problems urine culture with staph epi antibiotic will be switched to short course of IV Rocephin Family the bedside and multiple questions concerned were answered Time with Patient: Less than 30
[2021-12-01 16:29] LABS: Glucose,Whole Blood 250 mg/dL (70-110)
[2021-12-01] MEDS: TAMSULOSIN 0.4 MG CAP.ER.24H PO SCH (17:31)
[2021-12-01 19:53] LABS: Glucose,Whole Blood 242 mg/dL (70-110)
[2021-12-01] MEDS: QUEtiapine 25 MG TAB PO SCH (20:36)
[2021-12-01] MEDS: ATORVASTATIN 20 MG TAB PO SCH (20:36)
[2021-12-01] MEDS: CLOPIDOGREL 75 MG TAB PO SCH (20:36)
[2021-12-01] MEDS: INSULIN DETEMIR (LEVEMIR) 100 UNIT/ML SYR SQ SCH (20:37)
[2021-12-02] MEDS: CIPROFLOXACIN 0.3% OPHTH SOLN 5 ML BTL BOTH EYES SCH ×6 (04:34→23:45)
[2021-12-02 06:04] LABS: Glucose,Whole Blood 81 mg/dL (70-110)
[2021-12-02] MEDS: INSULIN ASPART (NovoLOG) 100 UNIT/ML VIAL SQ SCH ×7 (06:09→20:10)
[2021-12-02] MEDS: HEPARIN SODIUM,PORCINE/PF 5,000 UNIT/0.5 ML SYRINGE SQ SCH ×2 (10:22→19:59)
[2021-12-02] MEDS: FAMOTIDINE 20 MG/2 ML VIAL IV SCH ×2 (10:22→20:00)
[2021-12-02] MEDS: LOSARTAN 50 MG TAB PO SCH (10:22)
[2021-12-02] MEDS: CYANOCOBALAMIN 500 MCG TAB PO SCH (10:23)
[2021-12-02] MEDS: MEMANTINE 5 MG TAB PO SCH ×2 (10:23→19:59)
[2021-12-02] MEDS: METOPROLOL TARTRATE 25 MG TAB PO SCH ×2 (10:23→20:00)
--- NOTE | 2021-12-02 11:16 | CDI ---
Documentation Clarification Form Date: 12/02/2021 10:28:34 AM From: Dejah Wall RN, CCDS Admit Date: 11/22/2021 12:49:00 PM Patient Name: Donna Moreno Visit Number: [id number] Discharge Date: ATTENTION: The Clinical Documentation Specialists (CDI) and [facility] Coding Staff appreciate your assistance in clarifying documentation. Please respond to the clarification below the line at the bottom and electronically sign. The CDI & [facility] Coding staff will review the response and follow-up if needed. Please note: Queries are made part of the Legal Health Record. If you have any questions, please contact the author of this message via ITS. Dr. Ranjeet Sandoval Concern for possible catheter associated UTI is documented in your consult and subsequent progress note starting on. Additional clarification regarding this diagnosis is requested. History/Risk Factors: Dementia, Diabetes mellitus, Hypertension Clinical Indicators: 81-year-old female present for evaluation of lethargy, confusion. Possible catheter associated UTI is documented. Patient did not have a Moore catheter on 11/22 or 11/26. She was straight cath at 16:05 on 11/26 and UA sent. Straight cath on 11/28 at 06:30 11/28 Moore Catheter insertion 11/28 @ 06:30 11/22-11/27 incontinent Diaper, brief with External catheter. 11/22 UA: Negative Leukocyte Esterase 11/26 UA: (@ 13:41 and 17:04) Urine Nitrite positive, Large Leukocyte Esterase. 11/26 UA straight catherization 11/26 Vital Signs: 158/81 92 16 97.4 95 % RA 11/25 WBC: 8.0 11/26 Urine Culture: Staphylococcus epidermidis Treatment Azactam 1GM IVPB Q 8 HRS -11/30 Omincef 300 MG PO BID 11/30-12/01 Rocephin 1GM IVPB Q 24 H 12/01 Please clarify if there is an additional diagnosis associated with the UTI: [ ] UTI only [ ] Catheter associated UTI [ ] Contaminated specimen [ ] Other, please specify [ ] Unable to determine Present on Admission: [ ] Yes [ ] No (Template Last Revised: June 2020) __Has been documented in simple [place]ican in the progress notes as well as consult what the patient diagnosis is MTDD
[2021-12-02 11:46] LABS: Glucose,Whole Blood 96 mg/dL (70-110)
--- NOTE | 2021-12-02 14:10 | P.DS ---
Providers Date of admission: 11/22/21 12:49 Attending physician: Kia Currie MD Consults: 11/22/21 12:41 Consult Physician Routine Consulting Provider: Jesús Woo Consult Reason/Comments: ams Do you want consulting provider notified?: Already Contacted Consult Physician Routine Consulting Provider: Christo Montalvo Consult Reason/Comments: history of seroquel use Do you want consulting provider notified?: Yes 11/22/21 15:34 Consult Physician Routine Consulting Provider: Black Levin Consult Reason/Comments: canal stenosis per cervical CT reported but I feel not significant Do you want consulting provider notified?: Yes 11/26/21 19:29 Consult Physician Routine Consulting Provider: Ranjeet Sandoval Consult Reason/Comments: uti Do you want consulting provider notified?: Yes, Notify in am Primary care physician: Physician Nonstaff Hospital Course: Diagnosis Altered mental status with metabolic/toxic encephalopathy secondary to medication effect Hypoglycemia, improved related to her diabetes mellitus with poor oral intake Mild urinary retention with right hydronephrosis, with normal kidney function. Possible Acute urinary tract infection, culture showing staphylococcus epide rmidis Alzheimer dementia with behavioral problems. Diabetes mellitus with hyperglycemia Low vitamin B12 C5-C6 spinal stenosis with right upper extremity/shoulder pain and no weakness Generalized weakness Full Code Discharge Disposition Patient is stable for discharge to rehab. Plan of care was discussed with patients daughter. She is agreeable for discharge to rehab today and medication changes were addressed. This is an 81-year-old female. History of present illness obtained from daughter was at the bedside. Patient is unable to provide history present illness. Patient arrived to ER via EMS from home. Patient was brought to the ER for several days of lethargy and difficulty to arouse. She also has a new onset left facial droop. Patient has history of dementia normally resides in [place] however staying with a daughter. Daughter states that her symptoms began over the last 2-3 days. At first she was little lethargic however now she is difficult to arouse. On admission, chemistry panel seems unremarkable except for the magnesium which is 1.1. TSH is 0.585. Urinalysis questionable for UTI, urine culture did show staphylococcus epidermidis and patient was treated with IV rocephin while inpatient. Urine drug screen is positive for tricyclic and benzo however the rest is nondetected. CT of the head is reported as no acute intracranial hemorrhage, mass effect or m idline shift is seen. Degenerative nonspecific white matter changes. Recommend MRI if concern for acute ischemia. was reported as there is no acute fracture or dislocation evident in the cervical spine. Multilevel degenerative changes and facet arthropathy with suspected canal stenosis C5-C6 and bilateral foraminal encroachment. Possible sagittal disc protrusion or herniation C3-C4. Patient had xray of right humerus which is suspected as underlying rotator cuff tendon opacity. Consider MRI of shoudler. Patient did undergo brain MRI which shows no evidence for intracranial mass or acute/subacute infarctt. There are nonspecific white matter changes like secondary to small vessel ischemic disease. Cholesterol panel showing triglycerides 140, cholesterol 126, LDL 67.8, HDL 30.20. Vitamin B12 221.0, Folate 13.70. Patient was admitted for altered mental status and underwent evaluation by neurology, psychiatry and also had been evaluated by orthopedics regarding findings of CT scan imaging. Neurology recommended to continue on lipitor and plavix regarding facial droop if this is a new finding. Psychiatry recommending to decrease dose of seroquel and also to avoid use of haldol. Suggestions made for using gabapentin for agitation as well. She has been titrated down on seroquel dosing and is also being monitored off haldol. During this hospital stay patient was found to have mild right hydronephrosis on work up for UTI and indwelling catheter was inserted, patient will follow up with nephrology outpatient. There was also concern about no bowel movement for the last 10 days and abdominal xray completed which is showing large stool burden mostly in the colon and rectum. There is no bowel obstruction. Patient received suppository and had 3 BMs. No abdominal pain, no nausea vomiting reported. 12/02/2021 Patients appetite has improved per staff and family is bringing patient in meals which she is eating about 75% of her food. Facial droop appears to be coming and going. She does continue on lipitor and plavix for stroke prevention. She is also continued on vitamin B12 daily as well as her B12 level was found to be low. BUN and creatinine have remained stable. Potassium and magnesium did drop mostly due to poor oral intake and she did receive electrolyte supplementation. Most recent labs showing white count 5.4, hgb 10.5, sodium 137, potassium 3.7, BUN 11, creatinine 0.66, blood glucose in the 90s, magnesium 2.1. She is afebrile 98.7, heart rate 95, blood pressure 123/61, 96% on room air. Lungs are clear S1 S2 auscultated, abdomen is soft and nontender, bowel sounds have improved today. Patient does have symmetry with smile, pupils are equal reactive, Equal arm strength. Continues with indwelling catheter. Total time taken in discharge planning greater than 35 minutes. Please see medication reconciliation for a list of current medication. Thank you for allowing us to participate in the care of this patient. The impression and plan of care has been dictated by Dyan Parrish, Nurse Practitioner as directed. Dr. Suyapa MD I have performed a history and physical examination and medical decision making of this patient, discussed the same with the dictator, and agree with the dictators assessment and plan as written, documented as a scribe. Based on total visit time, I have performed more than 50% of this visit. Patient Condition at Discharge: Fair Plan - Discharge Summary Discharge Rx Participant: No New Discharge Prescriptions: New Ciprofloxacin Ophth Soln [Ciloxan 0.3% Ophth Soln] 2 drops BOTH EYES Q4HR ml Acetaminophen Tab [Tylenol] 650 mg PO Q6HR PRN tab PRN Reason: Mild Pain Or Fever > 100.5 Cyanocobalamin [Vitamin B-12] 1,000 mcg PO DAILY tab Docusate [Colace] 100 mg PO DAILY #2 capsule Tamsulosin [Flomax] 0.4 mg PO PC-SUPPER cap Sennosides [Senokot] 8.6 mg PO BID PRN tab PRN Reason: Constipation Atorvastatin [Lipitor] 20 mg PO HS tab Clopidogrel [Plavix] 75 mg PO HS tab QUEtiapine FUMARATE [SEROquel] 25 mg PO DAILY PRN #10 tablet PRN Reason: Agitation Or Acute Psychosis Continue Potassium Gluconate [Potassium Gluconate ER] 99 mg PO DAILY Metoprolol Tartrate [Lopressor] 25 mg PO BID Memantine HCl [Memantine HCl ER] 21 mg PO HS Insulin Glargine,Hum.rec.anlog [Lantus Solostar Pen] 7 units SQ HS sitaGLIPtin [Januvia] 100 mg PO HS QUEtiapine FUMARATE [SEROquel] 25 mg PO HS #30 tab Changed Losartan Potassium [Cozaar] 50 mg PO DAILY #2 tab Discontinued QUEtiapine [SEROquel] 50 mg PO HS metFORMIN HCL [Glucophage] 1,000 mg PO BID Discharge Medication List Insulin Glargine,Hum.rec.anlog [Lantus Solostar Pen] 7 units SQ HS 11/22/21 [History] Memantine HCl [Memantine HCl ER] 21 mg PO HS 11/22/21 [History] Metoprolol Tartrate [Lopressor] 25 mg PO BID 11/22/21 [History] Potassium Gluconate [Potassium Gluconate ER] 99 mg PO DAILY 11/22/21 [History] sitaGLIPtin [Januvia] 100 mg PO HS 11/22/21 [History] Acetaminophen Tab [Tylenol] 650 mg PO Q6HR PRN tab 11/26/21 [Rx] Atorvastatin [Lipitor] 20 mg PO HS tab 11/26/21 [Rx] Ciprofloxacin Ophth Soln [Ciloxan 0.3% Ophth Soln] 2 drops BOTH EYES Q4HR ml 11/26/21 [Rx] Clopidogrel [Plavix] 75 mg PO HS tab 11/26/21 [Rx] Cyanocobalamin [Vitamin B-12] 1,000 mcg PO DAILY tab 11/26/21 [Rx] QUEtiapine FUMARATE [SEROquel] 25 mg PO DAILY PRN #10 tablet 11/26/21 [Rx] QUEtiapine FUMARATE [SEROquel] 25 mg PO HS #30 tab 11/26/21 [Rx] Docusate [Colace] 100 mg PO DAILY #2 capsule 12/02/21 [Rx] Losartan Potassium [Cozaar] 50 mg PO DAILY #2 tab 12/02/21 [Rx] Sennosides [Senokot] 8.6 mg PO BID PRN tab 12/02/21 [Rx] Tamsulosin [Flomax] 0.4 mg PO PC-SUPPER cap 12/02/21 [Rx] Follow up Appointment(s)/Referral(s): Jone Oliver MD [STAFF PHYSICIAN] - 1-2 Days Nonstaff,Physician [Primary Care Provider] - 1-2 days Black Levin DO [Doctor of Osteopathic Medicine] - 1 Week Titus Urena MD [STAFF PHYSICIAN] - 1 Week (Urologist, kidney doctor, for your urine retention) Ambulatory/Diagnostic Orders: Basic Metabolic Panel [LAB.AMB] Time Frame: 2 Days, Location: None Selected Complete Blood Count w/diff [LAB.AMB] Time Frame: 2 Days, Location: None Selected Magnesium [LAB.AMB] Time Frame: 2 Days, Location: None Selected Activity/Diet/Wound Care/Special Instructions: Discharge to [facility] with indwelling catheter Follow up urology outpatient Repeat labs in 2 to 3 days Discharge Disposition: TRANSFER TO SNF/ECF
[2021-12-02 16:34] LABS: Glucose,Whole Blood 147 mg/dL (70-110)
[2021-12-02] MEDS: ACETAMINOPHEN TAB 325 MG TAB PO PRN (17:20)
[2021-12-02] MEDS: TAMSULOSIN 0.4 MG CAP.ER.24H PO SCH (17:23)
[2021-12-02] MEDS: QUEtiapine 25 MG TAB PO SCH (20:00)
[2021-12-02] MEDS: CLOPIDOGREL 75 MG TAB PO SCH (20:00)
[2021-12-02] MEDS: ATORVASTATIN 20 MG TAB PO SCH (20:00)
[2021-12-02 20:07] LABS: Glucose,Whole Blood 242 mg/dL (70-110)
[2021-12-02] MEDS: INSULIN DETEMIR (LEVEMIR) 100 UNIT/ML SYR SQ SCH (20:10)
--- NOTE | 2021-12-02 21:25 | P.PN ---
Subjective Progress Note Date: 12/02/21 Principal diagnosis: Urinary tract infection Patient is a 81-year-old female presenting to the hospital with weakness and lethargy with initial workup for possible CVA and she did have a negative UA on admission subsequently positive UA concerning for a cath associated UTI in this patient with a penicillin ALLERGY. On today's evaluation that is 12/02/2021, the patient continues to be afebrile, the patient is breathing comfortable on room air, the patient denies chest pain, shortness of breath or cough, the patient denies abdominal pain no diarrhea has been reported by the nursing staff Objective - Vital Signs Vital signs: Vital Signs Temp 98.7 F 12/02/21 08:55 Pulse 95 12/02/21 08:55 Resp 16 12/02/21 08:55 BP 123/61 12/02/21 08:55 Pulse Ox 96 12/02/21 08:55 FiO2 Intake & Output 12/01/21 12/02/21 12/02/21 18:59 06:59 18:59 Intake Total 856 100 Output Total 100 300 Balance 756 -200 Intake: Oral 856 100 Output: Urine 100 300 Other: Voiding Method Indwelling Catheter Indwelling Catheter Indwelling Catheter # Bowel Movements 1 - Exam GENERAL DESCRIPTION: An elderly female lying in bed in no distress RESPIRATORY SYSTEM: Unlabored breathing , decreased breath sounds at bases HEART: S1 S2 regular rate and rhythm , ABDOMEN: Soft , no tenderness EXTREMITIES: No edema feet - Labs CBC & Chem 7: 11/29/21 10:41 11/30/21 11:02 Labs: Abnormal Lab Results - Last 24 Hours (Table) 12/01/21 12/01/21 12/01/21 Range/Units 11:44 16:27 19:52 POC Glucose (mg/dL) 295 H 250 H 242 H (70-110) mg/dL Assessment and Plan (1) Urinary tract infection Current Visit: Yes Status: Acute Code(s): N39.0 - URINARY TRACT INFECTION, SITE NOT SPECIFIED SNOMED Code(s): 34391706 Plan: 1patient with significantly positive UA in this patient initial presentation to the hospital with mental status changes and initial concern for CVA however the patient did have work-up including CT and MRI that has been negative patient did have a normal UA on admission and subsequently was significantly positive UA with concern for possible catheter associated UTI. 2penicillin allergy that would limit the number of antibiotics safe to use. However the patient has tolerated Omnicef without any problems urine culture with staph epi oxacillin sensitive on Rocephin and finishing therapy with short course of oral Ceftin on discharge discussed with [employer] WORKER for admitting team Time with Patient: Less than 30
[2021-12-03] MEDS: CIPROFLOXACIN 0.3% OPHTH SOLN 5 ML BTL BOTH EYES SCH ×5 (06:20→21:13)
[2021-12-03 06:25] LABS: Glucose,Whole Blood 77 mg/dL (70-110)
[2021-12-03] MEDS: INSULIN ASPART (NovoLOG) 100 UNIT/ML VIAL SQ SCH ×7 (06:28→21:13)
[2021-12-03] MEDS: FAMOTIDINE 20 MG/2 ML VIAL IV SCH ×2 (08:33→21:12)
[2021-12-03] MEDS: HEPARIN SODIUM,PORCINE/PF 5,000 UNIT/0.5 ML SYRINGE SQ SCH ×2 (08:33→21:14)
[2021-12-03] MEDS: MEMANTINE 5 MG TAB PO SCH ×2 (08:34→21:13)
[2021-12-03] MEDS: LOSARTAN 50 MG TAB PO SCH (08:34)
[2021-12-03] MEDS: CYANOCOBALAMIN 500 MCG TAB PO SCH (08:34)
[2021-12-03] MEDS: METOPROLOL TARTRATE 25 MG TAB PO SCH ×2 (08:35→21:12)
[2021-12-03 11:42] LABS: Glucose,Whole Blood 184 mg/dL (70-110)
--- NOTE | 2021-12-03 14:29 | P.PN ---
Subjective Progress Note Date: 12/03/21 This is an 81-year-old female presenting with lethargy undergoing neurological evaluation. Patient was found to have questionable urinalysis with positive nitrates 2, urine culture was positive for staphylococcus epidermidis. Infectious disease is following the patient and patient has been started on oral cefdinir today. Mentation continues to wax and wane, she does have history of dementia, hospital stay is most likely exacerbating this at times. She is being followed by neurology however MRI/CT brain has come back negative. Labs today showing sodium 137, potassium 3.7, magnesium 1.4 which patient will receive 3 bags of IV magnesium today. Remains afebrile, heart rate 80s, blood pressure 146/92, 98% room air. 12/01/2021 Patient evaluated today resting in bed. Per nurse her appetite has increased, she is eating about 50% of hospital meals and family is bringing in food that she is eating. Patient has not had a BM since the . Bowel sounds are more hypoactive today, no abdominal tenderness or distention noted. Abdominal xray was performed which shows large stool burden throughout the colon. Suppository will be given. Patient has been receiving senna daily as well. Magnesium today i s now 2.1. Blood glucose in the 200s today, insulin adjusted. Patient does use long acting at home. Plan for discharge to rehab tomorrow. 12/03/2021 Patient is evaluated today sitting up in bed. She is more awake and alert today, talkative. No facial asymmetry noted today. She denies pain, reports fair appetite. Continues with indwelling catheter. She did receive a dose of seroquel yesterday as thought patient was going to rehab however was not accepted to facility. She also received dose last night for bedtime and she did well. Adjustments were made for discharge after discussion with family. She continues on aspirin/plavix/lipitor for stroke prophylaxis. Pending accepting subacute rehab. Infectious disease recommended 3 more days of oral omnicef on discharge. Review of Systems Constitutional: Denied any fatigue denied any fever. Cardio vascular: denied any chest pain, palpitations Gastrointestinal: denied any nausea, vomiting, diarrhea Pulmonary: Denied any shortness of breath cough Neurologic denied any new focal deficits All inpatient medications were reviewed and appropriate changes in these medications as dictated in the interval history and assessment and plan. PHYSICAL EXAMINATION: GENERAL: The patient is alert and oriented x1, confused, not in any acute distress. Well developed, well nourished. HEENT: Pupils are round and equally reacting to light. EOMI. No scleral icterus. No conjunctival pallor. Normocephalic, atraumatic. No pharyngeal erythema. No thyromegaly. CARDIOVASCULAR: S1 and S2 present. No murmurs, rubs, or gallops. PULMONARY: Chest is clear to auscultation, no wheezing or crackles. ABDOMEN: Soft, nontender, nondistended, hypoactive bowel sounds. No palpable organomegaly. Indwelling catheter in place MUSCULOSKELETAL: No joint swelling or deformity. EXTREMITIES: No cyanosis, clubbing, or pedal edema. NEUROLOGICAL: Gross neurological examination did not reveal any focal deficits. SKIN: No rashes. Assessment and plan Assessment Altered mental status with metabolic/toxic encephalopathy secondary to m edication effect, improving Hypoglycemia, improved related to her diabetes mellitus with poor oral intake Mild urinary retention with right hydronephrosis, with normal kidney function. Possible Acute urinary tract infection, culture showing staphylococcus epidermidis Alzheimer dementia with behavioral problems. Diabetes mellitus with hyperglycemia Low vitamin B12 C5-C6 spinal stenosis with right upper extremity/shoulder pain and no weakness Generalized weakness GI Prophylaxis DVT Prophylaxis Full Code Plan Infectious disease consultation, patient transitioned to oral antibiotics on discharge Continue to monitor glucose Seroquel adjustments made and patient tolerating well Continue on flomax, indwelling catheter in place and patient will follow up with urology outpatient Neurology service has signed off Suppository for constipation given which constipation has resolved, continue on bowel regimen PT/OT Discharge to subacute rehab pending accepting facility The impression and plan of care has been dictated by Dyan Parrish, Nurse Practitioner as directed. Dr. Suyapa MD I have performed a history and physical examination and medical decision making of this patient, discussed the same with the dictator, and agree with the dictators assessment and plan as written, documented as a scribe. Based on total visit time, I have performed more than 50% of this visit. Objective - Vital Signs Vital signs: Vital Signs Temp 98.3 F 12/03/21 12:00 Pulse 68 12/03/21 12:00 Resp 16 12/03/21 12:00 BP 174/79 12/03/21 12:00 Pulse Ox 97 12/03/21 12:00 FiO2 Intake & Output 12/02/21 12/03/21 12/03/21 18:59 06:59 18:59 Intake Total 0 Output Total 250 300 Balance -250 -300 Weight 53.7 kg Intake: Oral 0 Output: Urine 250 300 Other: Voiding Method Indwelling Catheter Indwelling Catheter Indwelling Catheter - Labs CBC & Chem 7: 11/29/21 10:41 11/30/21 11:02 Labs: Abnormal Lab Results - Last 24 Hours (Table) 12/02/21 12/02/21 12/03/21 Range/Units 16:32 20:05 11:41 POC Glucose (mg/dL) 147 H 242 H 184 H (70-110) mg/dL Assessment and Plan Time with Patient: Less than 30
[2021-12-03 17:00] LABS: Glucose,Whole Blood 119 mg/dL (70-110)
[2021-12-03] MEDS: TAMSULOSIN 0.4 MG CAP.ER.24H PO SCH (17:55)
[2021-12-03 20:12] LABS: Glucose,Whole Blood 214 mg/dL (70-110)
[2021-12-03] MEDS: INSULIN DETEMIR (LEVEMIR) 100 UNIT/ML SYR SQ SCH (21:11)
[2021-12-03] MEDS: CLOPIDOGREL 75 MG TAB PO SCH (21:11)
[2021-12-03] MEDS: QUEtiapine 25 MG TAB PO SCH (21:12)
[2021-12-03] MEDS: ATORVASTATIN 20 MG TAB PO SCH (21:13)
[2021-12-04] MEDS: CIPROFLOXACIN 0.3% OPHTH SOLN 5 ML BTL BOTH EYES SCH ×6 (07:11→19:51)
[2021-12-04] MEDS: INSULIN ASPART (NovoLOG) 100 UNIT/ML VIAL SQ SCH ×5 (07:11→20:34)
[2021-12-04 07:29] LABS: Glucose,Whole Blood 62 mg/dL (70-110)
[2021-12-04 07:33] LABS: Glucose,Whole Blood 65 mg/dL (70-110)
[2021-12-04] MEDS ORDERED: DEXTROSE 50% SYRINGE 50 ML IVP ONE ×2 (07:35→07:36)
[2021-12-04 07:53] LABS: Glucose,Whole Blood 183 mg/dL (70-110)
[2021-12-04] MEDS: CYANOCOBALAMIN 500 MCG TAB PO SCH (09:19)
[2021-12-04] MEDS: MEMANTINE 5 MG TAB PO SCH ×2 (09:19→19:49)
[2021-12-04] MEDS: FAMOTIDINE 20 MG/2 ML VIAL IV SCH ×2 (09:20→19:49)
[2021-12-04] MEDS: LOSARTAN 50 MG TAB PO SCH (09:20)
[2021-12-04] MEDS: HEPARIN SODIUM,PORCINE/PF 5,000 UNIT/0.5 ML SYRINGE SQ SCH ×2 (09:20→19:49)
[2021-12-04] MEDS: METOPROLOL TARTRATE 25 MG TAB PO SCH ×2 (09:27→19:51)
[2021-12-04 12:01] LABS: Glucose,Whole Blood 111 mg/dL (70-110)
--- NOTE | 2021-12-04 12:47 | P.DS ---
Providers Date of admission: 11/22/21 12:49 Attending physician: Kia Currie MD Consults: 11/22/21 12:41 Consult Physician Routine Consulting Provider: Jesús Woo Consult Reason/Comments: ams Do you want consulting provider notified?: Already Contacted Consult Physician Routine Consulting Provider: Christo Montalvo Consult Reason/Comments: history of seroquel use Do you want consulting provider notified?: Yes 11/22/21 15:34 Consult Physician Routine Consulting Provider: Black Levin Consult Reason/Comments: canal stenosis per cervical CT reported but I feel not significant Do you want consulting provider notified?: Yes 11/26/21 19:29 Consult Physician Routine Consulting Provider: Ranjeet Sandoval Consult Reason/Comments: uti Do you want consulting provider notified?: Yes, Notify in am Primary care physician: Physician Nonstaff Hospital Course: Diagnoses: Metabolic and toxic encephalopathy, multifactorial for example due to medication effect, low vitamin B12, hypoglycemia, urinary retention. Hypoglycemia, improved related to her diabetes mellitus and erratic eating habits. urinary retention with mild right hydronephrosis, with normal kidney function. Status post Moore catheter and Flomax Possible Acute urinary tract infection, continue with short course of antibiotics upon discharge Alzheimer dementia with behavioral problems. Diabetes mellitus with hypoglycemia Low vitamin B12 C5-C6 spinal stenosis with right upper extremity/shoulder pain and no weakness Generalized weakness hospital course 81-year-old female. History of present illness obtained from daughter was at the bedside. Patient is unable to provide history present illness. Patient arrived to ER via EMS. From home. Patient was brought to the ER for several days of lethargy and difficulty to arouse. Patient was found to have multiple problems, she was found to have on multiple medications like Haldol and her dose of Seroquel. Patient has been evaluated by neurologist and psychiatrist. Her medication were adjusted however it's okay by psychiatrist for the patient to have Seroquel 25-50 mg daily currently she is on 12.5 mg at bedtime and besides 25 mg daily when necessary. Also patient has evidence of urinary retention, about a liter of urine was drained out. Moore catheter placed and patient was started on Flomax. Her UTI was treated per ID team with aztreonam, later on changed to ceftriaxone and patient can be discharged on short course of oral Ceftin per ID team. On admission she was on Levemir insulin 7 units at bedtime and 5 units of NovoLog with meals. This was held and placed on linagliptin 5 mg daily and her sugar was controlled on ISS. 3 days ago this regiment of insulin and linagliptin was held and switched into Levemir 12 units at bedtime and NovoLog 5 units with meals and her sugar was low this morning and 62, improved 183 and 111. Patient mentation is at baseline now. Patient did not eat well last night which may be contributing factor. Currently we stopped her Levemir. We stopped her scheduled NovoLog, She is kept only on insulin sliding scale. Patient can be discharged to rehab with close glucose monitoring. If glucose could be elevated later on then linagliptin on small dose of insulin Levemir can be added Hemoglobin A1c was low 6.1% I talked to the patient daughter who is legal guardian ms javier at [phone] and discussed the case with her, she thinks her mother is at baseline and she wants her to be discharged to rehab as sooner rather than later. I discussed problems and management plan with her and she is agreeable. Patient today is awake, she follows commands. She looks little lethargic. She answers questions with a Malian language, she has to be reminded to speak Portuguese. She speaks little Portuguese. She denies chest pain or dyspnea. No abdominal pain. No vomiting or diarrhea. No fever. Patient was cleared for discharge by all consultants including neurologist, psychiatrist, infectious disease team as well as orthopedic team. Patient was found stable and can be discharged to [facility] in guarded prognosis however he needs follow-up as an outpatient. Patient was instructed to follow up with PCP Dr. Oliver within one week and patient agrees Patient and daughter were instructed to follow up with urologist Dr. Ortiz in 1- 2 weeks after discharge and they agree as well as with Dr. Levin 1-2 weeks Physical exam -Gen: patient is a awake alert, follows commands, little lethargic, no distress, patient is forgetfull. Generally weak CVS: S1-S2, RRR, no murmur Lungs: B/L CTA, no wheezing -Abdomen: soft, no distention, no tenderness, positive bowel sounds. Moore catheter in place with the urine is yellow in color Extremity: no leg edema or induration Time spent more than 35 minutes Patient Condition at Discharge: Fair Plan - Discharge Summary Discharge Rx Participant: No New Discharge Prescriptions: New Ciprofloxacin Ophth Soln [Ciloxan 0.3% Ophth Soln] 2 drops BOTH EYES Q4HR ml Acetaminophen Tab [Tylenol] 650 mg PO Q6HR PRN tab PRN Reason: Mild Pain Or Fever > 100.5 Cyanocobalamin [Vitamin B-12] 1,000 mcg PO DAILY tab Docusate [Colace] 100 mg PO DAILY #2 capsule Tamsulosin [Flomax] 0.4 mg PO PC-SUPPER cap Sennosides [Senokot] 8.6 mg PO BID PRN tab PRN Reason: Constipation QUEtiapine FUMARATE [SEROquel] 25 mg PO HS PRN #3 tablet PRN Reason: Insomnia Atorvastatin [Lipitor] 20 mg PO HS tab Clopidogrel [Plavix] 75 mg PO HS tab QUEtiapine [SEROquel] 25 mg PO DAILY PRN #3 tab PRN Reason: Agitation Cefdinir [Omnicef] 300 mg PO Q12HR 3 Days #6 capsule Continue Potassium Gluconate [Potassium Gluconate ER] 99 mg PO DAILY Metoprolol Tartrate [Lopressor] 25 mg PO BID Memantine HCl [Memantine HCl ER] 21 mg PO HS Insulin Glargine,Hum.rec.anlog [Lantus Solostar Pen] 7 units SQ HS sitaGLIPtin [Januvia] 100 mg PO HS QUEtiapine FUMARATE [SEROquel] 25 mg PO HS #30 tab Changed Losartan Potassium [Cozaar] 50 mg PO DAILY #2 tab Discontinued QUEtiapine [SEROquel] 50 mg PO HS metFORMIN HCL [Glucophage] 1,000 mg PO BID Discharge Medication List Insulin Glargine,Hum.rec.anlog [Lantus Solostar Pen] 7 units SQ HS 11/22/21 [History] Memantine HCl [Memantine HCl ER] 21 mg PO HS 11/22/21 [History] Metoprolol Tartrate [Lopressor] 25 mg PO BID 11/22/21 [History] Potassium Gluconate [Potassium Gluconate ER] 99 mg PO DAILY 11/22/21 [History] sitaGLIPtin [Januvia] 100 mg PO HS 11/22/21 [History] Acetaminophen Tab [Tylenol] 650 mg PO Q6HR PRN tab 11/26/21 [Rx] Atorvastatin [Lipitor] 20 mg PO HS tab 11/26/21 [Rx] Ciprofloxacin Ophth Soln [Ciloxan 0.3% Ophth Soln] 2 drops BOTH EYES Q4HR ml 11/26/21 [Rx] Clopidogrel [Plavix] 75 mg PO HS tab 11/26/21 [Rx] Cyanocobalamin [Vitamin B-12] 1,000 mcg PO DAILY tab 11/26/21 [Rx] QUEtiapine FUMARATE [SEROquel] 25 mg PO HS #30 tab 11/26/21 [Rx] Cefdinir [Omnicef] 300 mg PO Q12HR 3 Days #6 capsule 12/02/21 [Rx] Docusate [Colace] 100 mg PO DAILY #2 capsule 12/02/21 [Rx] Losartan Potassium [Cozaar] 50 mg PO DAILY #2 tab 12/02/21 [Rx] QUEtiapine FUMARATE [SEROquel] 25 mg PO HS PRN #3 tablet 12/02/21 [Rx] QUEtiapine [SEROquel] 25 mg PO DAILY PRN #3 tab 12/02/21 [Rx] Sennosides [Senokot] 8.6 mg PO BID PRN tab 12/02/21 [Rx] Tamsulosin [Flomax] 0.4 mg PO PC-SUPPER cap 12/02/21 [Rx] Follow up Appointment(s)/Referral(s): Jone Oliver MD [STAFF PHYSICIAN] - 1-2 Days Nonstaff,Physician [Primary Care Provider] - 1-2 days Black Levin DO [Doctor of Osteopathic Medicine] - 1 Week Titus Urena MD [STAFF PHYSICIAN] - 1 Week (Urologist, kidney doctor, for your urine retention) Ambulatory/Diagnostic Orders: Basic Metabolic Panel [LAB.AMB] Time Frame: 2 Days, Location: None Selected Complete Blood Count w/diff [LAB.AMB] Time Frame: 2 Days, Location: None Selected Magnesium [LAB.AMB] Time Frame: 2 Days, Location: None Selected Activity/Diet/Wound Care/Special Instructions: Discharge to [facility] with indwelling catheter Follow up urology outpatient Repeat labs in 2 to 3 days Patient is being sent on seroquel 25 mg PO at bedtime with an additional 25 mg PO ordered as needed for agitation/insomnia. Patient also has 25 mg PO seroquel ordered daily as needed for agitation Continue oral cefdinir 300 mg every 12 hours for 3 more days. Discharge Disposition: TRANSFER TO SNF/ECF
[2021-12-04 17:00] LABS: Glucose,Whole Blood 314 mg/dL (70-110)
[2021-12-04] MEDS: TAMSULOSIN 0.4 MG CAP.ER.24H PO SCH (17:43)
[2021-12-04] MEDS: ATORVASTATIN 20 MG TAB PO SCH (19:49)
[2021-12-04] MEDS: QUEtiapine 25 MG TAB PO SCH (19:50)
[2021-12-04] MEDS: CLOPIDOGREL 75 MG TAB PO SCH (19:51)
[2021-12-04 20:29] LABS: Glucose,Whole Blood 355 mg/dL (70-110)
[2021-12-05] MEDS: CIPROFLOXACIN 0.3% OPHTH SOLN 5 ML BTL BOTH EYES SCH ×6 (00:46→21:38)
[2021-12-05 07:07] LABS: Glucose,Whole Blood 182 mg/dL (70-110)
[2021-12-05] MEDS: METOPROLOL TARTRATE 25 MG TAB PO SCH ×2 (08:09→21:50)
[2021-12-05] MEDS: INSULIN ASPART (NovoLOG) 100 UNIT/ML VIAL SQ SCH ×4 (08:09→21:52)
[2021-12-05] MEDS: LOSARTAN 50 MG TAB PO SCH (08:09)
[2021-12-05] MEDS: MEMANTINE 5 MG TAB PO SCH ×2 (08:09→21:52)
[2021-12-05] MEDS: CYANOCOBALAMIN 500 MCG TAB PO SCH (08:09)
[2021-12-05] MEDS: HEPARIN SODIUM,PORCINE/PF 5,000 UNIT/0.5 ML SYRINGE SQ SCH ×2 (08:10→21:53)
[2021-12-05] MEDS: FAMOTIDINE 20 MG/2 ML VIAL IV SCH ×2 (08:10→21:49)
--- NOTE | 2021-12-05 10:57 | P.CONS ---
History of Present Illness - Chief Complaint Gait disturbance, right hemiparesthesias - History of Present Illness I had the opportunity to see patient for inpatient rehab consultation with regard to gait disturbance. Patient admitted to [facility] November 22 with history of dementia and some mild agitation. She was found to be lethargic mental status change lasting a perhaps several days. Admitted to Dr. Spears. Seen by neurology, Dr. Jesús Rodriguez. Also seen by orthopedics due to C5/6 stenosis which did not appear to be significant require operation at this time. Also seen by psychiatry. Seen by Dr. Sandoval for UTI. Noted discharge summary has already been dictated. Diagnostic tests: Chest x-ray with atelectasis versus bronchiectasia. C-spine CT with hypertrophic change C5/6 and possible herniation C3. Head CT nonspecific bilateral basal ganglia attenuation. Angiogram CT demonstrates mild plaques right and left common carotid. Right humeral and shoulder x-ray demonstrates possible rotator cuff calcific tendinitis. Right forearm x-ray negative. Brain MRI with nonspecific white matter change. Renal ultrasound mild right hydronephrosis and nonvisualized left kidney. Abdominal x-ray with much feces. His started therapy. PT reports two-person total assistance bed mobility and transfer. Endurance and balance poor. OT reports minimal assistance for feeding and total assistance for grooming, upper/lower dressing and bathing. Two-person total assistance for toileting and toilet transfers. Speech therapy prescribed. Previous functional history unobtainable from patient and appears related to language barrier. Patient appears to speak only Czech. Review of Systems Review of systems: As gleaned from chart and from my physical exam. ENT: Denies sneezes or discharge. Eyes: Denies discharge or photophobia. Cardiac: Denies chest pain or palpitation. Pulmonary: Denies cough or shortness of breath. Breast: Denies discharge or lumps. Gastrointestinal: Denies nausea, emesis, constipation, diarrhea. Genitourinary: Denies discharge or frequency. Musculoskeletal: Denies muscle or bone aches. Neurologic: Right-sided weakness and numbness. Endocrine: Denies shakes or sweats. Oncology: Denies cancers. Dermatologic: Denies rash, itching, pruritus. ALLERGY/immunology: Denies sneezes, rashes. Past Medical History Past Medical History: Dementia, Diabetes Mellitus, GERD/Reflux, Hypertension Additional Past Medical History / Comment(s): IDDM type II, neuropathy bilateral hand/feet, diverticular disease, past gastric ulcer with surgical repair, benign colon polyps, arthritis R arm/wrist. History of Any Multi-Drug Resistant Organisms: None Reported Past Surgical History: Hysterectomy Additional Past Surgical History / Comment(s): Laparotomy for stomach ulcer repair, colonoscopies, bilateral cataract removals/lens implants. Past Anesthesia/Blood Transfusion Reactions: No Reported Reaction Additional Past Anesthesia/Blood Transfusion Reaction / Comm: Pt has received blood in past without reaction. Past Psychological History: No Psychological Hx Reported Additional Psychological History / Comment(s): Pt resides in [place] with her son, Roger, who is her caregiver. She is her staying with her morgan and son in law for christyle over a week. Pt has dementia. 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 She now only speaks Czech. She ambulates with a wheeled walker. She is continent of urine and stool. She normally can feed herself. Family manages her medications. She can swallow pills but family call her pills her vitamins or she will get suspicious and not take them. Family wash and dress patient. Smoking Status: Never smoker Past Alcohol Use History: Rare Past Drug Use History: None Reported - Past Family History Father Family Medical History: No Reported History Additional Family Medical History / Comment(s): Father lived to be 81 yrs old. Mother Family Medical History: No Reported History Additional Family Medical History / Comment(s): Pt ls mother is 102 years old. Medications and Allergies Home Medications Medication Instructions Recorded Confirmed Type Memantine HCl [Memantine HCl ER] 21 mg PO HS 11/22/21 11/22/21 History Metoprolol Tartrate [Lopressor] 25 mg PO BID 11/22/21 11/22/21 History Potassium Gluconate [Potassium 99 mg PO DAILY 11/22/21 11/22/21 History Gluconate ER] Acetaminophen Tab [Tylenol] 650 mg PO Q6HR PRN tab 11/26/21 Rx Atorvastatin [Lipitor] 20 mg PO HS tab 11/26/21 Rx Ciprofloxacin Ophth Soln [Ciloxan 2 drops BOTH EYES Q4HR ml 11/26/21 Rx 0.3% Ophth Soln] Clopidogrel [Plavix] 75 mg PO HS tab 11/26/21 Rx Cyanocobalamin [Vitamin B-12] 1,000 mcg PO DAILY tab 11/26/21 Rx Cefdinir [Omnicef] 300 mg PO Q12HR 3 Days #6 capsule 12/02/21 Rx Docusate [Colace] 100 mg PO DAILY #2 capsule 12/02/21 Rx Sennosides [Senokot] 8.6 mg PO BID PRN tab 12/02/21 Rx Tamsulosin [Flomax] 0.4 mg PO PC-SUPPER cap 12/02/21 Rx INSULIN ASPART (NovoLOG) [NovoLOG 0 unit SQ ACHS each 12/04/21 Rx (formulary)] Losartan [Cozaar] 100 mg PO DAILY tab 12/04/21 Rx QUEtiapine [SEROquel] 12.5 mg PO HS #15 tab 12/04/21 Rx QUEtiapine [SEROquel] 25 mg PO DAILY PRN #3 tab 12/04/21 Rx Allergies Allergy/AdvReac Type Severity Reaction Status Date / Time codeine Allergy Itching Verified 11/25/21 17:24 NSAIDS (Non-Steroidal Allergy Anaphylaxis Verified 11/25/21 17:24 Anti-Inflamma Penicillins Allergy Anaphylaxis Verified 11/22/21 13:51 Physical Exam Vitals: Vital Signs Temp Pulse Resp BP Pulse Ox 12/05/21 02:07 98.3 F 83 16 170/80 97 12/04/21 22:28 98 F 98 17 149/73 97 12/04/21 20:00 98.3 F 102 H 18 146/68 98 12/04/21 16:00 98.0 F 84 18 134/80 96 12/04/21 14:00 18 12/04/21 12:00 98.0 F 84 18 130/79 97 Intake and Output 12/04/21 12/05/21 12/05/21 22:59 06:59 14:59 Intake Total 118 Balance 118 Intake: Oral 118 Other: Voiding Method Indwelling Catheter Indwelling Catheter Results CBC & Chem 7: 11/29/21 10:41 11/30/21 11:02 Labs: Abnormal Lab Results - Last 24 Hours (Table) 12/04/21 12/04/21 12/04/21 Range/Units 11:57 16:57 20:27 POC Glucose (mg/dL) 111 H 314 H 355 H (70-110) mg/dL 12/05/21 Range/Units 07:05 POC Glucose (mg/dL) 182 H (70-110) mg/dL Assessment and Plan (1) Lethargy Current Visit: Yes Status: Acute Code(s): R53.83 - OTHER FATIGUE SNOMED Code(s): 187554703 (2) Urinary tract infection Current Visit: Yes Status: Acute Code(s): N39.0 - URINARY TRACT INFECTION, SITE NOT SPECIFIED SNOMED Code(s): 87587452 Plan: Comments and plan: Per my exam patient appears also have some right-sided weakness compared to left side. History and physical however limited by language barrier. At this time patient appears to have poor endurance and would not be able tolerate a full inpatient rehab program. If this improves, would also have to consider the language barrier.
[2021-12-05 12:13] LABS: Glucose,Whole Blood 225 mg/dL (70-110)
[2021-12-05 16:49] LABS: Glucose,Whole Blood 277 mg/dL (70-110)
[2021-12-05] MEDS: TAMSULOSIN 0.4 MG CAP.ER.24H PO SCH (17:06)
--- NOTE | 2021-12-05 19:01 | P.PN ---
Subjective 81-year-old female. History of present illness obtained from daughter was at the bedside. Patient is unable to provide history present illness. Patient arrived to ER via EMS. From home. Patient was brought to the ER for several days of lethargy and difficulty to arouse. She also has a new onset left facial droop. Patient has history of dementia normally resides in [place] however staying with a daughter. Daughter states that her symptoms began over the last 2-3 days. At first she was little lethargic however now she is difficult to arouse. Chemistry panel seems unremarkable except for the magnesium which is 1.1. TSH is 0.585. Urinalysis negative urinary tract infection. Urine drug screen is positive for tricyclic and benzo however the rest is nondetected. CT of the head is reported as no acute intracranial hemorrhage, mass effect or midline shift is seen. Degenerative nonspecific white matter changes. Of concern for acute ischemic orally with MRI. Personally reviewed the CT of the head and I agree report. I also feel the patient has generalized atrophy was is appropriate for age. CT of cervical spine was reported as there is no acute fracture or dislocation evident in the cervical spine. Multilevel degenerative changes and facet arthropathy with suspected canal stenosis C5-C6 and bilateral foraminal encroachment. Possible sagittal disc protrusion or herniation C3-C4. MRI recommended 12/05/2021 Patient is been treated for altered mental status secondary to medication overdose and other medical problems including UTI and urinary retention on the top of her dementia. Patient is mentation improved today after holding her insulin secondary to hypoglycemia. Currently kept only on insulin sliding scale and she requires between 1-3 units of extra coverage based on ISS. We recommend to keep holding diabetes medication as patient diet is none consistent with a glucose level. Patient remains on ceftriaxone. Patient is medically stable for discharge pending placement I discussed the case with social media campaign manager/cyanide case hardener today. Patient has [place] insurance because she was visiting only, her insurance does not cover her in [facility]. Daughter today was thinking to take her home with amber cabral, I called the daughter and the legal guardian Francheska and left a message to call back. Objective - Vital Signs Vital signs: Vital Signs Temp 98.3 F 12/05/21 02:07 Pulse 83 12/05/21 02:07 Resp 16 12/05/21 02:07 BP 170/80 12/05/21 02:07 Pulse Ox 97 12/05/21 02:07 FiO2 Intake & Output 12/04/21 12/05/21 12/05/21 18:59 06:59 18:59 Intake Total 236 Output Total 390 Balance -154 Intake: Oral 236 Output: Urine 390 Other: Voiding Method Indwelling Catheter Indwelling Catheter Indwelling Catheter - Exam -GENERAL: The patient is awake, confused, follows commands, got agitation at times HEENT: Pupils are round and equally reacting to light. EOMI. No scleral icterus. No conjunctival pallor. Normocephalic, atraumatic. No pharyngeal erythema. No thyromegaly. CARDIOVASCULAR: S1 and S2 present. No murmurs, rubs, or gallops. PULMONARY: Chest is clear to auscultation, no wheezing or crackles. ABDOMEN: Soft, nontender, nondistended, normoactive bowel sounds. No palpable organomegaly. MUSCULOSKELETAL: No joint swelling or deformity. EXTREMITIES: No cyanosis, clubbing, or pedal edema. NEUROLOGICAL: Gross neurological examination did not reveal any focal deficits. SKIN: No rashes. no petechiae. - Labs CBC & Chem 7: 11/29/21 10:41 11/30/21 11:02 Labs: Abnormal Lab Results - Last 24 Hours (Table) 12/04/21 12/04/21 12/04/21 Range/Units 11:57 16:57 20:27 POC Glucose (mg/dL) 111 H 314 H 355 H (70-110) mg/dL 12/05/21 Range/Units 07:05 POC Glucose (mg/dL) 182 H (70-110) mg/dL Assessment and Plan Assessment: Metabolic and toxic encephalopathy, multifactorial for example due to medication effect, low vitamin B12, hyperglycemia, improved Hypoglycemia, improved related to her diabetes mellitus Mild urinary retention with right hydronephrosis, with normal kidney function. Possible Acute urinary tract infection, felt less likely. Pending urine culture Altered mental status with metabolic/toxic encephalopathy secondary to medication effect Alzheimer dementia with behavioral problems. Diabetes mellitus with hyperglycemia Low vitamin B12 C5-C6 spinal stenosis with right upper extremity/shoulder pain and no weakness Generalized weakness Plan: this is a pleasant 81 years old female with metabolic encephalopathy secondary to medication Continue with ceftriaxone with ID team and to push total antibiotic upon d ischarge Start continue Moore catheter and continue Flomax. Follow-up with urologist as an outpatient Hold all diabetes medication continue with insulin sliding scale to avoid episodes of hypoglycemia hospital tray service worker on the case for placement Neurology service signed off the case Orthopedic and psych service is already signed off Labs and medication were reviewed.. Continue same treatment. Continue with symptomatic treatment. Resume home medication. Monitor lytes and vitals. DVT and GI prophylaxis. Further recommendations as per clinical course of the patient DVT prophylaxis: Subcutaneous heparin GI Prophylaxis: Pepcid PT/OT: Patient may benefit from DARCY, however patient has difficulty duct and acceptance because of her [place] insurance Long-term prognosis still guarded
[2021-12-05 20:20] LABS: Glucose,Whole Blood 205 mg/dL (70-110)
[2021-12-05] MEDS: ATORVASTATIN 20 MG TAB PO SCH (21:50)
[2021-12-05] MEDS: QUEtiapine 25 MG TAB PO SCH (21:50)
[2021-12-05] MEDS: CLOPIDOGREL 75 MG TAB PO SCH (21:52)
[2021-12-05] MEDS: INSULIN DETEMIR (LEVEMIR) 100 UNIT/ML SYR SQ SCH (21:55)
[2021-12-06] MEDS: CIPROFLOXACIN 0.3% OPHTH SOLN 5 ML BTL BOTH EYES SCH ×6 (00:25→22:11)
[2021-12-06 07:16] LABS: Glucose,Whole Blood 135 mg/dL (70-110)
[2021-12-06] MEDS: INSULIN ASPART (NovoLOG) 100 UNIT/ML VIAL SQ SCH ×4 (07:35→21:59)
[2021-12-06] MEDS: MEMANTINE 5 MG TAB PO SCH ×2 (08:03→21:58)
[2021-12-06] MEDS: FAMOTIDINE 20 MG/2 ML VIAL IV SCH ×2 (08:03→22:00)
[2021-12-06] MEDS: LOSARTAN 50 MG TAB PO SCH (08:03)
[2021-12-06] MEDS: METOPROLOL TARTRATE 25 MG TAB PO SCH ×2 (08:03→22:00)
[2021-12-06] MEDS: CYANOCOBALAMIN 500 MCG TAB PO SCH (08:03)
[2021-12-06] MEDS: HEPARIN SODIUM,PORCINE/PF 5,000 UNIT/0.5 ML SYRINGE SQ SCH ×2 (08:03→21:59)
--- NOTE | 2021-12-06 08:48 | P.PN ---
Subjective Progress Note Date: 12/03/21 Principal diagnosis: Urinary tract infection Patient is a 81-year-old female presenting to the hospital with weakness and lethargy with initial workup for possible CVA and she did have a negative UA on admission subsequently positive UA concerning for a cath associated UTI in this patient with a penicillin ALLERGY. On today's evaluation that is 12/03/2021, the patient remains to be afebrile, the patient is breathing comfortable on room air, the patient denies chest pain, shortness of breath or cough, the patient denies abdominal pain no diarrhea , no new symptoms Objective - Vital Signs Vital signs: Vital Signs Temp 98.3 F 12/03/21 08:00 Pulse 78 12/03/21 08:00 Resp 16 12/03/21 08:00 BP 156/81 12/03/21 08:00 Pulse Ox 97 12/03/21 08:00 FiO2 Intake & Output 12/02/21 12/03/21 12/03/21 18:59 06:59 18:59 Intake Total 0 Output Total 250 300 Balance -250 -300 Weight 53.7 kg Intake: Oral 0 Output: Urine 250 300 Other: Voiding Method Indwelling Catheter Indwelling Catheter Indwelling Catheter - Exam GENERAL DESCRIPTION: An elderly female lying in bed in no distress RESPIRATORY SYSTEM: Unlabored breathing , decreased breath sounds at bases HEART: S1 S2 regular rate and rhythm , ABDOMEN: Soft , no tenderness EXTREMITIES: No edema feet - Labs CBC & Chem 7: 11/29/21 10:41 11/30/21 11:02 Labs: Abnormal Lab Results - Last 24 Hours (Table) 12/02/21 12/02/21 12/03/21 Range/Units 16:32 20:05 11:41 POC Glucose (mg/dL) 147 H 242 H 184 H (70-110) mg/dL Assessment and Plan (1) Urinary tract infection Current Visit: Yes Status: Acute Code(s): N39.0 - URINARY TRACT INFECTION, SITE NOT SPECIFIED SNOMED Code(s): 80735312 Plan: 1patient with significantly positive UA in this patient initial presentation to the hospital with mental status changes and initial concern for CVA however the patient did have work-up including CT and MRI that has been negative patient did have a normal UA on admission and subsequently was significantly positive UA with concern for possible catheter associated UTI. 2penicillin allergy that would limit the number of antibiotics safe to use. However the patient has tolerated Omnicef without any problems urine culture with staph epi oxacillin sensitive on Rocephin , which will be continued as the patient's symptoms refusing oral medications Time with Patient: Less than 30
--- NOTE | 2021-12-06 08:49 | P.PN ---
Subjective Progress Note Date: 12/04/21 Principal diagnosis: Urinary tract infection Patient is a 81-year-old female presenting to the hospital with weakness and lethargy with initial workup for possible CVA and she did have a negative UA on admission subsequently positive UA concerning for a cath associated UTI in this patient with a penicillin ALLERGY. On today's evaluation that is 12/04/2021, the patient continues to be afebrile, the patient is breathing comfortable on room air, the patient denies chest pain, shortness of breath or cough, the patient denies abdominal pain no diarrhea , patient mentioned feeling better Objective - Vital Signs Vital signs: Vital Signs Temp 98.1 F 12/04/21 08:08 Pulse 90 12/04/21 08:08 Resp 18 12/04/21 08:08 BP 133/71 12/04/21 08:08 Pulse Ox 98 12/04/21 08:08 FiO2 Intake & Output 12/03/21 12/04/21 12/04/21 18:59 06:59 18:59 Intake Total 120 100 118 Output Total 300 800 390 Balance -180 -700 -272 Intake: IV 0 0.9 0 Oral 120 100 118 Output: Urine 300 800 390 Uretheral (Moore) 300 Other: Voiding Method Indwelling Catheter Indwelling Catheter Indwelling Catheter - Exam GENERAL DESCRIPTION: An elderly female lying in bed in no distress RESPIRATORY SYSTEM: Unlabored breathing , decreased breath sounds at bases HEART: S1 S2 regular rate and rhythm , ABDOMEN: Soft , no tenderness EXTREMITIES: No edema feet - Labs CBC & Chem 7: 11/29/21 10:41 11/30/21 11:02 Labs: Abnormal Lab Results - Last 24 Hours (Table) 12/03/21 12/03/21 12/03/21 Range/Units 11:41 16:58 20:08 POC Glucose (mg/dL) 184 H 119 H 214 H (70-110) mg/dL 12/04/21 12/04/21 12/04/21 Range/Units 07:09 07:30 07:50 POC Glucose (mg/dL) 62 L 65 L 183 H (70-110) mg/dL Assessment and Plan (1) Urinary tract infection Current Visit: Yes Status: Acute Code(s): N39.0 - URINARY TRACT INFECTION, SITE NOT SPECIFIED SNOMED Code(s): 67750108 Plan: 1patient with significantly positive UA in this patient initial presentation to the hospital with mental status changes and initial concern for CVA however the patient did have work-up including CT and MRI that has been negative patient did have a normal UA on admission and subsequently was significantly positive UA with concern for possible catheter associated UTI. 2penicillin allergy that would limit the number of antibiotics safe to use. However the patient has tolerated Omnicef without any problems 3-the patient urine culture with staph epi oxacillin sensitive to Rocephin , Rocephin will be continued as the patient refusing oral medications per the nursing staff Time with Patient: Less than 30
--- NOTE | 2021-12-06 08:50 | P.PN ---
Subjective Progress Note Date: 12/05/21 Principal diagnosis: Urinary tract infection Patient is a 81-year-old female presenting to the hospital with weakness and lethargy with initial workup for possible CVA and she did have a negative UA on admission subsequently positive UA concerning for a cath associated UTI in this patient with a penicillin ALLERGY. On today's evaluation that is 12/05/2021, the patient denies any fever or any chills, the patient is breathing comfortable on room air, the patient denies chest pain, shortness of breath or cough, the patient denies abdominal pain no diarrhea , no new symptoms Objective - Vital Signs Vital signs: Vital Signs Temp 98.3 F 12/05/21 02:07 Pulse 83 12/05/21 02:07 Resp 16 12/05/21 02:07 BP 170/80 12/05/21 02:07 Pulse Ox 97 12/05/21 02:07 FiO2 Intake & Output 12/04/21 12/05/21 12/05/21 18:59 06:59 18:59 Intake Total 236 Output Total 390 Balance -154 Intake: Oral 236 Output: Urine 390 Other: Voiding Method Indwelling Catheter Indwelling Catheter Indwelling Catheter - Exam GENERAL DESCRIPTION: An elderly female lying in bed in no distress RESPIRATORY SYSTEM: Unlabored breathing , decreased breath sounds at bases HEART: S1 S2 regular rate and rhythm , ABDOMEN: Soft , no tenderness EXTREMITIES: No edema feet - Labs CBC & Chem 7: 11/29/21 10:41 11/30/21 11:02 Labs: Abnormal Lab Results - Last 24 Hours (Table) 12/04/21 12/04/21 12/04/21 Range/Units 11:57 16:57 20:27 POC Glucose (mg/dL) 111 H 314 H 355 H (70-110) mg/dL 12/05/21 Range/Units 07:05 POC Glucose (mg/dL) 182 H (70-110) mg/dL Assessment and Plan (1) Urinary tract infection Current Visit: Yes Status: Acute Code(s): N39.0 - URINARY TRACT INFECTION, SITE NOT SPECIFIED SNOMED Code(s): 89349735 Plan: 1patient with significantly positive UA in this patient initial presentation to the hospital with mental status changes and initial concern for CVA however the patient did have work-up including CT and MRI that has been negative patient did have a normal UA on admission and subsequently was significantly positive UA with concern for possible catheter associated UTI. 2penicillin allergy that would limit the number of antibiotics safe to use. However the patient has tolerated Omnicef without any problems 3-the patient urine culture with staph epi oxacillin sensitive to Rocephin , patient has received adequate antibiotic therapy while inpatient and Rocephin can be discontinued on discharge Time with Patient: Less than 30
[2021-12-06 12:15] LABS: Glucose,Whole Blood 230 mg/dL (70-110)
--- NOTE | 2021-12-06 15:02 | P.PN ---
Subjective Progress Note Date: 12/06/21 Principal diagnosis: Urinary tract infection Patient is a 81-year-old female presenting to the hospital with weakness and lethargy with initial workup for possible CVA and she did have a negative UA on admission subsequently positive UA concerning for a cath associated UTI in this patient with a penicillin ALLERGY. On today's evaluation that is 12/06/2021, the patient remains to be afebrile, the patient is breathing comfortable on room air, the patient denies chest pain, shortness of breath or cough, the patient denies abdominal pain and no diarrhea has been reported by the nursing staff Objective - Vital Signs Vital signs: Vital Signs Temp 98.5 F 12/06/21 14:04 Pulse 98 12/06/21 14:04 Resp 16 12/06/21 14:04 BP 150/80 12/06/21 14:04 Pulse Ox 94 L 12/06/21 14:04 FiO2 Intake & Output 12/05/21 12/06/21 12/06/21 18:59 06:59 18:59 Output Total 800 375 Balance -800 -375 Weight 53.7 kg Output: Urine 800 375 Other: Voiding Method Indwelling Catheter Indwelling Catheter Indwelling Catheter # Bowel Movements 1 - Exam GENERAL DESCRIPTION: An elderly female lying in bed in no distress RESPIRATORY SYSTEM: Unlabored breathing , decreased breath sounds at bases HEART: S1 S2 regular rate and rhythm , ABDOMEN: Soft , no tenderness EXTREMITIES: No edema feet - Labs CBC & Chem 7: 11/29/21 10:41 11/30/21 11:02 Labs: Abnormal Lab Results - Last 24 Hours (Table) 12/05/21 12/05/21 12/06/21 Range/Units 16:47 20:19 07:14 POC Glucose (mg/dL) 277 H 205 H 135 H (70-110) mg/dL 12/06/21 Range/Units 12:14 POC Glucose (mg/dL) 230 H (70-110) mg/dL Assessment and Plan (1) Urinary tract infection Current Visit: Yes Status: Acute Code(s): N39.0 - URINARY TRACT INFECTION, SITE NOT SPECIFIED SNOMED Code(s): 16619364 Plan: 1patient with significantly positive UA in this patient initial presentation to the hospital with mental status changes and initial concern for CVA however the patient did have work-up including CT and MRI that has been negative patient did have a normal UA on admission and subsequently was significantly positive UA with concern for possible catheter associated UTI. 2penicillin allergy that would limit the number of antibiotics safe to use. However the patient has tolerated Omnicef without any problems 3-the patient urine culture with staph epi oxacillin sensitive to Rocephin , patient has received adequate antibiotic therapy with Rocephin and there is no need for any antibiotic on discharge Time with Patient: Less than 30
[2021-12-06 17:03] LABS: Glucose,Whole Blood 153 mg/dL (70-110)
--- NOTE | 2021-12-06 17:20 | P.PN ---
Subjective Progress Note Date: 12/06/21 This is an 81-year-old female presenting with lethargy undergoing neurological evaluation. Patient was found to have questionable urinalysis with positive nitrates 2, urine culture was positive for staphylococcus epidermidis. Infectious disease is following the patient and patient has been started on oral cefdinir today. Mentation continues to wax and wane, she does have history of dementia, hospital stay is most likely exacerbating this at times. She is being followed by neurology however MRI/CT brain has come back negative. Labs today showing sodium 137, potassium 3.7, magnesium 1.4 which patient will receive 3 bags of IV magnesium today. Remains afebrile, heart rate 80s, blood pressure 146/92, 98% room air. 12/01/2021 Patient evaluated today resting in bed. Per nurse her appetite has increased, she is eating about 50% of hospital meals and family is bringing in food that she is eating. Patient has not had a BM since the . Bowel sounds are more hypoactive today, no abdominal tenderness or distention noted. Abdominal xray was performed which shows large stool burden throughout the colon. Suppository will be given. Patient has been receiving senna daily as well. Magnesium today i s now 2.1. Blood glucose in the 200s today, insulin adjusted. Patient does use long acting at home. Plan for discharge to rehab tomorrow. 12/03/2021 Patient is evaluated today sitting up in bed. She is more awake and alert today, talkative. No facial asymmetry noted today. She denies pain, reports fair appetite. Continues with indwelling catheter. She did receive a dose of seroquel yesterday as thought patient was going to rehab however was not accepted to facility. She also received dose last night for bedtime and she did well. Adjustments were made for discharge after discussion with family. She continues on aspirin/plavix/lipitor for stroke prophylaxis. Pending accepting subacute rehab. Infectious disease recommended 3 more days of oral omnicef on discharge. 12/06/2021 Patient is evaluated today resting in bed. She is able to converse in south k[place] and appears well rested. She does state she is feeling well and states it is nice to converse in south korean. There was discussion of family requesting hospice consultation and attempted to call family with no answer. Family has not come to the hospital today. Per case management familys first choice is subacute rehab. She has psychiatric consultation in place for medical competency and family can than complete medicaid application on behalf of patient. Otherwise her current insurance does not cover subacute rehab. Patient has completed antibiotic therapy for acute UTI. Review of Systems Constitutional: Denied any fatigue denied any fever. Cardio vascular: denied any chest pain, palpitations Gastrointestinal: denied any nausea, vomiting, diarrhea Pulmonary: Denied any shortness of breath cough Neurologic denied any new focal deficits All inpatient medications were reviewed and appropriate changes in these medications as dictated in the interval history and assessment and plan. PHYSICAL EXAMINATION: GENERAL: The patient is alert and oriented x1-2, not in any acute distress. Well developed, well nourished. HEENT: Pupils are round and equally reacting to light. EOMI. No scleral icterus. No conjunctival pallor. Normocephalic, atraumatic. No pharyngeal erythema. No thyromegaly. CARDIOVASCULAR: S1 and S2 present. No murmurs, rubs, or gallops. PULMONARY: Chest is clear to auscultation, no wheezing or crackles. ABDOMEN: Soft, nontender, nondistended, hypoactive bowel sounds. No palpable organomegaly. Indwelling catheter in place MUSCULOSKELETAL: No joint swelling or deformity. EXTREMITIES: No cyanosis, clubbing, or pedal edema. NEUROLOGICAL: Gross neurological examination did not reveal any focal deficits. SKIN: No rashes. Assessment and plan Assessment Altered mental status with metabolic/toxic encephalopathy secondary to medication effect, improved Hypoglycemia, improved related to her diabetes mellitus with poor oral intake Mild urinary retention with right hydronephrosis, with normal kidney function. Possible Acute urinary tract infection, culture showing staphylococcus epidermidis completed antibiotic therapy Alzheimer dementia with behavioral problems. Diabetes mellitus with hyperglycemia Low vitamin B12 C5-C6 spinal stenosis with right upper extremity/shoulder pain and no weakness Generalized weakness GI Prophylaxis DVT Prophylaxis Full Code Plan Infectious disease consultation, completed antibiotic therapy while inpatient Continue to monitor glucose Seroquel adjustments made and patient tolerating well Continue on flomax, indwelling catheter in place and patient will follow up with urology outpatient Neurology service has signed off Continue on bowel regimen PT/OT Repeat labs in AM Discharge to subacute rehab, patient is pending insurance coverage and authorization Follow up with family tomorrow The impression and plan of care has been dictated by Dyan Parrish, Nurse Practitioner as directed. Dr. Suyapa MD I have performed a history and physical examination and medical decision making of this patient, discussed the same with the dictator, and agree with the dictators assessment and plan as written, documented as a scribe. Based on total visit time, I have performed more than 50% of this visit. Objective - Vital Signs Vital signs: Vital Signs Temp 98.5 F 12/06/21 14:04 Pulse 98 12/06/21 14:04 Resp 16 12/06/21 14:04 BP 150/80 12/06/21 14:04 Pulse Ox 94 L 12/06/21 14:04 FiO2 Intake & Output 12/05/21 12/06/21 12/06/21 18:59 06:59 18:59 Output Total 800 375 Balance -800 -375 Weight 53.7 kg Output: Urine 800 375 Other: Voiding Method Indwelling Catheter Indwelling Catheter Indwelling Catheter # Bowel Movements 1 - Labs CBC & Chem 7: 11/29/21 10:41 11/30/21 11:02 Labs: Abnormal Lab Results - Last 24 Hours (Table) 12/05/21 12/06/21 12/06/21 Range/Units 20:19 07:14 12:14 POC Glucose (mg/dL) 205 H 135 H 230 H (70-110) mg/dL 12/06/21 Range/Units 17:01 POC Glucose (mg/dL) 153 H (70-110) mg/dL Assessment and Plan Time with Patient: Less than 30
[2021-12-06 20:25] LABS: Glucose,Whole Blood 231 mg/dL (70-110)
[2021-12-06] MEDS: QUEtiapine 25 MG TAB PO SCH (21:57)
[2021-12-06] MEDS: ATORVASTATIN 20 MG TAB PO SCH (21:57)
[2021-12-06] MEDS: INSULIN DETEMIR (LEVEMIR) 100 UNIT/ML SYR SQ SCH (21:59)
[2021-12-06] MEDS: CLOPIDOGREL 75 MG TAB PO SCH (22:00)
[2021-12-06] MEDS: TAMSULOSIN 0.4 MG CAP.ER.24H PO SCH (23:21)
[2021-12-07] MEDS: CIPROFLOXACIN 0.3% OPHTH SOLN 5 ML BTL BOTH EYES SCH ×6 (06:50→22:05)
[2021-12-07 06:56] LABS: Glucose,Whole Blood 101 mg/dL (70-110)
[2021-12-07] MEDS: INSULIN ASPART (NovoLOG) 100 UNIT/ML VIAL SQ SCH ×4 (07:48→22:05)
[2021-12-07] MEDS: MEMANTINE 5 MG TAB PO SCH ×2 (07:59→21:55)
[2021-12-07] MEDS: LOSARTAN 50 MG TAB PO SCH (08:00)
[2021-12-07] MEDS: METOPROLOL TARTRATE 25 MG TAB PO SCH ×2 (08:00→21:55)
[2021-12-07] MEDS: CYANOCOBALAMIN 500 MCG TAB PO SCH (08:00)
[2021-12-07] MEDS: FAMOTIDINE 20 MG/2 ML VIAL IV SCH ×2 (08:01→22:26)
[2021-12-07] MEDS: HEPARIN SODIUM,PORCINE/PF 5,000 UNIT/0.5 ML SYRINGE SQ SCH ×2 (08:01→22:05)
[2021-12-07 11:19] LABS: Glucose,Whole Blood 108 mg/dL (70-110)
[2021-12-07 11:45] LABS: Basophils # (A) 0.06 X 10*3/uL (0.00-0.10); Basophils % (A) 0.6 %; Eosinophils # (A) 0.08 X 10*3/uL (0.04-0.35); Eosinophils % (A) 0.8 %; HCT 34.2 % (37.2-46.3); HGB 10.9 g/dL (12.0-15.0); Immature Grans, Automated 0.4 %; Lymphocytes # (A) 2.37 X 10*3/uL (0.90-5.00); Lymphocytes % (A) 24.9 %; MCH 29.5 pg (27.0-32.0); MCHC 31.9 g/dL (32.0-37.0); MCV 92.4 fL (80.0-97.0); Mean Platelet Volume 9.3 fL (9.5-12.2); Monocytes # (A) 0.59 X 10*3/uL (0.20-1.00); Monocytes % (A) 6.2 %; NRBC Per 100 WBC 0 /100 WBCS (0.0-0.0); Neutrophils # (A) 6.36 X 10*3/uL (1.80-7.70); Neutrophils % (A) 67.1 %; Platelet Count 411 X 10*3/uL (140-440); RDW 13.8 % (11.5-14.5)
[2021-12-07 11:50] LABS: African American GFR (CKD) 95.9 (60.0-200.0); Anion Gap 10.7 mmol/L (10.00-18.00); BUN/Creat Ratio 21.76 Ratio (12.00-20.00); Blood Urea Nitrogen 14.1 mg/dL (9.0-27.0); Calcium 9.8 mg/dL (8.7-10.3); Carbon Dioxide 30.1 mmol/L (20.0-27.5); Magnesium 1.8 mg/dL (1.5-2.4); Non-African American GFR(CKD) 82.8 (60.0-200.0); Potassium 3.4 mmol/L (3.5-5.5)
[2021-12-07] MEDS ORDERED: POTASSIUM CHLORIDE ER 20 MEQ TAB.ER PO STA (13:31)
--- NOTE | 2021-12-07 13:35 | P.PN ---
Subjective Progress Note Date: 12/07/21 This is an 81-year-old female presenting with lethargy undergoing neurological evaluation. Patient was found to have questionable urinalysis with positive nitrates 2, urine culture was positive for staphylococcus epidermidis. Infectious disease is following the patient and patient has been started on oral cefdinir today. Mentation continues to wax and wane, she does have history of dementia, hospital stay is most likely exacerbating this at times. She is being followed by neurology however MRI/CT brain has come back negative. Labs today showing sodium 137, potassium 3.7, magnesium 1.4 which patient will receive 3 bags of IV magnesium today. Remains afebrile, heart rate 80s, blood pressure 146/92, 98% room air. 12/01/2021 Patient evaluated today resting in bed. Per nurse her appetite has increased, she is eating about 50% of hospital meals and family is bringing in food that she is eating. Patient has not had a BM since the . Bowel sounds are more hypoactive today, no abdominal tenderness or distention noted. Abdominal xray was performed which shows large stool burden throughout the colon. Suppository will be given. Patient has been receiving senna daily as well. Magnesium today i s now 2.1. Blood glucose in the 200s today, insulin adjusted. Patient does use long acting at home. Plan for discharge to rehab tomorrow. 12/03/2021 Patient is evaluated today sitting up in bed. She is more awake and alert today, talkative. No facial asymmetry noted today. She denies pain, reports fair appetite. Continues with indwelling catheter. She did receive a dose of seroquel yesterday as thought patient was going to rehab however was not accepted to facility. She also received dose last night for bedtime and she did well. Adjustments were made for discharge after discussion with family. She continues on aspirin/plavix/lipitor for stroke prophylaxis. Pending accepting subacute rehab. Infectious disease recommended 3 more days of oral omnicef on discharge. 12/06/2021 Patient is evaluated today resting in bed. She is able to converse in moldovan and appears well rested. She does state she is feeling well and states it is nice to converse in moldovan. There was discussion of family requesting hospice consultation and attempted to call family with no answer. Family has not come to the hospital today. Per case management familys first choice is subacute rehab. She has psychiatric consultation in place for medical competency and family can than complete medicaid application on behalf of patient. Otherwise her current insurance does not cover subacute rehab. Patient has completed antibiotic therapy for acute UTI. 12/07/2021 Patient evaluated today, no acute events overnight. Reports no pain. She is alert x 2-3 today, she is conversing without difficulty. She is waiting for her daughter who will be visiting today. Potassium today 3.4, magnesium 1.8. Receiving electrolyte replacement. Continue with IDC and follow with urology outpatient. Pending psychiatric evaluation for medical competency for patient to be able to fill out application for medicaid on behalf of patient. Family would like subacute rehab. She is stable for discharge pending placement and insurance coverage. Review of Systems Constitutional: Denied any fatigue denied any fever. Cardio vascular: denied any chest pain, palpitations Gastrointestinal: denied any nausea, vomiting, diarrhea Pulmonary: Denied any shortness of breath cough Neurologic denied any new focal deficits All inpatient medications were reviewed and appropriate changes in these medications as dictated in the interval history and assessment and plan. PHYSICAL EXAMINATION: GENERAL: The patient is alert and oriented x1-2, not in any acute distress. Well developed, well nourished. HEENT: Pupils are round and equally reacting to light. EOMI. No scleral icterus. No conjunctival pallor. Normocephalic, atraumatic. No pharyngeal erythema. No thyromegaly. CARDIOVASCULAR: S1 and S2 present. No murmurs, rubs, or gallops. PULMONARY: Chest is clear to auscultation, no wheezing or crackles. ABDOMEN: Soft, nontender, nondistended, hypoactive bowel sounds. No palpable organomegaly. Indwelling catheter in place MUSCULOSKELETAL: No joint swelling or deformity. EXTREMITIES: No cyanosis, clubbing, or pedal edema. NEUROLOGICAL: Gross neurological examination did not reveal any focal deficits. SKIN: No rashes. Assessment and plan Assessment Altered mental status with metabolic/toxic encephalopathy secondary to medication effect, improved Hypoglycemia, improved related to her diabetes mellitus with poor oral intake, improved Mild urinary retention with right hydronephrosis, with normal kidney function. Possible Acute urinary tract infection, culture showing staphylococcus epiderm idis completed antibiotic therapy Alzheimer dementia with behavioral problems. Diabetes mellitus with hyperglycemia Low vitamin B12 C5-C6 spinal stenosis with right upper extremity/shoulder pain and no weakness Generalized weakness GI Prophylaxis DVT Prophylaxis Full Code Plan Infectious disease consultation, completed antibiotic therapy while inpatient Continue to monitor glucose Seroquel adjustments made and patient tolerating well Continue on flomax, indwelling catheter in place and patient will follow up with urology outpatient Neurology service has signed off Continue on bowel regimen PT/OT Electrolyte replacement. Discharge to subacute rehab, patient is pending insurance coverage and authorization Follow up with family tomorrow The impression and plan of care has been dictated by Dyan Parrish, Nurse Practitioner as directed. Dr. Suyapa MD I have performed a history and physical examination and medical decision making of this patient, discussed the same with the dictator, and agree with the dictators assessment and plan as written, documented as a scribe. Based on total visit time, I have performed more than 50% of this visit. Objective - Vital Signs Vital signs: Vital Signs Temp 98.2 F 12/07/21 08:00 Pulse 90 12/07/21 08:00 Resp 18 12/07/21 08:00 BP 169/90 12/07/21 08:00 Pulse Ox 96 12/07/21 08:00 FiO2 Intake & Output 12/06/21 12/07/21 12/07/21 18:59 06:59 18:59 Weight 53.7 kg Other: Voiding Method Indwelling Catheter Indwelling Catheter - Labs CBC & Chem 7: 12/07/21 07:30 12/07/21 07:30 Labs: Abnormal Lab Results - Last 24 Hours (Table) 12/06/21 12/06/21 12/07/21 Range/Units 17:01 20:24 07:30 RBC 3.70 L (4.10-5.20) X 10*6/uL Hgb 10.9 L (12.0-15.0) g/dL Hct 34.2 L (37.2-46.3) % MCHC 31.9 L (32.0-37.0) g/dL MPV 9.3 L (9.5-12.2) fL Potassium (3.5-5.5) mmol/L Carbon Dioxide (20.0-27.5) mmol/L BUN/Creatinine Ratio (12.00-20.00) Ratio POC Glucose (mg/dL) 153 H 231 H (70-110) mg/dL 12/07/21 Range/Units 07:30 RBC (4.10-5.20) X 10*6/uL Hgb (12.0-15.0) g/dL Hct (37.2-46.3) % MCHC (32.0-37.0) g/dL MPV (9.5-12.2) fL Potassium 3.4 L (3.5-5.5) mmol/L Carbon Dioxide 30.1 H (20.0-27.5) mmol/L BUN/Creatinine Ratio 21.76 H (12.00-20.00) Ratio POC Glucose (mg/dL) (70-110) mg/dL Assessment and Plan Time with Patient: Less than 30
[2021-12-07] MEDS: MAGNESIUM OXIDE 400 MG TAB PO SCH (14:06)
[2021-12-07] MEDS ORDERED: POTASSIUM CHLORIDE ER 20 MEQ TAB.ER PO ONE (15:00)
[2021-12-07] MEDS ORDERED: ONDANSETRON ODT 4 MG TAB PO PRN (16:09)
[2021-12-07] MEDS: TAMSULOSIN 0.4 MG CAP.ER.24H PO SCH (16:16)
[2021-12-07 16:45] LABS: Glucose,Whole Blood 165 mg/dL (70-110)
[2021-12-07] MEDS: QUEtiapine 25 MG TAB PO PRN (16:50)
[2021-12-07 20:38] LABS: Glucose,Whole Blood 166 mg/dL (70-110)
[2021-12-07] MEDS: CLOPIDOGREL 75 MG TAB PO SCH (21:55)
[2021-12-07] MEDS: ATORVASTATIN 20 MG TAB PO SCH (21:55)
[2021-12-07] MEDS: QUEtiapine 25 MG TAB PO SCH (21:56)
[2021-12-08] MEDS: CIPROFLOXACIN 0.3% OPHTH SOLN 5 ML BTL BOTH EYES SCH ×6 (00:12→21:37)
[2021-12-08 07:12] LABS: Glucose,Whole Blood 128 mg/dL (70-110)
[2021-12-08] MEDS: INSULIN DETEMIR (LEVEMIR) 100 UNIT/ML SYR SQ SCH (08:21)
[2021-12-08] MEDS: INSULIN ASPART (NovoLOG) 100 UNIT/ML VIAL SQ SCH ×4 (08:21→21:39)
[2021-12-08] MEDS: LOSARTAN 50 MG TAB PO SCH (08:33)
[2021-12-08] MEDS: FAMOTIDINE 20 MG/2 ML VIAL IV SCH ×2 (08:33→22:23)
[2021-12-08] MEDS: METOPROLOL TARTRATE 25 MG TAB PO SCH ×2 (08:33→21:37)
[2021-12-08] MEDS: MAGNESIUM OXIDE 400 MG TAB PO SCH (08:33)
[2021-12-08] MEDS: CYANOCOBALAMIN 500 MCG TAB PO SCH (08:33)
[2021-12-08] MEDS: MEMANTINE 5 MG TAB PO SCH ×2 (08:33→21:37)
[2021-12-08] MEDS: HEPARIN SODIUM,PORCINE/PF 5,000 UNIT/0.5 ML SYRINGE SQ SCH ×2 (08:45→21:38)
[2021-12-08 11:32] LABS: Glucose,Whole Blood 165 mg/dL (70-110)
--- NOTE | 2021-12-08 13:45 | P.PN ---
Subjective Progress Note Date: 12/08/21 This is an 81-year-old female presenting with lethargy undergoing neurological evaluation. Patient was found to have questionable urinalysis with positive nitrates 2, urine culture was positive for staphylococcus epidermidis. Infectious disease is following the patient and patient has been started on oral cefdinir today. Mentation continues to wax and wane, she does have history of dementia, hospital stay is most likely exacerbating this at times. She is being followed by neurology however MRI/CT brain has come back negative. Labs today showing sodium 137, potassium 3.7, magnesium 1.4 which patient will receive 3 bags of IV magnesium today. Remains afebrile, heart rate 80s, blood pressure 146/92, 98% room air. 12/01/2021 Patient evaluated today resting in bed. Per nurse her appetite has increased, she is eating about 50% of hospital meals and family is bringing in food that she is eating. Patient has not had a BM since the . Bowel sounds are more hypoactive today, no abdominal tenderness or distention noted. Abdominal xray was performed which shows large stool burden throughout the colon. Suppository will be given. Patient has been receiving senna daily as well. Magnesium today i s now 2.1. Blood glucose in the 200s today, insulin adjusted. Patient does use long acting at home. Plan for discharge to rehab tomorrow. 12/03/2021 Patient is evaluated today sitting up in bed. She is more awake and alert today, talkative. No facial asymmetry noted today. She denies pain, reports fair appetite. Continues with indwelling catheter. She did receive a dose of seroquel yesterday as thought patient was going to rehab however was not accepted to facility. She also received dose last night for bedtime and she did well. Adjustments were made for discharge after discussion with family. She continues on aspirin/plavix/lipitor for stroke prophylaxis. Pending accepting subacute rehab. Infectious disease recommended 3 more days of oral omnicef on discharge. 12/06/2021 Patient is evaluated today resting in bed. She is able to converse in iranian and appears well rested. She does state she is feeling well and states it is nice to converse in iranian. There was discussion of family requesting hospice consultation and attempted to call family with no answer. Family has not come to the hospital today. Per case management familys first choice is subacute rehab. She has psychiatric consultation in place for medical competency and family can than complete medicaid application on behalf of patient. Otherwise her current insurance does not cover subacute rehab. Patient has completed antibiotic therapy for acute UTI. 12/07/2021 Patient evaluated today, no acute events overnight. Reports no pain. She is alert x 2-3 today, she is conversing without difficulty. She is waiting for her daughter who will be visiting today. Potassium today 3.4, magnesium 1.8. Receiving electrolyte replacement. Continue with IDC and follow with urology outpatient. Pending psychiatric evaluation for medical competency for patient to be able to fill out application for medicaid on behalf of patient. Family would like subacute rehab. She is stable for discharge pending placement and insurance coverage. 12/08/2021 Patient is resting in bed, continues with indwelling catheter on flomax and will see urology outpatient. She is alert and oriented x 2-3, she speaks limited danish but can answer simple questions. Potassium improved to 4.2 today. Blood sugar has also improved. No acute events overnight. Hemodynamically stable. Pending ECF placement and insurance authorization for subacute rehab. Review of Systems Constitutional: Denied any fatigue denied any fever. Cardio vascular: denied any chest pain, palpitations Gastrointestinal: denied any nausea, vomiting, diarrhea Pulmonary: Denied any shortness of breath cough Neurologic denied any new focal deficits All inpatient medications were reviewed and appropriate changes in these medications as dictated in the interval history and assessment and plan. PHYSICAL EXAMINATION: GENERAL: The patient is alert and oriented x2-3, not in any acute distress. Well developed, well nourished. HEENT: Pupils are round and equally reacting to light. EOMI. No scleral icterus. No conjunctival pallor. Normocephalic, atraumatic. No pharyngeal erythema. No thyromegaly. CARDIOVASCULAR: S1 and S2 present. No murmurs, rubs, or gallops. PULMONARY: Chest is clear to auscultation, no wheezing or crackles. ABDOMEN: Soft, nontender, nondistended, hypoactive bowel sounds. No palpable organomegaly. Indwelling catheter in place MUSCULOSKELETAL: No joint swelling or deformity. EXTREMITIES: No cyanosis, clubbing, or pedal edema. NEUROLOGICAL: Gross neurological examination did not reveal any focal deficits. SKIN: No rashes. Assessment and plan Assessment Altered mental status with metabolic/toxic encephalopathy secondary to medication effect, improved Hypoglycemia, improved related to her diabetes mellitus with poor oral intake, improved Mild urinary retention with right hydronephrosis, with normal kidney function. Possible Acute urinary tract infection, culture showing staphylococcus epidermidis completed antibiotic therapy Alzheimer dementia with behavioral problems. Diabetes mellitus with hyperglycemia Low vitamin B12 C5-C6 spinal stenosis with right upper extremity/shoulder pain and no weakness Generalized weakness GI Prophylaxis DVT Prophylaxis Full Code Plan Infectious disease consultation, completed antibiotic therapy while inpatient Continue to monitor glucose Seroquel adjustments made and patient tolerating well Continue on flomax, indwelling catheter in place and patient will follow up with urology outpatient Neurology service has signed off Continue on bowel regimen PT/OT Electrolyte replacement. Discharge to subacute rehab, patient is pending insurance coverage and authorization The impression and plan of care has been dictated by Dyan Parrish Nurse Practitioner as directed. Dr. Suyapa MD I have performed a history and physical examination and medical decision making of this patient, discussed the same with the dictator, and agree with the dictators assessment and plan as written, documented as a scribe. Based on total visit time, I have performed more than 50% of this visit. Objective - Vital Signs Vital signs: Vital Signs Temp 97.9 F 12/08/21 08:00 Pulse 73 12/08/21 08:00 Resp 16 12/08/21 08:00 BP 132/71 12/08/21 08:00 Pulse Ox 97 12/08/21 08:00 FiO2 Intake & Output 12/07/21 12/08/21 12/08/21 18:59 06:59 18:59 Intake Total 480 Output Total 700 Balance -220 Intake: Oral 480 Output: Urine 700 Other: Voiding Method Indwelling Catheter # Bowel Movements 1 - Labs CBC & Chem 7: 12/07/21 07:30 12/08/21 08:55 Labs: Abnormal Lab Results - Last 24 Hours (Table) 12/07/21 12/07/21 12/07/21 Range/Units 07:30 07:30 16:41 RBC 3.70 L (4.10-5.20) X 10*6/uL Hgb 10.9 L (12.0-15.0) g/dL Hct 34.2 L (37.2-46.3) % MCHC 31.9 L (32.0-37.0) g/dL MPV 9.3 L (9.5-12.2) fL Potassium 3.4 L (3.5-5.5) mmol/L Carbon Dioxide 30.1 H (20.0-27.5) mmol/L BUN/Creatinine Ratio 21.76 H (12.00-20.00) Ratio POC Glucose (mg/dL) 165 H (70-110) mg/dL 12/07/21 12/08/21 Range/Units 20:36 07:10 RBC (4.10-5.20) X 10*6/uL Hgb (12.0-15.0) g/dL Hct (37.2-46.3) % MCHC (32.0-37.0) g/dL MPV (9.5-12.2) fL Potassium (3.5-5.5) mmol/L Carbon Dioxide (20.0-27.5) mmol/L BUN/Creatinine Ratio (12.00-20.00) Ratio POC Glucose (mg/dL) 166 H 128 H (70-110) mg/dL Assessment and Plan Time with Patient: Less than 30
[2021-12-08 16:29] LABS: Glucose,Whole Blood 166 mg/dL (70-110)
[2021-12-08] MEDS: TAMSULOSIN 0.4 MG CAP.ER.24H PO SCH (17:29)
--- NOTE | 2021-12-08 17:33 | P.PN ---
Subjective Progress Note Date: 12/07/21 Principal diagnosis: Urinary tract infection Patient is a 81-year-old female presenting to the hospital with weakness and lethargy with initial workup for possible CVA and she did have a negative UA on admission subsequently positive UA concerning for a cath associated UTI in this patient with a penicillin ALLERGY. On today's evaluation that is 12/07/2021, the patient continues to be afebrile, the patient is breathing comfortable on room air, the patient denies chest pain, shortness of breath or cough, the patient denies abdominal pain and no diarrhea Objective - Vital Signs Vital signs: Vital Signs Temp 98.3 F 12/07/21 14:00 Pulse 81 12/07/21 14:00 Resp 18 12/07/21 14:00 BP 146/77 12/07/21 14:00 Pulse Ox 96 12/07/21 14:00 FiO2 Intake & Output 12/06/21 12/07/21 12/07/21 18:59 06:59 18:59 Weight 53.7 kg Other: Voiding Method Indwelling Catheter Indwelling Catheter - Exam GENERAL DESCRIPTION: An elderly female lying in bed in no distress RESPIRATORY SYSTEM: Unlabored breathing , decreased breath sounds at bases HEART: S1 S2 regular rate and rhythm , ABDOMEN: Soft , no tenderness EXTREMITIES: No edema feet - Labs CBC & Chem 7: 12/07/21 07:30 12/08/21 08:55 Labs: Abnormal Lab Results - Last 24 Hours (Table) 12/06/21 12/06/21 12/07/21 Range/Units 17:01 20:24 07:30 RBC 3.70 L (4.10-5.20) X 10*6/uL Hgb 10.9 L (12.0-15.0) g/dL Hct 34.2 L (37.2-46.3) % MCHC 31.9 L (32.0-37.0) g/dL MPV 9.3 L (9.5-12.2) fL Potassium (3.5-5.5) mmol/L Carbon Dioxide (20.0-27.5) mmol/L BUN/Creatinine Ratio (12.00-20.00) Ratio POC Glucose (mg/dL) 153 H 231 H (70-110) mg/dL 12/07/21 Range/Units 07:30 RBC (4.10-5.20) X 10*6/uL Hgb (12.0-15.0) g/dL Hct (37.2-46.3) % MCHC (32.0-37.0) g/dL MPV (9.5-12.2) fL Potassium 3.4 L (3.5-5.5) mmol/L Carbon Dioxide 30.1 H (20.0-27.5) mmol/L BUN/Creatinine Ratio 21.76 H (12.00-20.00) Ratio POC Glucose (mg/dL) (70-110) mg/dL Assessment and Plan (1) Urinary tract infection Current Visit: Yes Status: Acute Code(s): N39.0 - URINARY TRACT INFECTION, SITE NOT SPECIFIED SNOMED Code(s): 24145089 Plan: 1patient with significantly positive UA in this patient initial presentation to the hospital with mental status changes and initial concern for CVA however the patient did have work-up including CT and MRI that has been negative patient did have a normal UA on admission and subsequently was significantly positive UA with concern for possible catheter associated UTI. 2penicillin allergy that would limit the number of antibiotics safe to use. However the patient has tolerated Omnicef without any problems 3-the patient urine culture with staph epi oxacillin sensitive to Rocephin , patient has received adequate antibiotic therapy with Rocephin which has been discontinued and we'll monitor the patient closely off antibiotic Time with Patient: Less than 30
--- NOTE | 2021-12-08 17:33 | P.PN ---
Subjective Progress Note Date: 12/08/21 Principal diagnosis: Urinary tract infection Patient is a 81-year-old female presenting to the hospital with weakness and lethargy with initial workup for possible CVA and she did have a negative UA on admission subsequently positive UA concerning for a cath associated UTI in this patient with a penicillin ALLERGY. On today's evaluation that is 12/08/2021, the patient denies any fever or any chills, the patient is breathing comfortable on room air, the patient denies chest pain, shortness of breath or cough, the patient denies nausea and vomiting, no abdominal pain and no diarrhea Objective - Vital Signs Vital signs: Vital Signs Temp 98.0 F 12/08/21 15:00 Pulse 89 12/08/21 15:00 Resp 16 12/08/21 15:00 BP 138/87 12/08/21 15:00 Pulse Ox 96 12/08/21 15:00 FiO2 Intake & Output 12/07/21 12/08/21 12/08/21 18:59 06:59 18:59 Intake Total 480 Output Total 700 Balance -220 Intake: Oral 480 Output: Urine 700 Other: Voiding Method Indwelling Catheter # Bowel Movements 1 - Exam GENERAL DESCRIPTION: An elderly female lying in bed in no distress RESPIRATORY SYSTEM: Unlabored breathing , decreased breath sounds at bases HEART: S1 S2 regular rate and rhythm , ABDOMEN: Soft , no tenderness EXTREMITIES: No edema feet - Labs CBC & Chem 7: 12/07/21 07:30 12/08/21 08:55 Labs: Abnormal Lab Results - Last 24 Hours (Table) 12/07/21 12/08/21 12/08/21 Range/Units 20:36 07:10 11:29 POC Glucose (mg/dL) 166 H 128 H 165 H (70-110) mg/dL 12/08/21 Range/Units 16:28 POC Glucose (mg/dL) 166 H (70-110) mg/dL Assessment and Plan (1) Urinary tract infection Current Visit: Yes Status: Acute Code(s): N39.0 - URINARY TRACT INFECTION, SITE NOT SPECIFIED SNOMED Code(s): 43457054 Plan: 1patient with significantly positive UA in this patient initial presentation to the hospital with mental status changes and initial concern for CVA however the patient did have work-up including CT and MRI that has been negative patient did have a normal UA on admission and subsequently was significantly positive UA with concern for possible catheter associated UTI. 2penicillin allergy that would limit the number of antibiotics safe to use. However the patient has tolerated Omnicef without any problems 3-the patient urine culture with staph epi oxacillin sensitive to Rocephin , patient underlying UTI has been adequately treated currently being monitor closely off antibiotic therapy Time with Patient: Less than 30
[2021-12-08 20:13] LABS: Glucose,Whole Blood 252 mg/dL (70-110)
[2021-12-08] MEDS: ATORVASTATIN 20 MG TAB PO SCH (21:37)
[2021-12-08] MEDS: CLOPIDOGREL 75 MG TAB PO SCH (21:37)
[2021-12-08] MEDS: QUEtiapine 25 MG TAB PO SCH (21:38)
[2021-12-09] MEDS: CIPROFLOXACIN 0.3% OPHTH SOLN 5 ML BTL BOTH EYES SCH ×3 (00:04→08:49)
[2021-12-09 07:14] LABS: Glucose,Whole Blood 160 mg/dL (70-110)
[2021-12-09] MEDS: INSULIN DETEMIR (LEVEMIR) 100 UNIT/ML SYR SQ SCH (08:37)
[2021-12-09] MEDS: MEMANTINE 5 MG TAB PO SCH ×2 (08:38→20:31)
[2021-12-09] MEDS: INSULIN ASPART (NovoLOG) 100 UNIT/ML VIAL SQ SCH ×4 (08:38→21:11)
[2021-12-09] MEDS: LOSARTAN 50 MG TAB PO SCH (08:38)
[2021-12-09] MEDS: CYANOCOBALAMIN 500 MCG TAB PO SCH (08:38)
[2021-12-09] MEDS: HEPARIN SODIUM,PORCINE/PF 5,000 UNIT/0.5 ML SYRINGE SQ SCH ×2 (08:38→20:31)
[2021-12-09] MEDS: METOPROLOL TARTRATE 25 MG TAB PO SCH ×2 (08:38→20:31)
[2021-12-09] MEDS: MAGNESIUM OXIDE 400 MG TAB PO SCH (08:38)
[2021-12-09] MEDS: FAMOTIDINE 20 MG/2 ML VIAL IV SCH ×2 (08:39→21:11)
[2021-12-09 11:29] LABS: Glucose,Whole Blood 106 mg/dL (70-110)
--- NOTE | 2021-12-09 14:32 | P.PN ---
Progress Note - Text Progress Note Date: 12/09/21 Interval History: Patient was seen today for psychiatric follow-up. Novelty Worker spoke with patient's nurse and also patient's daughter who was present at the bedside. She states that patient has been progressively getting worse in terms of her cognition memory and also functioning. She states that she came to live with them from [place] and does not have a neurologist here in town. She also stated that patient was on trazodone and Seroquel and also haloperidol and did not react well with them and ended up in the hospital. She states that now she is less agitated with her and more cooperative. Nurse claims that patient has been sleeping fairly throughout the night. Novelty Worker introduced himself and spoke with patient. She attempted to answer questions as best that she could however was fairly distracted with the television. She does not know where she is at this time, does not know today's date. She knows her full name. She believes that she is 69 years old however was corrected. She often states "who knows" in vietnamese when she does not knopw the answer to question. She was not able to answer questions about her medications and need for treatment. She appears to have limited insight. At this time patient denies any suicidal or homical ideations, intent or plan. Patient denies any auditory, visual hallucinations and denies any paranoia or delusions. Patient denies any side effects from the medications and has been compliant with meds. MENTAL STATUS EXAM: General Appearance: Patient appears to be stated age is thin, wearing glasses, watching television, alert, pleasant, and attempts to be cooperative. Patient appears to have fair hygiene and grooming wearing hospital gown with fair eye contact. Behavior: Patient is calmly lying in bed without any agitated behavior. Attempts to cooperate. Speech: Patient's speech is fluent and nonpressured. [place]. Mainly in Irish. Mood/Affect: Patient reports their mood is "ok", affect is congruent and constricted Suicidality/Homicidality: Patient denies having any suicidal or homicidal ideation intent or plan. Perceptions: Patient denies any visual hallucinations and denies any auditory hallucinations Though content/process: [place], poverty of content. Memory and concentration: AOX1, to her name only. Cannot spell "WORLD" backwards. Poor memory recall. Judgment and insight: Chronically limited IMPRESSIONS: Rad. neurocognitive disorder PLAN: -At this time patient DOES NOT meet criteria for inpatient psychiatric admission. -Patient DOES NOT have decision making capacity at this time and is unable to reason through and communicate/appreciate the risks, benefits and alternatives to treatment and patient could definitely benefit from gaurdianship. -Delirium precautions recommended with patient including - avoiding use of narcotics and JEWEL GAUGER sedatives, limit anticholinergic medications when possible, frequent re-orientation, minimize use of restraints, open window shades during the day and close them at night -Would recommend the following medication changes/additions: added melatonin 3 mg qhs for sleep regulation. continue with seroquel 12.5 mg qhs for mood stabilization/insomnia and 25 mg prn for agitation. -Communicated plan to patient's nurse -Psychiatry will sign off at this time -Please contact with any questions.
[2021-12-09] MEDS: ACETAMINOPHEN TAB 325 MG TAB PO PRN (16:04)
[2021-12-09 16:45] LABS: Glucose,Whole Blood 233 mg/dL (70-110)
--- NOTE | 2021-12-09 16:52 | P.PN ---
Subjective Progress Note Date: 12/09/21 This is an 81-year-old female presenting with lethargy undergoing neurological evaluation. Patient was found to have questionable urinalysis with positive nitrates 2, urine culture was positive for staphylococcus epidermidis. Infectious disease is following the patient and patient has been started on oral cefdinir today. Mentation continues to wax and wane, she does have history of dementia, hospital stay is most likely exacerbating this at times. She is being followed by neurology however MRI/CT brain has come back negative. Labs today showing sodium 137, potassium 3.7, magnesium 1.4 which patient will receive 3 bags of IV magnesium today. Remains afebrile, heart rate 80s, blood pressure 146/92, 98% room air. 12/01/2021 Patient evaluated today resting in bed. Per nurse her appetite has increased, she is eating about 50% of hospital meals and family is bringing in food that she is eating. Patient has not had a BM since the . Bowel sounds are more hypoactive today, no abdominal tenderness or distention noted. Abdominal xray was performed which shows large stool burden throughout the colon. Suppository will be given. Patient has been receiving senna daily as well. Magnesium today i s now 2.1. Blood glucose in the 200s today, insulin adjusted. Patient does use long acting at home. Plan for discharge to rehab tomorrow. 12/03/2021 Patient is evaluated today sitting up in bed. She is more awake and alert today, talkative. No facial asymmetry noted today. She denies pain, reports fair appetite. Continues with indwelling catheter. She did receive a dose of seroquel yesterday as thought patient was going to rehab however was not accepted to facility. She also received dose last night for bedtime and she did well. Adjustments were made for discharge after discussion with family. She continues on aspirin/plavix/lipitor for stroke prophylaxis. Pending accepting subacute rehab. Infectious disease recommended 3 more days of oral omnicef on discharge. 12/06/2021 Patient is evaluated today resting in bed. She is able to converse in jordanian and appears well rested. She does state she is feeling well and states it is nice to converse in jordanian. There was discussion of family requesting hospice consultation and attempted to call family with no answer. Family has not come to the hospital today. Per case management familys first choice is subacute rehab. She has psychiatric consultation in place for medical competency and family can than complete medicaid application on behalf of patient. Otherwise her current insurance does not cover subacute rehab. Patient has completed antibiotic therapy for acute UTI. 12/07/2021 Patient evaluated today, no acute events overnight. Reports no pain. She is alert x 2-3 today, she is conversing without difficulty. She is waiting for her daughter who will be visiting today. Potassium today 3.4, magnesium 1.8. Receiving electrolyte replacement. Continue with IDC and follow with urology outpatient. Pending psychiatric evaluation for medical competency for patient to be able to fill out application for medicaid on behalf of patient. Family would like subacute rehab. She is stable for discharge pending placement and insurance coverage. 12/08/2021 Patient is resting in bed, continues with indwelling catheter on flomax and will see urology outpatient. She is alert and oriented x 2-3, she speaks limited gabonese but can answer simple questions. Potassium improved to 4.2 today. Blood sugar has also improved. No acute events overnight. Hemodynamically stable. Pending ECF placement and insurance authorization for subacute rehab. 12/09/2021 Patient is resting in bed, she is alert. Daughter at bedside and had long discussion regarding discharge planning. She would like to take patient home with hospice. Patient has been diagnosed with advanced dementia by her doctor out in [place]. Per the daughter she has not been able to perform any of her ADLs for a while now. She was ambulating some with walker since coming to [place], however this had declined about 1 day after getting here. Daughter states she was able to speak more in gabonese in the past but as her dementia has been advancing she seems to have forgotten her gabonese and is speaking primarily in jordanian. She answers simple questions only. Psychiatry saw her and felt patient was not medically competent to make her own healthcare decisions, that she has poor judgment and insight. She has completed course of therapy for acute UTI. She is a total assist for care and ADLs per most recent PT notes. Currently family was pursuing sub acute rehab, however felt that with patients advanced dementia she would do better coming home with family. Spoke with daughter regarding code status and she would like to make patient a do not resuscitate. Daughter has been talking with [facility] on her own and they were placed on consult to meet with daughter. Review of Systems Constitutional: Denied any fatigue denied any fever. Cardio vascular: denied any chest pain, palpitations Gastrointestinal: denied any nausea, vomiting, diarrhea Pulmonary: Denied any shortness of breath cough Neurologic denied any new focal deficits All inpatient medications were reviewed and appropriate changes in these medications as dictated in the interval history and assessment and plan. PHYSICAL EXAMINATION: GENERAL: The patient is alert and oriented x1, not in any acute distress. Well developed, well nourished. HEENT: Pupils are round and equally reacting to light. EOMI. No scleral icterus. No conjunctival pallor. Normocephalic, atraumatic. No pharyngeal erythema. No thyromegaly. CARDIOVASCULAR: S1 and S2 present. No murmurs, rubs, or gallops. PULMONARY: Chest is clear to auscultation, no wheezing or crackles. ABDOMEN: Soft, nontender, nondistended, hypoactive bowel sounds. No palpable organomegaly. Indwelling catheter in place MUSCULOSKELETAL: No joint swelling or deformity. EXTREMITIES: No cyanosis, clubbing, or pedal edema. NEUROLOGICAL: Gross neurological examination did not reveal any focal deficits. SKIN: No rashes. Assessment and plan Assessment Altered mental status with metabolic/toxic encephalopathy secondary to medication effect, improved Hypoglycemia, improved related to her diabetes mellitus with poor oral intake, improved Mild urinary retention with right hydronephrosis, with normal kidney function. Possible Acute urinary tract infection, culture showing staphylococcus epidermidis completed antibiotic therapy Alzheimer dementia with behavioral problems. Diabetes mellitus with hyperglycemia Low vitamin B12 C5-C6 spinal stenosis with right upper extremity/shoulder pain and no weakness Generalized weakness GI Prophylaxis DVT Prophylaxis No Code Plan Infectious disease consultation, completed antibiotic therapy while inpatient Continue to monitor glucose Seroquel adjustments made and patient tolerating well Continue on flomax, indwelling catheter in place and patient will follow up with urology outpatient Neurology service has signed off Continue on bowel regimen Psychiatry evaluation completed today and deemed patient medically incompetent to make own decisions Family to follow up with case management/social work/hospice tomorrow. Patients daughter would like make arrangements for patient to be brought home with hospice services and she has been speaking with [facility]. She does not currently have a PCP in [place] at this time. Limited resources this weeke nd/holiday and daughter aware that any further discharge planning and recommendations will take place tomorrow. The impression and plan of care has been dictated by Dyan Parrish Nurse Practitioner as directed. Dr. Suyapa MD I have performed a history and physical examination and medical decision making of this patient, discussed the same with the dictator, and agree with the dictators assessment and plan as written, documented as a scribe. Based on total visit time, I have performed more than 50% of this visit. Objective - Vital Signs Vital signs: Vital Signs Temp 98.3 F 12/09/21 15:00 Pulse 86 12/09/21 15:00 Resp 16 12/09/21 15:00 BP 130/75 12/09/21 15:00 Pulse Ox 97 12/09/21 15:00 FiO2 Intake & Output 12/08/21 12/09/21 12/09/21 18:59 06:59 18:59 Output Total 200 Balance -200 Output: Urine 200 Other: Voiding Method Indwelling Catheter Indwelling Catheter - Labs CBC & Chem 7: 12/07/21 07:30 12/08/21 08:55 Labs: Abnormal Lab Results - Last 24 Hours (Table) 12/08/21 12/09/21 Range/Units 20:11 07:12 POC Glucose (mg/dL) 252 H 160 H (70-110) mg/dL Assessment and Plan Time with Patient: Less than 30
[2021-12-09] MEDS: TAMSULOSIN 0.4 MG CAP.ER.24H PO SCH (17:04)
[2021-12-09] MEDS: ATORVASTATIN 20 MG TAB PO SCH (20:30)
[2021-12-09] MEDS: CLOPIDOGREL 75 MG TAB PO SCH (20:31)
[2021-12-09] MEDS: QUEtiapine 25 MG TAB PO SCH (20:31)
[2021-12-09] MEDS: MELATONIN 3 MG TABLET PO SCH (20:31)
[2021-12-09 21:05] LABS: Glucose,Whole Blood 160 mg/dL (70-110)
[2021-12-10 07:26] LABS: Glucose,Whole Blood 104 mg/dL (70-110)
[2021-12-10] MEDS: INSULIN ASPART (NovoLOG) 100 UNIT/ML VIAL SQ SCH ×3 (07:39→21:04)
[2021-12-10] MEDS: MEMANTINE 5 MG TAB PO SCH ×2 (08:20→21:04)
[2021-12-10] MEDS: FAMOTIDINE 20 MG/2 ML VIAL IV SCH ×2 (08:20→21:07)
[2021-12-10] MEDS: HEPARIN SODIUM,PORCINE/PF 5,000 UNIT/0.5 ML SYRINGE SQ SCH ×2 (08:20→21:04)
[2021-12-10] MEDS: MAGNESIUM OXIDE 400 MG TAB PO SCH (08:21)
[2021-12-10] MEDS: INSULIN DETEMIR (LEVEMIR) 100 UNIT/ML SYR SQ SCH (08:21)
[2021-12-10] MEDS: LOSARTAN 50 MG TAB PO SCH (08:21)
[2021-12-10] MEDS: CYANOCOBALAMIN 500 MCG TAB PO SCH (08:21)
[2021-12-10] MEDS: METOPROLOL TARTRATE 25 MG TAB PO SCH ×2 (09:51→21:06)
[2021-12-10 11:12] LABS: Glucose,Whole Blood 154 mg/dL (70-110)
[2021-12-10] MEDS ORDERED: INSULIN ASPART (NovoLOG) 100 UNIT/ML VIAL SQ ONE (17:30)
[2021-12-10 19:11] LABS: Glucose,Whole Blood 244 mg/dL (70-110)
[2021-12-10] MEDS: TAMSULOSIN 0.4 MG CAP.ER.24H PO SCH (19:41)
[2021-12-10 21:01] LABS: Glucose,Whole Blood 261 mg/dL (70-110)
[2021-12-10] MEDS: QUEtiapine 25 MG TAB PO SCH (21:05)
[2021-12-10] MEDS: CLOPIDOGREL 75 MG TAB PO SCH (21:06)
[2021-12-10] MEDS: MELATONIN 3 MG TABLET PO SCH (21:06)
[2021-12-10] MEDS: ATORVASTATIN 20 MG TAB PO SCH (21:06)
[2021-12-11 07:16] LABS: Glucose,Whole Blood 132 mg/dL (70-110)
[2021-12-11] MEDS: INSULIN ASPART (NovoLOG) 100 UNIT/ML VIAL SQ SCH ×2 (07:48→13:08)
[2021-12-11] MEDS: MAGNESIUM OXIDE 400 MG TAB PO SCH (07:55)
[2021-12-11] MEDS: MEMANTINE 5 MG TAB PO SCH (07:55)
[2021-12-11] MEDS: LOSARTAN 50 MG TAB PO SCH (07:55)
[2021-12-11] MEDS: METOPROLOL TARTRATE 25 MG TAB PO SCH (07:55)
[2021-12-11] MEDS: INSULIN DETEMIR (LEVEMIR) 100 UNIT/ML SYR SQ SCH (07:56)
[2021-12-11] MEDS: HEPARIN SODIUM,PORCINE/PF 5,000 UNIT/0.5 ML SYRINGE SQ SCH (07:56)
[2021-12-11] MEDS: CYANOCOBALAMIN 500 MCG TAB PO SCH (08:03)
[2021-12-11 09:17] VITALS: BP 175/71; PULSE 73; RESP 12; TEMP 98.2
--- NOTE | 2021-12-11 09:56 | P.PN ---
Subjective Progress Note Date: 12/10/21 This is an 81-year-old female presenting with lethargy undergoing neurological evaluation. Patient was found to have questionable urinalysis with positive nitrates 2, urine culture was positive for staphylococcus epidermidis. Infectious disease is following the patient and patient has been started on oral cefdinir today. Mentation continues to wax and wane, she does have history of dementia, hospital stay is most likely exacerbating this at times. She is being followed by neurology however MRI/CT brain has come back negative. Labs today showing sodium 137, potassium 3.7, magnesium 1.4 which patient will receive 3 bags of IV magnesium today. Remains afebrile, heart rate 80s, blood pressure 146/92, 98% room air. 12/01/2021 Patient evaluated today resting in bed. Per nurse her appetite has increased, she is eating about 50% of hospital meals and family is bringing in food that she is eating. Patient has not had a BM since the . Bowel sounds are more hypoactive today, no abdominal tenderness or distention noted. Abdominal xray was performed which shows large stool burden throughout the colon. Suppository will be given. Patient has been receiving senna daily as well. Magnesium today is now 2.1. Blood glucose in the 200s today, insulin adjusted. Patient does use long acting at home. Plan for discharge to rehab tomorrow. 12/03/2021 Patient is evaluated today sitting up in bed. She is more awake and alert today, talkative. No facial asymmetry noted today. She denies pain, reports fair appetite. Continues with indwelling catheter. She did receive a dose of seroquel yesterday as thought patient was going to rehab however was not accepted to facility. She also received dose last night for bedtime and she did well. Adjustments were made for discharge after discussion with family. She continues on aspirin/plavix/lipitor for stroke prophylaxis. Pending accepting subacute rehab. Infectious disease recommended 3 more days of oral omnicef on discharge. 12/06/2021 Patient is evaluated today resting in bed. She is able to converse in nicaraguan and appears well rested. She does state she is feeling well and states it is nice to converse in nicaraguan. There was discussion of family requesting hospice consultation and attempted to call family with no answer. Family has not come to the hospital today. Per case management familys first choice is subacute rehab. She has psychiatric consultation in place for medical competency and family can than complete medicaid application on behalf of patient. Otherwise her current insurance does not cover subacute rehab. Patient has completed antibiotic therapy for acute UTI. 12/07/2021 Patient evaluated today, no acute events overnight. Reports no pain. She is alert x 2-3 today, she is conversing without difficulty. She is waiting for her daughter who will be visiting today. Potassium today 3.4, magnesium 1.8. Receiving electrolyte replacement. Continue with IDC and follow with urology outpatient. Pending psychiatric evaluation for medical competency for patient to be able to fill out application for medicaid on behalf of patient. Family would like subacute rehab. She is stable for discharge pending placement and insurance coverage. 12/08/2021 Patient is resting in bed, continues with indwelling catheter on flomax and will see urology outpatient. She is alert and oriented x 2-3, she speaks limited guamanian but can answer simple questions. Potassium improved to 4.2 today. Blood sugar has also improved. No acute events overnight. Hemodynamically stable. Pending ECF placement and insurance authorization for subacute rehab. 12/09/2021 Patient is resting in bed, she is alert. Daughter at bedside and had long discussion regarding discharge planning. She would like to take patient home with hospice. Patient has been diagnosed with advanced dementia by her doctor out in [place]. Per the daughter she has not been able to perform any of her ADLs for a while now. She was ambulating some with walker since coming to [place], however this had declined about 1 day after getting here. Daughter states she was able to speak more in guamanian in the past but as her dementia has been advancing she seems to have forgotten her guamanian and is speaking primarily in nicaraguan. She answers simple questions only. Psychiatry saw her and felt patient was not medically competent to make her own healthcare decisions, that she has poor judgment and insight. She has completed course of therapy for acute UTI. She is a total assist for care and ADLs per most recent PT notes. Currently family was pursuing sub acute rehab, however felt that with patients advanced dementia she would do better coming home with family. Spoke with daughter regarding code status and she would like to make patient a do not resuscitate. Daughter has been talking with [facility] on her own and they were placed on consult to meet with daughter. 12/10/2021 Patient is seen and evaluated and follow-up with daughter at the bedside and working on discharge planning as patient will be going home with hospice with the daughter. Patient is currently sitting up in the chair eating [employer] with no reports of nausea or vomiting noted. Patient is appropriate and awake and responding to questions and commands. Daughter is concerned she has no glucometer for the patient and have discussed with case management who will provide a glucometer on discharge. Discharge planning in process with [facility] following and arranging for discharge planning needs and possible hospital bed at the daughter's home. Patient is afebrile denies chest pain or shortness of breath with no reports of nausea or vomiting and is tolerating diet. Review of Systems Constitutional: Denied any fatigue denied any fever. Cardio vascular: denied any chest pain, palpitations Gastrointestinal: denied any nausea, vomiting, diarrhea Pulmonary: Denied any shortness of breath cough Neurologic denied any new focal deficits All inpatient medications were reviewed and appropriate changes in these medications as dictated in the interval history and assessment and plan. PHYSICAL EXAMINATION: GENERAL: The patient is alert and oriented x1, not in any acute distress. Well developed, well nourished. HEENT: Pupils are round and equally reacting to light. EOMI. No scleral icterus. No conjunctival pallor. Normocephalic, atraumatic. No pharyngeal erythema. No thyromegaly. CARDIOVASCULAR: S1 and S2 present. No murmurs, rubs, or gallops. PULMONARY: Chest is clear to auscultation, no wheezing or crackles. ABDOMEN: Soft, nontender, nondistended, hypoactive bowel sounds. No palpable organomegaly. Indwelling catheter in place MUSCULOSKELETAL: No joint swelling or deformity. EXTREMITIES: No cyanosis, clubbing, or pedal edema. NEUROLOGICAL: Gross neurological examination did not reveal any focal deficits. SKIN: No rashes. Assessment: Altered mental status with metabolic/toxic encephalopathy secondary to medication effect, improved Hypoglycemia, improved related to her diabetes mellitus with poor oral intake, improved Mild urinary retention with right hydronephrosis, with normal kidney function. Possible Acute urinary tract infection, culture showing staphylococcus epidermidis completed antibiotic therapy Alzheimer dementia with behavioral problems. Diabetes mellitus with hyperglycemia Low vitamin B12 C5-C6 spinal stenosis with right upper extremity/shoulder pain and no weakness Generalized weakness GI Prophylaxis DVT Prophylaxis No Code Plan: Infectious disease consultation, completed antibiotic therapy while inpatient Continue to monitor glucose, daughter is requesting a glucometer as she does not have one at home and discussed the case management who is providing a glucometer for her on discharge Seroquel adjustments made and patient tolerating well Continue on flomax, indwelling catheter in place and patient will follow up with urology outpatient Neurology service has signed off Continue on bowel regimen Psychiatry evaluation completed today and deemed patient medically incompetent to make own decisions Family following with case management and [facility]. Discharge planning in process Patients daughter would like make arrangements for patient to be brought home with hospice services and she has been speaking with [facility]. She does not currently have a PCP in [place] at this time. Possible discharge in 24 hours The impression and plan of care has been dictated by Latanya Moore, Nurse Practitioner as directed. Dr. Ines MD I have performed a history and examination and MDM of this patient, discussed the same with the dictator, and agree with the dictator's assessment and plan as written ,documented as a scribe. Based on total visit time, I have performed more than 50% of the visit. Objective - Vital Signs Vital signs: Vital Signs Temp 98.2 F 12/11/21 08:00 Pulse 73 12/11/21 08:00 Resp 12 12/11/21 08:00 BP 175/71 12/11/21 08:00 Pulse Ox 97 12/11/21 08:00 FiO2 Intake & Output 12/10/21 12/11/21 12/11/21 18:59 06:59 18:59 Output Total 800 Balance -800 Weight 53.7 kg Output: Urine 800 Other: Voiding Method Indwelling Catheter Indwelling Catheter - Labs CBC & Chem 7: 12/07/21 07:30 12/08/21 08:55 Labs: Abnormal Lab Results - Last 24 Hours (Table) 12/10/21 12/10/21 12/10/21 Range/Units 11:11 16:23 20:59 POC Glucose (mg/dL) 154 H 244 H 261 H (70-110) mg/dL 12/11/21 Range/Units 07:15 POC Glucose (mg/dL) 132 H (70-110) mg/dL
--- NOTE | 2021-12-11 10:03 | P.DS ---
Providers Date of admission: 11/22/21 12:49 Expected date of discharge: 12/11/21 Attending physician: Kia Currie MD Consults: 11/22/21 12:41 Consult Physician Routine Consulting Provider: Jesús Woo Consult Reason/Comments: ams Do you want consulting provider notified?: Already Contacted Consult Physician Routine Consulting Provider: Christo Montalvo Consult Reason/Comments: history of seroquel use Do you want consulting provider notified?: Yes 11/22/21 15:34 Consult Physician Routine Consulting Provider: Black Levin Consult Reason/Comments: canal stenosis per cervical CT reported but I feel not significant Do you want consulting provider notified?: Yes 11/26/21 19:29 Consult Physician Routine Consulting Provider: Ranjeet Sandoval Consult Reason/Comments: uti Do you want consulting provider notified?: Yes, Notify in am 12/04/21 15:50 Consult Physician Routine Consulting Provider: Ang Mcbride Consult Reason/Comments: IPR Do you want consulting provider notified?: Yes 12/06/21 15:04 Consult Physician Routine Consulting Provider: Rafael Bird Consult Reason/Comments: competence Do you want consulting provider notified?: Yes Primary care physician: Physician Nonstaff Hospital Course: Final diagnosis Altered mental status with metabolic/toxic encephalopathy secondary to medication effect, improved Hypoglycemia, improved related to her diabetes mellitus with poor oral intake, improved Mild urinary retention with right hydronephrosis, with normal kidney function. Possible Acute urinary tract infection, culture showing staphylococcus epidermidis completed antibiotic therapy Alzheimer dementia with behavioral problems. Diabetes mellitus with hyperglycemia Low vitamin B12 C5-C6 spinal stenosis with right upper extremity/shoulder pain and no weakness Generalized weakness GI Prophylaxis DVT Prophylaxis No Code Discharge disposition Patient is being discharged in a stable condition with guarded prognosis to home with [facility]. Patient will follow-up with physicians in the outpatient setting upon discharge. Patient is to continue with Seroquel as scheduled and as needed. Total time taken is greater than 35 minutes. Hospital course This is a 81year-old female who was recently admitted with increased weakness and lethargy with possible UTI with anxiety following. Patient has been continued on IV antibiotics and completed a course for UTI. Patient does have advanced dementia that appears to be exacerbated at times and had workup and has also had prolonged hospitalization. Plan initially for was possible rehab although family has discussed with [facility] and would like the patient to go home with hospice with the daughter. Arrangements are being 8 for discharge planning and necessary equipment at the home to care for her. Daughter concerned that she has no glucometer and case management following and has provided a glucometer on discharge for her. Recommend continue Seroquel as needed during the day and scheduled at night as patient can become quite agitated and this has been helping her during hospitalization. Does continue with an indwelling Moore catheter and will continue as patient was having some retention and will follow-up with urology outpatient. Daughter at the bedside and questions and concerns were answered. Patient is following with [facility]. Currently no reports of chest pain, shortness of breath, or palpitations. Patient is afebrile. No reports of nausea or vomiting and patient is tolerating diet. Patient will be discharged home today on hospice. Physical exam: Gen: This is a 81-year-old female awake, alert and oriented 1, well-developed, well-nourished HEENT: Head is atraumatic, normocephalic. Pupils equal, round. Sclerae is anicteric. NECK: Supple. No JVD. No lymphadenopathy. No thyromegaly. LUNGS: Clear to auscultation. No wheezes or rhonchi. No intercostal retractions. HEART: Regular rate and rhythm. No murmur. ABDOMEN: Soft. Bowel sounds are present. No masses. No tenderness. EXTREMITIES: No pedal edema. No calf tenderness. NEUROLOGICAL: Patient is awake, alert and oriented x3. Cranial nerves 2 through 12 are grossly intact. Diffusely weak Please refer to medication reconciliation sheet for a list of medications. The impression and plan of care has been dictated by Latanya Moore, Nurse Practitioner as directed. Dr. Ines MD I have performed a history and examination and MDM of this patient, discussed the same with the dictator, and agree with the dictator's assessment and plan as written ,documented as a scribe. Based on total visit time, I have performed more than 50% of the visit. Patient Condition at Discharge: Fair Plan - Discharge Summary Discharge Rx Participant: No New Discharge Prescriptions: New Acetaminophen Tab [Tylenol] 650 mg PO Q6HR PRN tab PRN Reason: Mild Pain Or Fever > 100.5 Cyanocobalamin [Vitamin B-12] 1,000 mcg PO DAILY tab Docusate [Colace] 100 mg PO DAILY #2 capsule Tamsulosin [Flomax] 0.4 mg PO PC-SUPPER cap Sennosides [Senokot] 8.6 mg PO BID PRN tab PRN Reason: Constipation QUEtiapine [SEROquel] 25 mg PO DAILY PRN #3 tab PRN Reason: Agitation INSULIN ASPART (NovoLOG) [NovoLOG (formulary)] 0 unit SQ ACHS each Losartan [Cozaar] 100 mg PO DAILY tab Atorvastatin [Lipitor] 20 mg PO HS tab Clopidogrel [Plavix] 75 mg PO HS tab QUEtiapine [SEROquel] 12.5 mg PO HS #15 tab Continue Potassium Gluconate [Potassium Gluconate ER] 99 mg PO DAILY Metoprolol Tartrate [Lopressor] 25 mg PO BID Memantine HCl [Memantine HCl ER] 21 mg PO HS Discontinued QUEtiapine [SEROquel] 50 mg PO HS Losartan Potassium [Cozaar] 100 mg PO DAILY QUEtiapine FUMARATE [SEROquel] 25 mg PO HS Insulin Glargine,Hum.rec.anlog [Lantus Solostar Pen] 7 units SQ HS sitaGLIPtin [Januvia] 100 mg PO HS metFORMIN HCL [Glucophage] 1,000 mg PO BID Discharge Medication List Memantine HCl [Memantine HCl ER] 21 mg PO HS 11/22/21 [History] Metoprolol Tartrate [Lopressor] 25 mg PO BID 11/22/21 [History] Potassium Gluconate [Potassium Gluconate ER] 99 mg PO DAILY 11/22/21 [History] Acetaminophen Tab [Tylenol] 650 mg PO Q6HR PRN tab 11/26/21 [Rx] Atorvastatin [Lipitor] 20 mg PO HS tab 11/26/21 [Rx] Clopidogrel [Plavix] 75 mg PO HS tab 11/26/21 [Rx] Cyanocobalamin [Vitamin B-12] 1,000 mcg PO DAILY tab 11/26/21 [Rx] Docusate [Colace] 100 mg PO DAILY #2 capsule 12/02/21 [Rx] Sennosides [Senokot] 8.6 mg PO BID PRN tab 12/02/21 [Rx] Tamsulosin [Flomax] 0.4 mg PO PC-SUPPER cap 12/02/21 [Rx] INSULIN ASPART (NovoLOG) [NovoLOG (formulary)] 0 unit SQ ACHS each 12/04/21 [Rx] Losartan [Cozaar] 100 mg PO DAILY tab 12/04/21 [Rx] QUEtiapine [SEROquel] 12.5 mg PO HS #15 tab 12/04/21 [Rx] QUEtiapine [SEROquel] 25 mg PO DAILY PRN #3 tab 12/04/21 [Rx] Follow up Appointment(s)/Referral(s): Jone Oliver MD [STAFF PHYSICIAN] - 1-2 Days [facility], [NON-STAFF] - As Needed Nonstaff,Physician [Primary Care Provider] - 1-2 days Black Levin DO [Doctor of Osteopathic Medicine] - 1 Week Titus Urena MD [STAFF PHYSICIAN] - 1 Week (Urologist, kidney doctor, for your urine retention) Ambulatory/Diagnostic Orders: Basic Metabolic Panel [LAB.AMB] Time Frame: 2 Days, Location: None Selected Complete Blood Count w/diff [LAB.AMB] Time Frame: 2 Days, Location: None Selected Magnesium [LAB.AMB] Time Frame: 2 Days, Location: None Selected Activity/Diet/Wound Care/Special Instructions: Discharge with indwelling catheter Follow up urology outpatient Repeat labs in 2 to 3 days Patient is being sent on seroquel 25 mg PO at bedtime with an additional 25 mg PO ordered as needed for agitation/insomnia. Patient also has 25 mg PO seroquel ordered daily as needed for agitation Continue oral cefdinir 300 mg every 12 hours for 3 more days. Home with [facility] with daughter Discharge Disposition: HOME WITH HOSPICE
[2021-12-11] MEDS: FAMOTIDINE 20 MG/2 ML VIAL IV SCH (10:04)
[2021-12-11 11:33] LABS: Glucose,Whole Blood 186 mg/dL (70-110)
--- NOTE | 2021-12-11 14:28 | P.PN ---
Subjective Progress Note Date: 12/09/21 Principal diagnosis: Urinary tract infection Patient is a 81-year-old female presenting to the hospital with weakness and lethargy with initial workup for possible CVA and she did have a negative UA on admission subsequently positive UA concerning for a cath associated UTI in this patient with a penicillin ALLERGY. On today's evaluation that is 12/09/2021, The patient remains to be afebrile, the patient is breathing comfortably room air no chest pain shortness with or cough no abdominal pain and no diarrhea Objective - Vital Signs Vital signs: Vital Signs Temp 98 F 12/09/21 19:34 Pulse 82 12/09/21 19:34 Resp 16 12/09/21 19:34 BP 150/78 12/09/21 19:34 Pulse Ox 96 12/09/21 19:34 FiO2 Intake & Output 12/09/21 12/09/21 12/10/21 06:59 18:59 06:59 Output Total 200 Balance -200 Output: Urine 200 Other: Voiding Method Indwelling Catheter Indwelling Catheter - Exam GENERAL DESCRIPTION: An elderly female lying in bed in no distress RESPIRATORY SYSTEM: Unlabored breathing , decreased breath sounds at bases HEART: S1 S2 regular rate and rhythm , ABDOMEN: Soft , no tenderness EXTREMITIES: No edema feet - Labs CBC & Chem 7: 12/07/21 07:30 12/08/21 08:55 Labs: Abnormal Lab Results - Last 24 Hours (Table) 12/09/21 12/09/21 12/09/21 Range/Units 07:12 16:43 21:03 POC Glucose (mg/dL) 160 H 233 H 160 H (70-110) mg/dL Assessment and Plan (1) Urinary tract infection Current Visit: Yes Status: Acute Code(s): N39.0 - URINARY TRACT INFECTION, SITE NOT SPECIFIED SNOMED Code(s): 06344575 Plan: 1patient with significantly positive UA in this patient initial presentation to the hospital with mental status changes and initial concern for CVA however the patient did have work-up including CT and MRI that has been negative patient did have a normal UA on admission and subsequently was significantly positive UA with concern for possible catheter associated UTI. 2penicillin allergy that would limit the number of antibiotics safe to use However the patient has tolerated Omnicef without any problems 3-the patient urine culture with staph epi oxacillin sensitive to Rocephin , patient underlying UTI has been adequately treated will monitor closely off antibiotic therapy Time with Patient: Less than 30
--- NOTE | 2021-12-11 14:29 | P.PN ---
Subjective Progress Note Date: 12/10/21 Principal diagnosis: Urinary tract infection Patient is a 81-year-old female presenting to the hospital with weakness and lethargy with initial workup for possible CVA and she did have a negative UA on admission subsequently positive UA concerning for a cath associated UTI in this patient with a penicillin ALLERGY. On today's evaluation that is 12/10/2021, The patient is afebrile, the patient is breathing comfortably room air, denies chest pain shortness of breath and no cough no abdominal pain and no diarrhea Objective - Vital Signs Vital signs: Vital Signs Temp 99.0 F 12/10/21 20:00 Pulse 82 12/10/21 20:00 Resp 16 12/10/21 20:00 BP 177/82 12/10/21 20:00 Pulse Ox 96 12/10/21 20:00 FiO2 Intake & Output 12/10/21 12/10/21 12/11/21 06:59 18:59 06:59 Output Total 250 Balance -250 Output: Urine 250 Other: Voiding Method Indwelling Catheter Indwelling Catheter Indwelling Catheter - Exam GENERAL DESCRIPTION: An elderly female lying in bed in no distress RESPIRATORY SYSTEM: Unlabored breathing , decreased breath sounds at bases HEART: S1 S2 regular rate and rhythm , ABDOMEN: Soft , no tenderness EXTREMITIES: No edema feet - Labs CBC & Chem 7: 12/07/21 07:30 12/08/21 08:55 Labs: Abnormal Lab Results - Last 24 Hours (Table) 12/10/21 12/10/21 12/10/21 Range/Units 11:11 16:23 20:59 POC Glucose (mg/dL) 154 H 244 H 261 H (70-110) mg/dL Assessment and Plan (1) Urinary tract infection Current Visit: Yes Status: Acute Code(s): N39.0 - URINARY TRACT INFECTION, SITE NOT SPECIFIED SNOMED Code(s): 44487919 Plan: 1patient with significantly positive UA in this patient initial presentation to the hospital with mental status changes and initial concern for CVA however the patient did have work-up including CT and MRI that has been negative patient did have a normal UA on admission and subsequently was significantly positive UA with concern for possible catheter associated UTI. 2penicillin allergy that would limit the number of antibiotics safe to use However the patient has tolerated Omnicef without any problems 3-the patient urine culture with staph epi oxacillin sensitive to Rocephin , patient underlying UTI has been adequately treated , And is currently doing well off antibiotic therapy no need for antibiotic on discharge Time with Patient: Less than 30
[2021-12-11] MEDS: QUEtiapine 25 MG TAB PO PRN (15:01)
== END 2021-12-11 16:22 | disposition hospice, inpatient (51) | DRG 91 ==
LOC: EC 10:18 → 3SCARD 12:49 → 4SSUR 12-04 23:03
PROVIDERS: ADMIT Internal Medicine; ATTEND Internal Medicine
DX: G92.8 Other toxic encephalopathy (principal); G93.41 Metabolic encephalopathy; T83.511A Infection and inflammatory reaction due to indwelling urethral catheter, initial encounter; N13.6 Pyonephrosis; F02.81 Dementia in other diseases classified elsewhere, unspecified severity, with behavioral disturbance; J98.11 Atelectasis; T43.595A Adverse effect of other antipsychotics and neuroleptics, initial encounter; E11.649 Type 2 diabetes mellitus with hypoglycemia without coma; E11.65 Type 2 diabetes mellitus with hyperglycemia; E11.40 Type 2 diabetes mellitus with diabetic neuropathy, unspecified; Z79.4 Long term (current) use of insulin; Z79.84 Long term (current) use of oral hypoglycemic drugs; G30.9 Alzheimer's disease, unspecified; I10 Essential (primary) hypertension; R29.810 Facial weakness; R33.9 Retention of urine, unspecified; B95.7 Other staphylococcus as the cause of diseases classified elsewhere; M48.02 Spinal stenosis, cervical region; E66.9 Obesity, unspecified; M47.819 Spondylosis without myelopathy or radiculopathy, site unspecified; Z68.32 Body mass index [BMI] 32.0-32.9, adult; T50.901A Poisoning by unspecified drugs, medicaments and biological substances, accidental (unintentional), initial encounter; Z66 Do not resuscitate; Z51.5 Encounter for palliative care; Z28.21 Immunization not carried out because of patient refusal; E53.8 Deficiency of other specified B group vitamins; M19.031 Primary osteoarthritis, right wrist; M25.511 Pain in right shoulder; R26.9 Unspecified abnormalities of gait and mobility; K21.9 Gastro-esophageal reflux disease without esophagitis; M25.551 Pain in right hip; K57.30 Diverticulosis of large intestine without perforation or abscess without bleeding; R45.1 Restlessness and agitation; Z87.11 Personal history of peptic ulcer disease; Z86.010 Personal history of colon polyps; Z71.3 Dietary counseling and surveillance; Z88.6 Allergy status to analgesic agent; Z88.5 Allergy status to narcotic agent; Z88.0 Allergy status to penicillin; Z79.899 Other long term (current) drug therapy
CPT/HCPCS: 36415; 70450; 70496; 70498; 70551; 71045; 72125; 73502; 74018; 76770; 80048; 80053; 80061; 80076; 80306; 81001; 81003; 82607; 82746; 83036; 83605; 83735; 84132; 84145; 84443; 84484; 85025; 85610; 85730; 87077; 87086; 87186; 93005; 95816; 96365; 96366; 99285